=== PATIENT | female | born 1935 | race Caucasian/White ===

== ENCOUNTER 2018-12-20 09:12 | Outpatient (POV) | END 2018-12-20 17:00 | LOC: OUTPT 09:12 | PROVIDERS: ATTEND Otolaryngology | DX: H91.90 Unspecified hearing loss, unspecified ear (principal) ==

== ENCOUNTER 2020-10-21 12:08 | Inpatient (IN) ==
--- NOTE | 2020-10-21 12:21 | ED.PDOC ---
General ED Provider: Dr. ALEC DERAS Chief Complaint: Arrhythmia Stated Complaint: Chest pressure and palpitations. Time Seen by Provider: 10/21/20 12:20 Mode of Arrival: Walk-In Information Source: Patient Exam Limitations: No limitations Primary Care Provider: ALEAH SALES Nursing and Triage Documentation Reviewed and Agree: Yes Does patient meet sepsis criteria?: No System Inflammatory Response Syndrome: Not Applicable Sepsis Protocol: For patient's 13 years and over: Temp is 96.8 and below OR 101 and greater Pulse >90 BPM Resp >20/minute Acutely Altered Mental Status Are patient's symptoms suggestive of a new infection, such as: -Pneumonia -Skin, Soft Tissue -Endocarditis -UTI -Bone, Joint Infection -Implantable Device -Acute Abdominal Infection -Wound Infection -Meningitis -Blood Stream Catheter Infection -Unknown Cardiovascular Complaint Exam Palpitations Complaint/Exam Symptoms Are: Resolved Timing: Constant (For several minutes, then stopped, started and ended this morning.) Initial Severity: Moderate Current Severity: Mild Character: Reports Fast and Pounding Aggravating: Reports None Alleviating: Reports None Associated Signs and Symptoms: Reports Chest pain; Denies Lightheadedness, Dizziness, Syncope, Shortness of breath, Diaphoresis, Nausea and Vomiting Related Surgical History: Reports None Cardiac Risk Factors: Reports Family history Pulmonary Embolism Risk Factors: Reports None Atrial Fibrillation Risk Factors: Reports None Thyroid Exam: Normal Differential Diagnoses: Cardiomyopathy, Myocarditis, Pericarditis, Paroxysmal SVT and Other (A-fib) Review of Systems Review Of Systems Constitutional: Reports No symptoms Eyes: Reports No symptoms (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.) Ears, Nose, Mouth, Throat: Reports No symptoms Respiratory: Reports No symptoms Cardiac: Reports Chest pain and Palpitations GI: Reports No symptoms : Reports No symptoms Musculoskeletal: Reports No symptoms Skin: Reports No symptoms Neurological: Reports No symptoms Endocrine: Reports No symptoms Hematologic/Lymphatic: Reports No symptoms All Other Systems: Reviewed and Negative [facility] Surgical History History of section Status post appendectomy Status post hysterectomy Female Reproductive History Menstrual Hx Hysterectomy: No Physical Exam Physical Exam Appearance: Reports Well-appearing Ill-appearing: Not Applicable Pain Distress: Not Applicable Eyes: Reports ROSY and Other (Left eye lid edema ,post-surgical changes.) ENT: Reports Oropharynx normal Neck: Supple Respiratory: Reports Airway patent Cardiovascular: Reports RRR, Pulses normal, No rub and No murmur GI/: Reports Soft and Nontender Musculoskeletal: Reports Normal strength, ROM intact (for age), No edema and No calf tenderness Skin: Reports Warm and Normal color Neurological: Reports Sensation intact, Motor intact, Alert and Oriented Psychiatric: Reports Affect appropriate and Mood appropriate Interpretation Radiology Interpretation Radiology Interpretation By: Radiologist Radiology Results: Positive Exam Interpreted: Portable CXR Xray Comments: 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 Appearance: NAD Lungs: Clear Skin: Warm and Dry Neuro: Alert and Oriented X3 CV: RRR Physician Notification Case Discussed Physician Notified: Dr. Sales Time of Notification: 14:00 Physician Notified: Place in [facility], start cardizem po 60 mg bid Admit To: Observation Critical Care Note Critical Care Note Total Critical Care Time (mins): 0 Course Course Hematology/Chemistry: 10/21/20 12:47 10/21/20 12:47 Orders, Labs, Meds: Lab Review 10/21/20 10/21/20 10/21/20 12:47 12:47 12:47 WBC 8.43 RBC 4.39 Hgb 12.8 Hct 38.5 MCV 87.7 MCH 29.2 MCHC 33.2 RDW Coeff of Eulalia 15.3 H Plt Count 151 Immature Gran % (Auto) 2.1 Neut % (Auto) 70.6 Lymph % (Auto) 22.2 Shelby % (Auto) 4.6 Eos % (Auto) 0.1 Baso % (Auto) 0.4 Neut # (Auto) 6.0 Lymph # (Auto) 1.9 Shelby # (Auto) 0.4 Eos # (Auto) 0.0 Baso # (Auto) 0.0 Immature Gran # (Auto) 0.2 PT 9.8 INR 0.92 APTT 21.6 L Sodium 140.1 Potassium 4.56 Chloride 106.3 Carbon Dioxide 27.4 Anion Gap 10.96 BUN 22.2 H Creatinine 0.73 Estimated GFR (MDRD) 76.00 BUN/Creatinine Ratio 30.41 Glucose 106.2 H Calcium 9.11 Total Bilirubin 0.47 AST 21.9 ALT 14.4 Alkaline Phosphatase 58.4 Troponin I < 0.012 NT-Pro-B Natriuret Pep 521.000 H Total Protein 6.66 Albumin 4.15 Globulin 2.51 Albumin/Globulin Ratio 1.65 Urine Color Urine Clarity Urine pH Ur Specific [place] Urine Protein Urine Glucose (UA) Urine Ketones Urine Blood Urine Nitrite Urine Bilirubin Urine Urobilinogen Ur Leukocyte Esterase Urine Microscopic RBC Ur Squamous Epith Cells 10/21/20 13:00 WBC RBC Hgb Hct MCV MCH MCHC RDW Coeff of Eulalia Plt Count Immature Gran % (Auto) Neut % (Auto) Lymph % (Auto) Shelby % (Auto) Eos % (Auto) Baso % (Auto) Neut # (Auto) Lymph # (Auto) Shelby # (Auto) Eos # (Auto) Baso # (Auto) Immature Gran # (Auto) PT INR APTT Sodium Potassium Chloride Carbon Dioxide Anion Gap BUN Creatinine Estimated GFR (MDRD) BUN/Creatinine Ratio Glucose Calcium Total Bilirubin AST ALT Alkaline Phosphatase Troponin I NT-Pro-B Natriuret Pep Total Protein Albumin Globulin Albumin/Globulin Ratio Urine Color Yellow Urine Clarity Clear Urine pH 6.5 Ur Specific [place] <=1.005 Urine Protein Negative Urine Glucose (UA) Negative Urine Ketones Negative Urine Blood Trace-lysed Urine Nitrite Negative Urine Bilirubin Negative Urine Urobilinogen 0.2 Ur Leukocyte Esterase Negative Urine Microscopic RBC 0-2 Ur Squamous Epith Cells Not present Orders Category Date Time Status EKG-(ED ONLY) Stat CARDIO 10/21/20 12:33 Ordered ED IV/MEDIPORT/POWERPORT .ONCE EMERGENCY 10/21/20 12:33 Active CBC W/ AUTO DIFF Stat LAB 10/21/20 12:33 Ordered COMPREHENSIVE METABOLIC PANEL Stat LAB 10/21/20 12:47 Received NT-PROBNP Stat LAB 10/21/20 12:47 Received PARTIAL THROMBOPLASTIN TIME Stat LAB 10/21/20 12:47 Received PT WITH INR Stat LAB 10/21/20 12:47 Received TROPONIN I Stat LAB 10/21/20 12:47 Received URINALYSIS C & S IF INDICATED Stat LAB 10/21/20 13:02 Ordered 0.9 % Sodium Chloride [Saline Flush] MEDS 10/21/20 12:33 Active 1 syr IVF PRN PRN Aspirin [Aspirin Chewable] MEDS 10/21/20 12:33 Discontinued 81 mg PO ONCE ONE Nitroglycerin [Nitrostat] MEDS 10/21/20 12:33 Active 0.4 mg SL Q5MIN X 3 DOSES PRN CHEST, 1V AP ONLY Stat RADS 10/21/20 12:33 Ordered Medications Generic Name Dose Route Start Last Admin Trade Name Freq PRN Reason Stop Dose Admin Nitroglycerin 0.4 mg 10/21/20 12:33 Nitroglycerin 0.4 Mg Tab.Subl SL Q5MIN X 3 DOSES PRN Chest Pain Sodium Chloride 1 syr 10/21/20 12:33 0.9% Sodium Chloride 10 Ml Disp.Syrin IVF PRN PRN To flush IV Discontinued Medications Generic Name Dose Route Start Last Admin Trade Name Freq PRN Reason Stop Dose Admin Aspirin 81 mg 10/21/20 12:33 10/21/20 13:09 Aspirin 81 Mg Tab.Chew PO 10/21/20 12:34 81 mg ONCE ONE Administration Labs reviewed, WNL. NTG not given because had no CP and BP improving. Vital Signs: Temp Pulse Resp BP Pulse Ox 10/21/20 12:12 96.6 F L 78 16 203/79 H 100 VALERIE Risk Score VALERIE Risk Score: Risk Score Odds of by 30D 0 0.1 (0.1-0.2) 1 0.3 (0.2-0.3) 2 0.4 (0.3-0.5) 3 0.7 (0.6-0.9) 4 1.2 (1.0-1.5) 5 2.2 (1.9-2.6) 6 3.0 (2.5-3.6) 7 4.8 (3.8-6.1) Discharge Plan Discharge Patient Disposition: PLACED OBSERVATION Discharge Problem: Chest pain, Heart palpitations Prescriptions: No Action atorvastatin 20 MG tablet 20 mg PO DAILY RF: 0 tramadol 50 MG tablet 50 mg PO BID RF: 0 prednisone 5 mg tablet 5 mg PO DAILY RF: 0 ropinirole 0.25 mg tablet 0.25 mg PO BEDTIME RF: 0 pantoprazole 40 mg tablet,delayed release (DR/EC) 40 mg PO DAILY RF: 0 naproxen 375 mg tablet,delayed release (DR/EC) 375 mg PO BIDWMEAL RF: 0 ED Provider: ALEC DERAS Condition: Stable Physician Progress Note: [Chest pain/palpitations. Work-up unremarkable. HTN persisting. Discussed with Dr. Sales, place in obs tele.]
[2020-10-21] MEDS ORDERED: NITROSTAT SL PRN ×2 (12:33→13:54)
[2020-10-21] MEDS ORDERED: ASPIRIN CHEWABLE PO ONE (12:33)
[2020-10-21 12:51] LABS: BASOPHILS % (AUTO) 0.4 % (0.0-3.0); EOSINOPHILS % (AUTO) 0.1 % (0.0-7.0); HEMATOCRIT 38.5 % (37.0-47.0); HEMOGLOBIN 12.8 g/dl (12.0-16.0); IMMATURE GRANULOCYTE # (AUTO) 0.2 (0.0-1.0); IMMATURE GRANULOCYTE % (AUTO) 2.1 % (0.0-5.0); LYMPHOCYTES # (AUTO) 1.9 K/uL (0.60-3.4); LYMPHOCYTES % (AUTO) 22.2 (10.0-50.0); MEAN CORPUSCULAR HEMOGLOBIN 29.2 pg (27.0-31.0); MEAN CORPUSCULAR HGB CONC 33.2 (31.8-35.4); MEAN CORPUSCULAR VOLUME 87.7 fl (81.0-99.0); MONOCYTES # (AUTO) 0.4 K/uL (0.4-2.0); MONOCYTES % (AUTO) 4.6 (0-10); NEUTROPHILS % (AUTO) 70.6 % (42.2-75.2); PLATELET COUNT 151 10^3/uL (140-440); RDW COEFFICIENT OF VARIATION 15.3 % (11.6-14.8); RED BLOOD COUNT 4.39 10^6/ul (4.20-5.40); WHITE BLOOD COUNT 8.43 K/ul (4.6-10.2)
[2020-10-21 13:05] LABS: ALANINE AMINOTRANSFERASE 14.4 U/L (0-35); ALBUMIN 4.15 g/dL (3.5-5.0); ALKALINE PHOSPHATASE 58.4 U/L (53-141); ASPARTATE AMINO TRANSFERASE 21.9 U/L (14-36); BILIRUBIN,TOTAL 0.47 mg/dL (0.2-1.3); BLOOD UREA NITROGEN 22.2 mg/dL (7-17); CALCIUM 9.11 mg/dL (8.4-10.2); CARBON DIOXIDE 27.4 mmol/L (22-30.0); CHLORIDE 106.3 mmol/L (98-107); CREATININE 0.73 mg/dL (0.60-1.30); GLUCOSE 106.2 mg/dL (74-106); POTASSIUM 4.56 mmol/L (3.5-5.1); SODIUM 140.1 mmol/L (134.5-145); TOTAL PROTEIN 6.66 g/dL (6.3-8.2)
[2020-10-21 13:10] LABS: BILIRUBIN,URINE Negative (NEGATIVE); CLARITY,URINE Clear (CLEAR); COLOR,URINE Yellow (YELLOW); GLUCOSE, URINE (UA) Negative (NEGATIVE); KETONES,URINE Negative (NEGATIVE); LEUKOCYTE ESTERASE ,URINE Negative (NEGATIVE); NITRITE,URINE Negative (NEGATIVE); PH,URINE 6.5 (5-9); PROTEIN,URINE Negative (NEGATIVE); URINE, BLOOD Trace-lysed (NEGATIVE); UROBILINOGEN,URINE 0.2 (0.2)
[2020-10-21 13:14] LABS: PARTIAL THROMBOPLASTIN TIME 21.6 SEC (23.9-40.0); PROTHROMBIN TIME 9.8 SEC (9.3-11.0)
--- NOTE | 2020-10-21 13:14 | DI ---
EXAM: Chest one view HISTORY: Dyspnea COMPARISON: None TECHNIQUE: Single view of the chest was performed FINDINGS: No airspace consolidation. Granulomas calcification. There is no pleural effusion or pne umothorax. The heart is enlarged in size. The mediastinal contour is normal, noting atherosclerosis . There are no acute abnormalities of the bones. IMPRESSION: Cardiomegaly. No acute cardiopulmonary process.
[2020-10-21 13:15] LABS: SQUAMOUS EPITHELIAL CELL,UR NOT PRESENT (0-5); URINE RBC, MICROSCOPIC 0-2 (0-2)
[2020-10-21 13:17] LABS: TROPONIN I < 0.012 ng/ml (0.0000-0.120)
[2020-10-21] MEDS ORDERED: ATROPINE SULFATE PFS IVP PRN (13:54)
[2020-10-21] MEDS ORDERED: TYLENOL PO PRN (13:54)
[2020-10-21 14:24] LABS: BORDETELLA PARAPERTUSSIS (PCR) NOT DETECTED (NOT DETECT); BORDETELLA PERTUSSIS (PCR) NOT DETECTED (NOT DETECT); CHLAMYDIA PNEUMONIAE (PCR) NOT DETECTED (NOT DETECT); CORONAVIRUS 229E (PCR) NOT DETECTED (NOT DETECT); CORONAVIRUS HKU1 (PCR) NOT DETECTED (NOT DETECT); CORONAVIRUS NL63 (PCR) NOT DETECTED (NOT DETECT); CORONAVIRUS OC43 (PCR) NOT DETECTED (NOT DETECT); HUMAN METAPNEUMOVIRUS (PCR) NOT DETECTED (NOT DETECT); HUMAN RHINOVIRUS/ENTEROV (PCR) NOT DETECTED (NOT DETECT); INFLUENZA B (PCR) NOT DETECTED (NOT DETECT); MYCOPLASMA PNEUMONIAE (PCR) NOT DETECTED (NOT DETECT); PARAINFLUENZA VIRUS 1 (PCR) NOT DETECTED (NOT DETECT); PARAINFLUENZA VIRUS 2 (PCR) NOT DETECTED (NOT DETECT); PARAINFLUENZA VIRUS 3 (PCR) NOT DETECTED (NOT DETECT); PARAINFLUENZA VIRUS 4 (PCR) NOT DETECTED (NOT DETECT); RESPIRATORY SYNCYTIAL V (PCR) NOT DETECTED (NOT DETECT); SARS_COV_2 (PCR) NOT DETECTED (NOT DETECT)
[2020-10-21] MEDS ORDERED: CATAPRES PO ONE (14:42)
[2020-10-21 15:11] LABS: ADENOVIRUS (PCR) NOT DETECTED (NOT DETECT)
[2020-10-21 16:12] VITALS: BMI 25.0
[2020-10-21] MEDS ORDERED: NAPROXEN 375 MG PO SCH (16:15)
[2020-10-21] MEDS: CARDIZEM PO SCH ×2 (17:34→20:55)
[2020-10-21] MEDS: REQUIP PO SCH (20:55)
[2020-10-21] MEDS: ULTRAM PO SCH (20:55)
[2020-10-21 20:59] LABS: CREATINE KINASE 29.4 U/L (30-135)
[2020-10-21 21:12] LABS: TROPONIN I 0.012 ng/ml (0.0000-0.120)
[2020-10-22 04:46] LABS: BASOPHILS % (AUTO) 0.6 % (0.0-3.0); EOSINOPHILS % (AUTO) 0.5 % (0.0-7.0); HEMATOCRIT 36.5 % (37.0-47.0); HEMOGLOBIN 11.9 g/dl (12.0-16.0); IMMATURE GRANULOCYTE # (AUTO) 0.2 (0.0-1.0); IMMATURE GRANULOCYTE % (AUTO) 2.8 % (0.0-5.0); LYMPHOCYTES # (AUTO) 2.3 K/uL (0.60-3.4); LYMPHOCYTES % (AUTO) 35.5 (10.0-50.0); MEAN CORPUSCULAR HEMOGLOBIN 28.9 pg (27.0-31.0); MEAN CORPUSCULAR HGB CONC 32.6 (31.8-35.4); MEAN CORPUSCULAR VOLUME 88.6 fl (81.0-99.0); MONOCYTES # (AUTO) 0.5 K/uL (0.4-2.0); MONOCYTES % (AUTO) 7.9 (0-10); NEUTROPHILS # (AUTO) 3.4 K/ul (2.0-6.9); NEUTROPHILS % (AUTO) 52.7 % (42.2-75.2); PLATELET COUNT 141 10^3/uL (140-440); RDW COEFFICIENT OF VARIATION 15.2 % (11.6-14.8); RED BLOOD COUNT 4.12 10^6/ul (4.20-5.40); WHITE BLOOD COUNT 6.42 K/ul (4.6-10.2)
[2020-10-22 04:54] LABS: ALANINE AMINOTRANSFERASE 12.8 U/L (0-35); ALBUMIN 3.65 g/dL (3.5-5.0); ALKALINE PHOSPHATASE 51.2 U/L (53-141); ASPARTATE AMINO TRANSFERASE 18.4 U/L (14-36); BILIRUBIN,TOTAL 0.49 mg/dL (0.2-1.3); BLOOD UREA NITROGEN 24.3 mg/dL (7-17); CALCIUM 9.03 mg/dL (8.4-10.2); CARBON DIOXIDE 31.6 mmol/L (22-30.0); CHLORIDE 103.8 mmol/L (98-107); CREATINE KINASE 24.5 U/L (30-135); CREATININE 0.79 mg/dL (0.60-1.30); POTASSIUM 4.33 mmol/L (3.5-5.1); SODIUM 139.4 mmol/L (134.5-145); TOTAL PROTEIN 5.91 g/dL (6.3-8.2)
[2020-10-22 05:05] LABS: TROPONIN I < 0.012 ng/ml (0.0000-0.120)
[2020-10-22] MEDS: PROTONIX PO SCH (05:41)
[2020-10-22] MEDS: PREDNISONE PO SCH (08:53)
[2020-10-22] MEDS: ULTRAM PO SCH ×2 (08:53→20:34)
[2020-10-22] MEDS: CARDIZEM PO SCH ×2 (08:53→20:34)
[2020-10-22] MEDS: LIPITOR PO SCH (08:53)
[2020-10-22] MEDS: NAPROSYN PO SCH ×2 (08:54→17:44)
--- NOTE | 2020-10-22 09:44 | PCM.PROG ---
Attending Provider: ATTENDING PROVIDER: Dr. ALEAH SALES This patient is seen with Jayla Velasquez, Nurse Practitioner. DATE OF SERVICE: 10/22/20 SUBJECTIVE: This 84 year old /WHITE F was hospitalized 10/21/20. Resting comfortably. No more episodes of tachycardia. Denies chest pain. REVIEW OF SYSTEMS: CONSTITUTIONAL: Fatigue. No night sweats. No malaise, lethargy. No fever or chills. HEENT: Eyes: No visual changes. No eye pain. No eye discharge. ENT: No runny nose. No epistaxis. No sinus pain. No odynophagia. No congestion. RESPIRATORY: No cough, no congestion. No hemoptysis. No shortness of breath. CARDIOVASCULAR: No angina symptoms. No CHF symptoms. No atypical chest pain for CAD. No palpitations. No orthopnea.. GASTROINTESTINAL: No abdominal pain. No nausea or vomiting. No diarrhea or constipation. No hematemesis. No hematochezia. GENITOURINARY: No urgency. No frequency. No dysuria. No hematuria. No obstructive symptoms. No discharge. No pain. No significant abnormal bleeding. MUSCULOSKELETAL: No musculoskeletal pain; no joint swelling. NEUROLOGICAL: Awake, alert, oriented to time, place and person. No headache. No neck pain. No syncope. No seizures. No dizziness. PSYCHIATRIC: Not anxious. No depression. No suicidal thoughts. No homicidal thoughts. SKIN: No rash. No lesions. No wounds. ENDOCRINE: No unexplained weight loss. No weight gain. HEMATOLOGIC/LYMPHATIC: No anemia. No purpura. No petechiae. No prolonged or excessive bleeding. No palpable lymph nodes. PHYSICAL EXAMINATION: GENERAL: The patient is awake, alert and oriented, lying/sitting in bed in no distress. VITAL SIGNS: Temperature 97.4 F, Pulse 54, Respiratory Rate 18, BP 146/56, Pulse Ox 97% HEENT: Head normocephalic, atraumatic. Eyes: Extraocular muscles are intact. Pupils are equal, round and reactive to light and accommodation. Ears: No lesions. Nose appeared normal. Throat: No exudate or erythema. NECK: Supple. No JVD, no carotid bruit. No lymphadenopathy or thyromegaly. LUNGS: Diminished breath sounds. Clear to auscultation. Percussion note normal. Chest symmetrical. HEART: S1, S2, no S3. No murmurs. No cyanosis or clubbing. No ascites. Pulses: Dorsalis pedis and posterior tibial pulses +1 to +2 both sides. ABDOMEN: Soft. Non-tender. Bowel sounds active. No CVA tenderness. No mass felt. EXTREMITIES: No edema. Full range of motion of all extremities, equal. NEUROLOGIC: No focal deficit. Cranial nerves II through XII are grossly intact. No headache. No double vision. SKIN: Not dry. Intact. Turgor-normal. LYMPHATIC: No palpable lymph nodes/no lymphedema. MUSCULOSKELETAL: Normal joints with no swelling. Muscle tone is normal. LAB REVIEW: 10/22/20 04:30 10/22/20 04:30 10/22/20 04:30: WBC 6.42, RBC 4.12 L, Hgb 11.9 L, Hct 36.5 L, MCV 88.6, MCH 28.9, MCHC 32.6, RDW Coeff of Eulalia 15.2 H, Plt Count 141, Immature Gran % (Auto) 2.8, Neut % (Auto) 52.7, Lymph % (Auto) 35.5, Kaufman % (Auto) 7.9, Eos % (Auto) 0.5, Baso % (Auto) 0.6, Neut # (Auto) 3.4, Lymph # (Auto) 2.3, Kaufman # (Auto) 0.5, Eos # (Auto) 0.0, Baso # (Auto) 0.0, Immature Gran # (Auto) 0.2 10/22/20 04:30: Sodium 139.4, Potassium 4.33, Chloride 103.8, Carbon Dioxide 31.6 H, Anion Gap 8.33, BUN 24.3 H, Creatinine 0.79, Estimated GFR (MDRD) 69.00, BUN/Creatinine Ratio 30.75, Glucose 89.0, Calcium 9.03, Total Bilirubin 0.49, AST 18.4, ALT 12.8, Alkaline Phosphatase 51.2 L, Total Creatine Kinase 24.5 L, Troponin I < 0.012, Total Protein 5.91 L, Albumin 3.65, Globulin 2.26, Albumin/Globulin Ratio 1.61 10/21/20 20:46: Total Creatine Kinase 29.4 L, Troponin I 0.012 10/21/20 14:08: Adenovirus (PCR) Not detected, B. pertussis DNA (PCR) Not detected, B.parapertussis DNA PCR Not detected, C. pneumoniae DNA (PCR) Not detected, Coronavirus OC43 (PCR) Not detected, Coronavirus HKU1 (PCR) Not detected, Coronavirus 229E (PCR) Not detected, Coronavirus NL63 (PCR) Not detected, Human Metapneumovir PCR Not detected, Influenza Type A (PCR) Not detected, Influenza B (RT-PCR) Not detected, M. pneumoniae (PCR) Not detected, Parainfluenza 1 (PCR) Not detected, Parainfluenza 2 (PCR) Not detected, Parainfluenza 3 (PCR) Not detected, Parainfluenza 4 (PCR) Not detected, RSV (PCR) Not detected, Entero/Rhino (PCR) Not detected, SARS-CoV-2 (PCR) Not detected 10/21/20 13:00: Urine Color Yellow, Urine Clarity Clear, Urine pH 6.5, Ur Specific [place] <=1.005, Urine Protein Negative, Urine Glucose (UA) Negative, Urine Ketones Negative, Urine Blood Trace-lysed, Urine Nitrite Negative, Urine Bilirubin Negative, Urine Urobilinogen 0.2, Ur Leukocyte Esterase Negative, Urine Microscopic RBC 0-2, Ur Squamous Epith Cells Not present 10/21/20 12:47: TSH 2.660 10/21/20 12:47: Free T4 1.17 10/21/20 12:47: Sodium 140.1, Potassium 4.56, Chloride 106.3, Carbon Dioxide 27.4, Anion Gap 10.96, BUN 22.2 H, Creatinine 0.73, Estimated GFR (MDRD) 76.00, BUN/Creatinine Ratio 30.41, Glucose 106.2 H, Calcium 9.11, Total Bilirubin 0.47, AST 21.9, ALT 14.4, Alkaline Phosphatase 58.4, Troponin I < 0.012, NT-Pro-B Natriuret Pep 521.000 H, Total Protein 6.66, Albumin 4.15, Globulin 2.51, Albumin/Globulin Ratio 1.65 10/21/20 12:47: PT 9.8, INR 0.92, APTT 21.6 L 10/21/20 12:47: WBC 8.43, RBC 4.39, Hgb 12.8, Hct 38.5, MCV 87.7, MCH 29.2, MCHC 33.2, RDW Coeff of Eulalia 15.3 H, Plt Count 151, Immature Gran % (Auto) 2.1, Neut % (Auto) 70.6, Lymph % (Auto) 22.2, Kaufman % (Auto) 4.6, Eos % (Auto) 0.1, Baso % (Auto) 0.4, Neut # (Auto) 6.0, Lymph # (Auto) 1.9, Kaufman # (Auto) 0.4, Eos # (Auto) 0.0, Baso # (Auto) 0.0, Immature Gran # (Auto) 0.2 ASSESSMENT: Please see below. 1. Sinus tachycardia 2. Shortness of breath 3. Hypertension PLAN: 1. Continue p.o. Cardizem. 2. 2D echocardiogram. Plan and coordination of the patient's care discussed in the presence of Chemist [employer] and nurse. CONDITION: Stable SCRIBED BY: SARAH ROY Instructor Industrial Design scribed while in presence of service performed by Dr. Sales/Jayla Velasquez APRN on 10/22/20 ([id number])
--- NOTE | 2020-10-22 11:08 | HP ---
DATE OF SERVICE: 10/21/2020 REASON FOR HOSPITALIZATION/HISTORY OF PRESENT ILLNESS: 89 year old white female who presented to the emergency room with chest pressure and palpitations. The patient has a history of PAC and PVC's. PAST MEDICAL HISTORY/SURGICAL HISTORY: Chronic anemia Hyperglycemia B12 deficiency Dyslipidemia Hypertension Restless leg syndrome Degenerative disc disease of the spine History of sacral fracture PAC's PVC's GERD History of left eye melanoma on 02/[address] Noguera at [facility] Detached retina 03/[address] Bahena in [place] History of hiatal hernia surgery Dependent leg edema REVIEW OF SYSTEMS: CONSTITUTIONAL: No night sweats. No fatigue, malaise, lethargy. No fever or chills. HEENT: Eyes: No visual changes. No eye pain. No eye discharge. ENT: No runny nose. No epistaxis. No sinus pain. No sore throat. No odynophagia. No ear pain. No congestion. RESPIRATORY: No cough, no congestion. No hemoptysis. No shortness of breath. CARDIOVASCULAR: No angina symptoms. No CHF symptoms. No atypical chest pain for CAD. Palpitations. No PND. No orthopnea. Chest pressure. GASTROINTESTINAL: No abdominal pain. No nausea or vomiting. No diarrhea or constipation. No hematemesis. No hematochezia. GENITOURINARY: No urgency. No frequency. No dysuria. No hematuria. No obstructive symptoms. No discharge. No pain. No significant abnormal bleeding. MUSCULOSKELETAL: No musculoskeletal pain. No joint swelling. No arthritis. NEUROLOGICAL: No headache. No neck pain. No syncope. No seizures. No dizziness. PSYCHIATRIC: Anxiety. No depression. No suicidal thoughts. No homicidal thoughts. SKIN: No rash. No lesions. No wounds. ENDOCRINE: No unexplained weight loss. No weight gain. HEMATOLOGIC/LYMPHATIC: No anemia. No purpura. No petechiae. No prolonged or excessive bleeding. No palpable lymph nodes. PERSONAL/FAMILY/SOCIAL HISTORY: The patient is lives at home by herself but has strong family support. Non-smoker. No alcohol or illicit drug use. MEDICATIONS: Atorvastatin 20mg PO daily Tramadol 50mg PO BID Ropinirole 0.25mg PO BEDTIME Prednisone 5mg PO daily Pantoprazole 40mg PO Daily Naproxen 375mg PO BID with meals ALLERGIES: No known allergies PHYSICAL EXAMINATION: GENERAL: The patient is alert and oriented times three. VITAL SIGNS: Temperature 96.6, heart rate 80, respiratory rate 16, blood pressure 203/79 and pulse ox 100 HEENT: Head normocephalic, atraumatic. Eyes: Extraocular muscles are intact. Pupils are equal, round and reactive to light and accommodation. Ears: No lesions. Nose appeared normal. Throat: No exudate or erythema. NECK: Supple. No JVD, no carotid bruit. No lymphadenopathy or thyromegaly. LUNGS: Diminished breath sounds. Clear to auscultation. Percussion note normal. Chest symmetrical. HEART: S1, S2, no S3. No murmur. No cyanosis or clubbing. No ascites. Pulses: Dorsalis pedis and posterior tibial pulses +1 to +2 bilaterally. ABDOMEN: Soft. Nontender. Bowel sounds active. No CVA tenderness. No mass felt. EXTREMITIES: No edema. Full range of motion of all extremities, equal. NEUROLOGIC: No focal deficit. Cranial nerves II through XII are grossly intact. No headache, no double vision or headache. SKIN: Not dry. Intact. Turgor - normal. LYMPHATIC: No palpable lymph nodes/no lymphedema. MUSCULOSKELETAL: Normal joints with no swelling. Muscle tone is normal. LABS: WBC 8.43, hgb 12.8, hct 38.5. plt count 151, sodium 140,potassium 4.5, BUN 22, creatinine 0.73, glucose 106. INR 0.92, Troponin < 0.012, NT PRO BNP 521. Urine shows trace blood otherwise this is normal. EKG showed sinus tachycardia with heart rate in the 140s. ASSESSMENT: 1. Hypertensive emergency 2. Sinus tachycardia 3. Dyslipidemia PLAN: 1. We will admit 2 Routine telemetry orders 3. CBC and CMP daily 4. T4 TSH 5. Continue all home medications 6. U/A 7. Chest x-ray 8. Start Cardizem 60mg BID PO 9. Regular diet 10.Oxygen 1-2 liters Will follow closely. TIME SPENT: More than 70 minutes. MTDD
[2020-10-22] MEDS: REQUIP PO SCH (20:34)
[2020-10-23 04:37] LABS: BASOPHILS % (AUTO) 0.6 % (0.0-3.0); EOSINOPHILS % (AUTO) 0.6 % (0.0-7.0); HEMATOCRIT 38.3 % (37.0-47.0); HEMOGLOBIN 12.4 g/dl (12.0-16.0); IMMATURE GRANULOCYTE # (AUTO) 0.2 (0.0-1.0); IMMATURE GRANULOCYTE % (AUTO) 2.3 % (0.0-5.0); LYMPHOCYTES # (AUTO) 2.2 K/uL (0.60-3.4); LYMPHOCYTES % (AUTO) 33.7 (10.0-50.0); MEAN CORPUSCULAR HEMOGLOBIN 28.8 pg (27.0-31.0); MEAN CORPUSCULAR HGB CONC 32.4 (31.8-35.4); MEAN CORPUSCULAR VOLUME 88.9 fl (81.0-99.0); MONOCYTES # (AUTO) 0.6 K/uL (0.4-2.0); MONOCYTES % (AUTO) 8.5 (0-10); NEUTROPHILS # (AUTO) 3.6 K/ul (2.0-6.9); NEUTROPHILS % (AUTO) 54.3 % (42.2-75.2); PLATELET COUNT 147 10^3/uL (140-440); RED BLOOD COUNT 4.31 10^6/ul (4.20-5.40); WHITE BLOOD COUNT 6.62 K/ul (4.6-10.2)
[2020-10-23 04:52] LABS: ALANINE AMINOTRANSFERASE 10.8 U/L (0-35); ALBUMIN 3.67 g/dL (3.5-5.0); ALKALINE PHOSPHATASE 54.6 U/L (53-141); ASPARTATE AMINO TRANSFERASE 16.9 U/L (14-36); BILIRUBIN,TOTAL 0.41 mg/dL (0.2-1.3); BLOOD UREA NITROGEN 25.1 mg/dL (7-17); CALCIUM 9.28 mg/dL (8.4-10.2); CARBON DIOXIDE 34.4 mmol/L (22-30.0); CHLORIDE 102.2 mmol/L (98-107); CREATININE 0.9 mg/dL (0.60-1.30); GLUCOSE 109.8 mg/dL (74-106); POTASSIUM 4.68 mmol/L (3.5-5.1); SODIUM 141.2 mmol/L (134.5-145); TOTAL PROTEIN 6.01 g/dL (6.3-8.2)
[2020-10-23 05:28] VITALS: BP 164/61; TEMP 97.7
[2020-10-23] MEDS: PROTONIX PO SCH (05:56)
[2020-10-23] MEDS: LIPITOR PO SCH (09:06)
[2020-10-23] MEDS: ULTRAM PO SCH (09:06)
[2020-10-23] MEDS: PREDNISONE PO SCH (09:06)
[2020-10-23] MEDS: CARDIZEM PO SCH (09:06)
[2020-10-23] MEDS: NAPROSYN PO SCH (09:06)
--- NOTE | 2020-10-24 08:11 | PN ---
DATE OF SERVICE: 10/21/2020 SUBJECTIVE: The patient was seen and examined in the emergency room. The daughter was present. The patient is hospitalized with chest pressure. The pulse rate was 140 at the time. Blood pressure systolic was 200 went she arrived to the emergency room. She is going to be on Cardizem 60mg BID. Her workup is negative for acute myocardial event. The patient's history and physical and management plan was done with Nurse Practitioner. TIME SPENT: More than 30 minutes. Plan and coordination of the patient's care discussed in the presence of nurse. JOSHUA
--- NOTE | 2020-10-24 09:45 | CM.DICTOOL ---
ADMISSION: 10/21/20 15:30 DISCHARGE: OCTOBER 23, 2020 DATE OF SERVICE: 10/23/20 FINAL DIAGNOSIS HYPERTENSIVE EMERGENCY PALPATATIONS DYSLIPIDEMIA HYPERTENSION HISTORY OF PVCs AND PACs HX: CHRONIC ANEMIA HYPERGLYCEMIA B 12 DEFIENCY DYSLIPIDEMIA HYPERTENSION HISTORY OF RESTLESS LEG SYNDROME DEGENERATIVE DISC DISEASE OF THE SPINE SACRAL FRACTURE PAC's PVC's GERD LEFT EYE MELANOMA ON 02/12, SEES DR[facility] G[facility]OLA AT [facility] DETACHED RETINA 03/[address] HOLDEN IN [place] DEPENDENT LEG EDEMA SURGICAL HISTORY: HIATAL HERNIA SURGERY CODE STATUS: DO NOT RESUSCITATE LAST VITALS Temp Pulse Resp BP Pulse Ox 97.7 F 57 L 16 164/61 H 97 10/23/20 05:26 10/23/20 05:26 10/23/20 05:26 10/23/20 05:26 10/23/20 05:26 TAKE THESE MEDICATIONS AT HOME Acetaminophen (Acetaminophen 325 Mg Tablet) 650 mg PO TID PRN PRN Reason: Headache Atorvastatin Calcium (Atorvastatin Calcium 20 Mg Tablet) 20 mg PO DAILY [facility] Last Admin: 10/23/20 09:06 Dose: 20 mg Diltiazem HCl (Diltiazem Hcl 60 Mg Tablet) 60 mg PO Q12HR [facility] Last Admin: 10/23/20 09:06 Dose: 60 mg Pantoprazole Sodium (Pantoprazole Sodium 40 Mg Tablet.) 40 mg PO QDAC [facility] Last Admin: 10/23/20 05:56 Dose: 40 mg Prednisone (Prednisone 5 Mg Tablet) 5 mg PO DAILYWM [facility] (TO FOLLOW UP WITH EYE DOCTOR ON HOW LONG TO TAKE) Last Admin: 10/23/20 09:06 Dose: 5 mg Ropinirole HCl (Ropinirole Hcl 0.25 Mg Tablet) 0.25 mg PO BEDTIME [facility] Last Admin: 10/22/20 20:34 Dose: 0.25 mg Tramadol HCl (Tramadol Hcl 50 Mg Tablet) 50 mg PO BID [facility] Last Admin: 10/23/20 09:06 Dose: 50 mg ASA 81 MG PO DAILY ALLERGIES No Known Allergies Allergy (Unverified 10/21/20 12:10) DISCONTINUED MEDICATIONS 1). Naproxen (Naproxen 250 Mg Tablet) 375 mg PO BIDWM [facility] NEW PRESCRIPTIONS: TYLENOL (Acetaminophen 325 Mg Tablet) 650 mg PO TID PRN CARDIZEM (Diltiazem Hcl 60 Mg Tablet) 60 mg PO Q12HR RAMBO ASA 81 MG PO DAILY SMOKING: N/A DISEASE SPECIFIC EDUCATION: ACTIVITY MD FOLLOW UP HTN DYSLIPIDEMIA IRREGULAR HEART RATES COVID GUIDELINES LAB REVIEW: 10/23/20 04:13 10/23/20 04:13 10/23/20 04:13: Sodium 141.2, Potassium 4.68, Chloride 102.2, Carbon Dioxide 34.4 H, Anion Gap 9.28, BUN 25.1 H, Creatinine 0.90, Estimated GFR (MDRD) 60.00, BUN/Creatinine Ratio 27.88, Glucose 109.8 H, Calcium 9.28, Total Bilirubin 0.41, AST 16.9, ALT 10.8, Alkaline Phosphatase 54.6, Total Protein 6.01 L, Albumin 3.67, Globulin 2.34, Albumin/Globulin Ratio 1.56 10/23/20 04:13: WBC 6.62, RBC 4.31, Hgb 12.4, Hct 38.3, MCV 88.9, MCH 28.8, MCHC 32.4, RDW Coeff of Eulalia 15.0 H, Plt Count 147, Immature Gran % (Auto) 2.3, Neut % (Auto) 54.3, Lymph % (Auto) 33.7, Catron % (Auto) 8.5, Eos % (Auto) 0.6, Baso % (Auto) 0.6, Neut # (Auto) 3.6, Lymph # (Auto) 2.2, Catron # (Auto) 0.6, Eos # (Auto) 0.0, Baso # (Auto) 0.0, Immature Gran # (Auto) 0.2 PLAN: DISCHARGE HOME: TODAY OCTOBER 23, 2020 INDEPENDENTLY AND LIVES WITH HER SON ACTIVITY: UP TOLERATED, CHANGE POSITIONS SLOWLY NO STRENUOUS ACTIVITIES, WALK WITH FREQUENT REST PERIODS STAY IN DOORS, ESPECIALLY WHEN HOT AND HUMID PANDEMIC PRECAUTIONS DIET: HEART HEALTHY AND NO FISH OR BIRD MEAT MD FOLLOW UP: SEE DR. SALES/CARMELA ZAMUDIO APRN/ BROOK POWELL APRN IN THE OFFICE IN 5-7 DAYS CALL [phone] AND MAKE APPOINTMENT, REMIND THEM IT IS A HOSPITAL FOLLOW-UP PRESENT TO LOCAL EMERGENCY ROOM IF UNABLE TO REACH YOUR DOCTOR AND THERE ARE CONCERNS FOLLOW UP WITH DR. HOLDEN AND DR. GURROLA REGARDING LT EYE AND PREDNISONE CONTINUATION CODE STATUS: DO NOT RESUSCITATE MRS LASSITER IS ALERT AND ORIENTED X 4. SHE HAS HAD NO FURTHER COMPLAINTS. NO FURTHER CHEST PAIN. DENIES ANY SOA. DENIES ANY PAIN. SKIN IS WARM AND DRY AND INTACT. SHE IS UP INDEPENDENTLY AND STEADY. INTAKE AND OUTPUT HAS BEEN WNL. NUTRITIONAL AND FLUID INTAKE SUBSTANTIAL WITH 75 -100% OF MEAL INTAKE. SHE IS CONTINENT OF BOWEL AND BLADDER. LAST BM 10/21/2020. SHE LIVES WITH HER SON AND IS INDEPENDENT WITH ALL OF HER ADLs AND IADLs. MD CARMELA BLUE, TRACY POWELL APRN
--- NOTE | 2020-10-25 08:17 | PN ---
10/21/2020: Level 5 10/22/2020: Intermediate 10/23/2020: D as in discharge MTDD
--- NOTE | 2020-10-25 09:56 | DS ---
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 GURROLA AT [facility], [place], [facility] 03/[address] HOLDEN IN [place] DEPENDENT LEG EDEMA SURGICAL HISTORY: HIATAL HERNIA SURGERY CODE STATUS: DO NOT RESUSCITATE LAST VITALS: Temp Pulse Resp BP Pulse Ox 97.7 F 57 L 16 164/61 H 97 10/23/20 05:26 10/23/20 05:26 10/23/20 05:26 10/23/20 05:26 10/23/20 05:26 DISCHARGE INSTRUCTIONS: DISCHARGE HOME: TODAY OCTOBER 23, 2020. INDEPENDENTLY AND LIVES WITH HER SON. MD FOLLOW UP: SEE DR. SALES/CARMELA ZAMUDIO APRN/ BROOK POWELL APRN IN THE OFFICE IN 5-7 DAYS. CALL [phone] AND MAKE APPOINTMENT, REMIND THEM IT IS A HOSPITAL FOLLOW-UP. PRESENT TO LOCAL EMERGENCY ROOM IF UNABLE TO REACH YOUR DOCTOR AND THERE ARE CONCERNS. FOLLOW UP WITH DR. HOLDEN AND DR. GURROLA REGARDING LT EYE AND PREDNISONE CONTINUATION. TAKE THESE MEDICATIONS AT HOME: Acetaminophen (Acetaminophen 325 Mg Tablet) 650 mg PO TID PRN PRN Reason: Headache Atorvastatin Calcium (Atorvastatin Calcium 20 Mg Tablet) 20 mg PO DAILY RAMBO Last Admin: 10/23/20 09:06 Dose: 20 mg Diltiazem HCl (Diltiazem Hcl 60 Mg Tablet) 60 mg PO Q12HR RAMBO Last Admin: 10/23/20 09:06 Dose: 60 mg Pantoprazole Sodium (Pantoprazole Sodium 40 Mg Tablet.) 40 mg PO QDAC RAMBO Last Admin: 10/23/20 05:56 Dose: 40 mg Prednisone (Prednisone 5 Mg Tablet) 5 mg PO DAILYWM RAMBO (TO FOLLOW UP WITH EYE DOCTOR ON HOW LONG TO TAKE) Last Admin: 10/23/20 09:06 Dose: 5 mg Ropinirole HCl (Ropinirole Hcl 0.25 Mg Tablet) 0.25 mg PO BEDTIME RAMBO Last Admin: 10/22/20 20:34 Dose: 0.25 mg Tramadol HCl (Tramadol Hcl 50 Mg Tablet) 50 mg PO BID RAMBO Last Admin: 10/23/20 09:06 Dose: 50 mg ASA 81 MG PO DAILY ALLERGIES: No Known Allergies Allergy (Unverified 10/21/20 12:10) DISCONTINUED MEDICATIONS: 1). Naproxen (Naproxen 250 Mg Tablet) 375 mg PO BIDWM [facility] NEW PRESCRIPTIONS: TYLENOL (Acetaminophen 325 Mg Tablet) 650 mg PO TID PRN CARDIZEM (Diltiazem Hcl 60 Mg Tablet) 60 mg PO Q12HR [facility] ASA 81 MG PO DAILY SMOKING: N/A DISEASE SPECIFIC EDUCATION: ACTIVITY MD FOLLOW UP HYPERTENSION DYSLIPIDEMIA IRREGULAR HEART RATES COVID GUIDELINES LAB REVIEW: 10/23/20 04:13 10/23/20 04:13 10/23/20 04:13: Sodium 141.2, Potassium 4.68, Chloride 102.2, Carbon Dioxide 34.4 H, Anion Gap 9.28, BUN 25.1 H, Creatinine 0.90, Estimated GFR (MDRD) 60.00, BUN/Creatinine Ratio 27.88, Glucose 109.8 H, Calcium 9.28, Total Bilirubin 0.41, AST 16.9, ALT 10.8, Alkaline Phosphatase 54.6, Total Protein 6.01 L, Albumin 3.67, Globulin 2.34, Albumin/Globulin Ratio 1.56 10/23/20 04:13: WBC 6.62, RBC 4.31, Hgb 12.4, Hct 38.3, MCV 88.9, MCH 28.8, MCHC 32.4, RDW Coeff of Eulalia 15.0 H, Plt Count 147, Immature Gran % (Auto) 2.3, Neut % (Auto) 54.3, Lymph % (Auto) 33.7, [place] % (Auto) 8.5, Eos % (Auto) 0.6, Baso % (Auto) 0.6, Neut # (Auto) 3.6, Lymph # (Auto) 2.2, [place] # (Auto) 0.6, Eos # (Auto) 0.0, Baso # (Auto) 0.0, Immature Gran # (Auto) 0.2 CODE STATUS: DO NOT RESUSCITATE ACTIVITY: UP TOLERATED, CHANGE POSITIONS SLOWLY NO STRENUOUS ACTIVITIES, WALK WITH FREQUENT REST PERIODS STAY IN DOORS, ESPECIALLY WHEN HOT AND HUMID PANDEMIC PRECAUTIONS DIET: HEART HEALTHY AND NO FISH OR BIRD MEAT HOSPITAL COURSE: 84 year old white female hospitalized with palpitations, chest pressure. The patient's blood pressure at that time was 200 systolic in the emergency room. The patient had no arrhythmia but the patient's history was typical or possibility of atrial fibrillation or SVT with chest pressure, chest tightness which immediate subsided when the patient says that her pulse slowed down. The daughter is the one who had taken the pulse and checked out at the time and she was very reliable. In any care the patient did not have any acute myocardial event. Her EKG showed sinus rhythm with LVH unchanged as before. Cardiac markers were negative. Two days telemetry did not show any significant arrhythmias with occasional PVC's the patient was started on Cardizem 60mg twice a day. The patient also was put on baby aspirin. She was advised to continue rest of her medications; Atorvastatin, Tramadol, Pantoprazole, Prednisone. She is advised to discontinue Naproxen. At the time of discharge the patient is up and about. Blood pressure is more or less well controlled. The patient's echocardiogram showed an LVH with normal LV contractility and enlarged left atrial cavity. CONDITION: Stable. TIME SPENT: More than 60 minutes. BHANUD
--- NOTE | 2020-10-25 11:34 | PN ---
DATE OF SERVICE: 10/22/2020 SUBJECTIVE: The patient's blood pressure has been normal. She has been on 60mg Cardizem twice a day. No arrhythmias of any significance noted. The patient has occasional PAC's and PVC. Cardiovascular status is stable. Cardiac markers are negative. The patient was seen and examined with the Nurse Practitioner. TIME SPENT: More than 30 minutes. Plan and coordination of the patient's care discussed in the presence of nurse. JOSHUA
--- NOTE | 2020-10-25 13:40 | ECHO2D ---
Date of Exam: 10/23/2020 Ordering Physician: DR. ALEAH SALES Room #: 104 Reason for Echo: CHEST PAIN, TACHYCARDIA M-Mode Normal Adult Results LV Dimensions Normal Adult Results AoV Opening excursions >1.6 >1.6 LVEDD-base- 3.5-5.8 4.6 Ao root dimensions 2.0-3.7 3.5 LVESD-base- 3.1-4.6 L. Atrium dimensions 1.9-3.8 5.8 Post. Wall thickness 0.8-1.1 1.2 IV septum (thickness) 0.7-1.2 1.4 Post. Wall excursion 0.72-1.3 NORMAL Septal motion NORMAL Systolic motion R. Ventricular cavity 1.5-2.0 NORMAL LVEF 60% >60% Paradoxical septal wall motion NORMAL 2-D : 2-D M Mode Echocardiogram was performed using apical four chamber and left parasternal long and short axis views. Mitral, tricuspid and aortic valves appear to be normal. Contractility of the left ventricle seems to be normal, so is the cavity size. ENLARGED LEFT ATRIAL CAVITY. Aortic root appears to be normal. There is no pericardial effusion. There is no thrombus noted in the left ventricle or left atrial cavity. M-MODE: MV: NORMAL AV: NORMAL TV: NORMAL PV: CHAMBER SIZE: ENLARGED LEFT ATRIAL CAVITY WALL MOTION: NORMAL PERICARDIUM: NORMAL INTERPRETATION: 1. LEFT VENTRICULAR HYPERTROPHY WITH ENLARGED LEFT ATRIAL CAVITY 2. NORMAL VALVES 3. NORMAL LEFT VENTRICULAR CONTRACTILITY AND LEFT VENTRICLE SIZE MTDD
--- NOTE | 2020-10-28 13:37 | PN ---
DATE OF SERVICE: 10/23/20 SUBJECTIVE: 84-year-old white female hospitalized with chest pressure with palpitations. The patient's pulse rate was noted to be 140 by the daughter. During the stay in the hospital, the patient's blood pressure was more or less well-controlled with no palpitation and no arrhythmias of any significance noted on telemetry. The patient is feeling a lot better. Cardiac markers are all negative. REVIEW OF SYSTEMS: CONSTITUTIONAL: No night sweats. No fatigue, malaise, lethargy. No fever or chills. HEENT: Eyes: No visual changes. No eye pain. No eye discharge. ENT: No runny nose. No epistaxis. No sinus pain. No sore throat. No odynophagia. No congestion. RESPIRATORY: No cough, no congestion. No hemoptysis. No shortness of breath. CARDIOVASCULAR: No angina symptoms. No CHF symptoms. No atypical chest pain for CAD. No palpitations. No PND. No orthopnea. GASTROINTESTINAL: No abdominal pain. No nausea or vomiting. No diarrhea or constipation. No hematemesis. No hematochezia. GENITOURINARY: No urgency. No frequency. No dysuria. No hematuria. No obstructive symptoms. No discharge. No pain. No significant abnormal bleeding. MUSCULOSKELETAL: No musculoskeletal pain; no joint swelling. NEUROLOGICAL: No headache. No neck pain. No syncope. No seizures. No dizziness. PSYCHIATRIC: Not anxious. No depression. No suicidal thoughts. No homicidal thoughts. SKIN: No rash. No lesions. No wounds. ENDOCRINE: No unexplained weight loss. No weight gain. HEMATOLOGIC/LYMPHATIC: No anemia. No purpura. No petechiae. No prolonged or excessive bleeding. No palpable lymph nodes. PHYSICAL EXAMINATION: VITAL SIGNS: Temperature 97.7, pulse 60, respiratory rate 16, blood pressure 160/60, pulse ox 97% on room air. HEENT: Head normocephalic, atraumatic. Eyes: Extraocular muscles are intact. Pupils are equal, round and reactive to light and accommodation. Ears: No lesions. Nose appeared normal. Throat: No exudate or erythema. NECK: Supple. No JVD, no carotid bruit. No lymphadenopathy or thyromegaly. LUNGS: Clear to auscultation. Percussion note normal. Chest symmetrical. HEART: S1, S2, no S3. No murmurs. No cyanosis or clubbing. No ascites. Pulses: Dorsalis pedis and posterior tibial pulses +1 to +2 bilaterally. ABDOMEN: Soft. Nontender. Bowel sounds active. No CVA tenderness. No mass felt. EXTREMITIES: No edema. Full range of motion of all extremities, equal. NEUROLOGIC: No focal deficit. Cranial nerves II through XII are grossly intact. No headache. No double vision. SKIN: Not dry. Intact. Turgor - normal. LYMPHATIC: No palpable lymph nodes/no lymphedema. MUSCULOSKELETAL: Normal joints with no swelling. Muscle tone is normal. LABS: Hemoglobin 12.4, hematocrit 38, WBC 6,600, normal differential. Creatinine 0.9, BUN 25, potassium 4.6. T4, TSH normal. ASSESSMENT: 1. Palpitation - no evidence of any tachyarrhythmias by telemetry. 2. Severe hypertension seems to be more or less under control. 3. No evidence of any angina type of symptoms. Cardiac markers are all negative with EKGs, no acute change except for sinus rhythm with LVH. PLAN: 1. Discharge the patient home on Cardizem 60 mg p.o. b.i.d. 2. Coated aspirin one a day. 3. Advised to discontinue Naprosyn. 4. Advised to continue Statin and other medications as before. 5. Tylenol for pain. CONDITION: Stable. TIME SPENT: More than 30 minutes. Plan and coordination of the patient's care discussed in the presence of nurse. JOSHUA
== END 2020-10-23 16:31 | disposition home or self-care (01) | DRG 305 ==
LOC: ED 12:08 → MEDSURG A 12:08 → OBSVTOIN 15:30 → MEDSURG A 15:48
PROVIDERS: ADMIT Internal Medicine; ATTEND Internal Medicine
DX: I16.1 Hypertensive emergency; I49.9 Cardiac arrhythmia, unspecified; R00.0 Tachycardia, unspecified; R00.2 Palpitations; E78.5 Hyperlipidemia, unspecified; R06.02 Shortness of breath; R07.89 Other chest pain; Z20.822 Contact with and (suspected) exposure to COVID-19

== ENCOUNTER 2020-11-04 09:56 | Inpatient (IN) ==
[2020-11-04] MEDS ORDERED: SODIUM CHLORIDE 1,000 ML IV STA ×2 (11:03→13:16)
--- NOTE | 2020-11-04 11:08 | ED.PDOC ---
General ED Provider: Dr. RASHID KIM MD Chief Complaint: Fever Stated Complaint: weak Time Seen by Provider: 11/04/20 10:52 Mode of Arrival: Wheelchair Information Source: Patient Primary Care Provider: ALEAH MCKINNEY Nursing and Triage Documentation Reviewed and Agree: Yes Does patient meet sepsis criteria?: No System Inflammatory Response Syndrome: Not Applicable Sepsis Protocol: For patient's 13 years and over: Temp is 96.8 and below OR 101 and greater Pulse >90 BPM Resp >20/minute Acutely Altered Mental Status Are patient's symptoms suggestive of a new infection, such as: -Pneumonia -Skin, Soft Tissue -Endocarditis -UTI -Bone, Joint Infection -Implantable Device -Acute Abdominal Infection -Wound Infection -Meningitis -Blood Stream Catheter Infection -Unknown Miscellaneous Complaint Exam Febrile Illness/Adult Complaint/Exam Onset/Duration: feverish and general weakness for one day Symptoms Are: Still present Timing: Intermittent Initial Severity: Moderate Current Severity: Mild Associated Signs and Symptoms: Reports Short of air; Denies Headache Review of Systems Review Of Systems Constitutional: Reports Fever and Malaise Eyes: Reports No symptoms Ears, Nose, Mouth, Throat: Reports No symptoms; Denies Throat pain Respiratory: Reports Short of air; Denies Cough Cardiac: Denies Chest pain GI: Reports No symptoms Musculoskeletal: Denies Joint swelling and Neck pain Skin: Denies Lesions Neurological: Denies Cognitive dysfunction and Headache All Other Systems: Other [facility] Medical History (Updated 11/04/20 @ 12:58 by RASHID KIM MD) Detached retina, left GERD (gastroesophageal reflux disease) Hypercholesteremia Hyperglycemia Hypertension Melanoma Family History (Updated 10/21/20 @ 16:03 by BRIJESH AGUILAR RN) Other No known health problems Social History (Updated 10/21/20 @ 16:03 by BRIJESH AGUILAR, RUBINA) Smoking and tobacco status: Former smoker Surgical History (Updated 10/22/20 @ 08:11 by SARAH ROY) History of bladder suspension procedure History of section History of esophageal surgery Status post appendectomy Status post hysterectomy Female Reproductive History Menstrual Hx Hysterectomy: No Physical Exam Physical Exam Appearance: Reports Well-appearing Ill-appearing: Not Applicable Pain Distress: Not Applicable Eyes: Reports ROSY and EOMI ENT: Reports Oropharynx normal Neck: Supple Respiratory: Reports Airway patent and Breath sounds clear Cardiovascular: Reports RRR GI/: Reports Soft and Other (no rebound); Denies Tender Musculoskeletal: Reports ROM intact Skin: Reports Warm and Dry Neurological: Reports Alert and Oriented Psychiatric: Reports Affect appropriate Interpretation Radiology Interpretation Radiology Interpretation By: Radiologist Exam Interpreted: CXR Xray Comments: nap EKG Interpretation Time of EKG #1: 12:56 Rate: Normal Rhythm: Sinus Interpretation: lvh, no stemi Re-Evaluation Re-Evaluation Time of Re-Evaluation: 12:57 Status: Improved Vital Signs Stable: Yes Appearance: NAD Lungs: Clear Skin: Warm and Dry Neuro: Alert and Oriented X3 CV: RRR Critical Care Note Critical Care Note Total Critical Care Time (mins): 0 Course Course Hematology/Chemistry: 11/04/20 11:21 11/04/20 11:21 Orders, Labs, Meds: Lab Review 11/04/20 11/04/20 11/04/20 11:21 11:21 11:21 WBC 8.03 RBC 4.56 Hgb 13.3 Hct 39.9 MCV 87.5 MCH 29.2 MCHC 33.3 RDW Coeff of Eulalia 15.0 H Plt Count 215 Immature Gran % (Auto) 2.0 Neut % (Auto) 66.6 Lymph % (Auto) 22.4 [place] % (Auto) 7.8 Eos % (Auto) 0.6 Baso % (Auto) 0.6 Neut # (Auto) 5.3 Lymph # (Auto) 1.8 [place] # (Auto) 0.6 Eos # (Auto) 0.1 Baso # (Auto) 0.1 Immature Gran # (Auto) 0.2 Sodium 137.2 Potassium 3.84 Chloride 101.4 Carbon Dioxide 28.4 Anion Gap 11.24 BUN 15.2 Creatinine 0.91 Estimated GFR (MDRD) 59.00 BUN/Creatinine Ratio 16.70 Glucose 107.9 H Lactic Acid 1.03 Calcium 9.03 Total Bilirubin 0.74 AST 23.2 ALT 11.2 Alkaline Phosphatase 77.8 Troponin I < 0.012 Total Protein 7.29 Albumin 4.26 Globulin 3.03 Albumin/Globulin Ratio 1.40 Urine Color Urine Clarity Urine pH Ur Specific [place] Urine Protein Urine Glucose (UA) Urine Ketones Urine Blood Urine Nitrite Urine Bilirubin Urine Urobilinogen Ur Leukocyte Esterase Urine Microscopic RBC Urine Microscopic WBC Ur Squamous Epith Cells Urine Mucus 11/04/20 12:24 WBC RBC Hgb Hct MCV MCH MCHC RDW Coeff of Eulalia Plt Count Immature Gran % (Auto) Neut % (Auto) Lymph % (Auto) [place] % (Auto) Eos % (Auto) Baso % (Auto) Neut # (Auto) Lymph # (Auto) [place] # (Auto) Eos # (Auto) Baso # (Auto) Immature Gran # (Auto) Sodium Potassium Chloride Carbon Dioxide Anion Gap BUN Creatinine Estimated GFR (MDRD) BUN/Creatinine Ratio Glucose Lactic Acid Calcium Total Bilirubin AST ALT Alkaline Phosphatase Troponin I Total Protein Albumin Globulin Albumin/Globulin Ratio Urine Color Yellow Urine Clarity Clear Urine pH 6.0 Ur Specific [place] 1.020 Urine Protein 1+ H Urine Glucose (UA) Negative Urine Ketones Trace H Urine Blood Trace-lysed Urine Nitrite Negative Urine Bilirubin Negative Urine Urobilinogen 1.0 H Ur Leukocyte Esterase Trace H Urine Microscopic RBC 2-5 Urine Microscopic WBC 5-10 Ur Squamous Epith Cells Not present Urine Mucus 2+ Orders Category Date Time Status EKG-(ED ONLY) Stat CARDIO 11/04/20 11:03 Completed CBC W/ AUTO DIFF Stat LAB 11/04/20 11:21 Completed COMPREHENSIVE METABOLIC PANEL Stat LAB 11/04/20 11:21 Completed LACTIC ACID Stat LAB 11/04/20 11:21 Completed RESPIRATORY PANEL 2.1 (PCR) Stat LAB 11/04/20 12:12 Received TROPONIN I Stat LAB 11/04/20 11:21 Completed URINALYSIS C & S IF INDICATED Stat LAB 11/04/20 12:24 Completed URINE CULTURE Stat LAB 11/04/20 12:24 Received Sodium Chloride 0.9% [Sodium Chloride] 1,000 ml MEDS 11/04/20 11:03 Discontinued IV BOLUS CHEST, 1V AP ONLY Stat RADS 11/04/20 11:03 Completed Medications Discontinued Medications Generic Name Dose Route Start Last Admin Trade Name Freq PRN Reason Stop Dose Admin Sodium Chloride 1,000 mls @ 1,000 mls/hr 11/04/20 11:03 11/04/20 11:32 Sodium Chloride IV 11/04/20 12:02 1,000 mls/hr BOLUS STA Administration Vital Signs: Temp Pulse Resp BP Pulse Ox 11/04/20 09:56 98.0 F 88 20 108/68 94 L Discharge Plan Discharge Patient Disposition: PLACED OBSERVATION Discharge Problem: Fever Prescriptions: No Action atorvastatin 20 MG tablet 20 mg PO DAILY RF: 0 tramadol 50 MG tablet 50 mg PO BID RF: 0 ropinirole 0.25 mg tablet 0.25 mg PO BEDTIME RF: 0 aspirin [Aspirin Low Dose] 81 mg Tablet,Delayed Release (Dr/Ec) 81 mg PO DAILY Qty: 30 RF: 5 diltiazem HCl [Cardizem] 60 mg Tablet 60 mg PO Q12HR Qty: 60 RF: 1 acetaminophen [Tylenol] 325 mg Tablet 650 mg PO TID PRN (Reason: Pain) Qty: 60 RF: 5 ED Provider: RASHID KIM Condition: Stable Physician Progress Note: []treatment and disposition d/w Dr Mckinney, admit to tele obs for dehydration
[2020-11-04 11:26] LABS: BASOPHILS # (AUTO) 0.1 K/uL (0-0.2); BASOPHILS % (AUTO) 0.6 % (0.0-3.0); EOSINOPHILS # (AUTO) 0.1 K/ul (0.0-0.7); EOSINOPHILS % (AUTO) 0.6 % (0.0-7.0); HEMATOCRIT 39.9 % (37.0-47.0); HEMOGLOBIN 13.3 g/dl (12.0-16.0); IMMATURE GRANULOCYTE # (AUTO) 0.2 (0.0-1.0); LYMPHOCYTES # (AUTO) 1.8 K/uL (0.60-3.4); LYMPHOCYTES % (AUTO) 22.4 (10.0-50.0); MEAN CORPUSCULAR HEMOGLOBIN 29.2 pg (27.0-31.0); MEAN CORPUSCULAR HGB CONC 33.3 (31.8-35.4); MEAN CORPUSCULAR VOLUME 87.5 fl (81.0-99.0); MONOCYTES # (AUTO) 0.6 K/uL (0.4-2.0); MONOCYTES % (AUTO) 7.8 (0-10); NEUTROPHILS # (AUTO) 5.3 K/ul (2.0-6.9); NEUTROPHILS % (AUTO) 66.6 % (42.2-75.2); PLATELET COUNT 215 10^3/uL (140-440); RED BLOOD COUNT 4.56 10^6/ul (4.20-5.40); WHITE BLOOD COUNT 8.03 K/ul (4.6-10.2)
--- NOTE | 2020-11-04 11:33 | DI ---
EXAM: Chest one view, frontal view only. HISTORY: Weakness. COMPARISON: 10/21/2020. FINDINGS: The heart size is at the upper limits of normal. Atherosclerotic calcifications are prese nt. There is no pulmonary vascular congestion. The lungs are clear save for calcified granulomatous changes. No pleural effusion or pneumothorax is seen. No acute osseous abnormality is identified. Since the prior study, there has been n significant interval change. IMPRESSION: No acute cardiopulmonary process.
[2020-11-04 11:40] LABS: ALANINE AMINOTRANSFERASE 11.2 U/L (0-35); ALBUMIN 4.26 g/dL (3.5-5.0); ALKALINE PHOSPHATASE 77.8 U/L (53-141); ASPARTATE AMINO TRANSFERASE 23.2 U/L (14-36); BILIRUBIN,TOTAL 0.74 mg/dL (0.2-1.3); BLOOD UREA NITROGEN 15.2 mg/dL (7-17); CALCIUM 9.03 mg/dL (8.4-10.2); CARBON DIOXIDE 28.4 mmol/L (22-30.0); CHLORIDE 101.4 mmol/L (98-107); CREATININE 0.91 mg/dL (0.60-1.30); GLUCOSE 107.9 mg/dL (74-106); POTASSIUM 3.84 mmol/L (3.5-5.1); SODIUM 137.2 mmol/L (134.5-145); TOTAL PROTEIN 7.29 g/dL (6.3-8.2)
[2020-11-04 11:52] LABS: TROPONIN I < 0.012 ng/ml (0.0000-0.120)
[2020-11-04 12:19] LABS: BORDETELLA PARAPERTUSSIS (PCR) NOT DETECTED (NOT DETECT); BORDETELLA PERTUSSIS (PCR) NOT DETECTED (NOT DETECT); CHLAMYDIA PNEUMONIAE (PCR) NOT DETECTED (NOT DETECT); CORONAVIRUS 229E (PCR) NOT DETECTED (NOT DETECT); CORONAVIRUS HKU1 (PCR) NOT DETECTED (NOT DETECT); CORONAVIRUS NL63 (PCR) NOT DETECTED (NOT DETECT); CORONAVIRUS OC43 (PCR) NOT DETECTED (NOT DETECT); HUMAN METAPNEUMOVIRUS (PCR) NOT DETECTED (NOT DETECT); HUMAN RHINOVIRUS/ENTEROV (PCR) NOT DETECTED (NOT DETECT); INFLUENZA B (PCR) NOT DETECTED (NOT DETECT); MYCOPLASMA PNEUMONIAE (PCR) NOT DETECTED (NOT DETECT); PARAINFLUENZA VIRUS 1 (PCR) NOT DETECTED (NOT DETECT); PARAINFLUENZA VIRUS 2 (PCR) NOT DETECTED (NOT DETECT); PARAINFLUENZA VIRUS 3 (PCR) NOT DETECTED (NOT DETECT); PARAINFLUENZA VIRUS 4 (PCR) NOT DETECTED (NOT DETECT); RESPIRATORY SYNCYTIAL V (PCR) NOT DETECTED (NOT DETECT); SARS_COV_2 (PCR) NOT DETECTED (NOT DETECT)
[2020-11-04 12:37] LABS: BILIRUBIN,URINE Negative (NEGATIVE); CLARITY,URINE Clear (CLEAR); COLOR,URINE Yellow (YELLOW); GLUCOSE, URINE (UA) Negative (NEGATIVE); KETONES,URINE Trace (NEGATIVE); LEUKOCYTE ESTERASE ,URINE Trace (NEGATIVE); NITRITE,URINE Negative (NEGATIVE); PROTEIN,URINE 1+ (NEGATIVE); URINE, BLOOD Trace-lysed (NEGATIVE)
[2020-11-04 12:44] LABS: SQUAMOUS EPITHELIAL CELL,UR NOT PRESENT (0-5)
[2020-11-04 12:45] LABS: MUCUS,URINE 2+ (NOT PRESENT)
[2020-11-04 13:08] LABS: ADENOVIRUS (PCR) NOT DETECTED (NOT DETECT)
[2020-11-04] MEDS ORDERED: NITROSTAT SL PRN (14:17)
[2020-11-04] MEDS ORDERED: ATROPINE SULFATE PFS IVP PRN (14:17)
[2020-11-04] MEDS ORDERED: TYLENOL PO PRN (14:19)
[2020-11-04 15:11] LABS: CREATINE KINASE 20.5 U/L (30-135)
[2020-11-04 15:16] VITALS: BMI 25.5
[2020-11-04 15:28] LABS: TROPONIN I < 0.012 ng/ml (0.0000-0.120)
[2020-11-04] MEDS ORDERED: ROCEPHIN 1 GM/50 ML D5W 1 GM/50 ML BAG IV SCH (15:30)
[2020-11-04] MEDS: SODIUM CHLORIDE 1,000 ML IV SCH ×2 (16:35→18:38)
[2020-11-04 17:11] LABS: BILIRUBIN,URINE Negative (NEGATIVE); CLARITY,URINE Slightly (CLEAR); COLOR,URINE Yellow (YELLOW); GLUCOSE, URINE (UA) Negative (NEGATIVE); KETONES,URINE 1+ (NEGATIVE); LEUKOCYTE ESTERASE ,URINE Trace (NEGATIVE); NITRITE,URINE Negative (NEGATIVE); PH,URINE 6.5 (5-9); PROTEIN,URINE Negative (NEGATIVE); URINE, BLOOD Trace-intact (NEGATIVE)
[2020-11-04 17:17] LABS: BACTERIA,URINE TRACE (NOT PRESENT); MUCUS,URINE TRACE (NOT PRESENT)
[2020-11-04] MEDS: CARDIZEM PO SCH (20:44)
[2020-11-04] MEDS: TYLENOL PO PRN (22:08)
[2020-11-04 22:55] LABS: CREATINE KINASE 31.5 U/L (30-135)
[2020-11-04 23:08] LABS: TROPONIN I < 0.012 ng/ml (0.0000-0.120)
[2020-11-05] MEDS: SODIUM CHLORIDE 1,000 ML IV SCH ×7 (01:13→16:22)
[2020-11-05 05:48] LABS: BASOPHILS % (AUTO) 0.5 % (0.0-3.0); EOSINOPHILS # (AUTO) 0.1 K/ul (0.0-0.7); EOSINOPHILS % (AUTO) 1.2 % (0.0-7.0); HEMATOCRIT 34.7 % (37.0-47.0); HEMOGLOBIN 11.4 g/dl (12.0-16.0); IMMATURE GRANULOCYTE # (AUTO) 0.1 (0.0-1.0); LYMPHOCYTES # (AUTO) 1.2 K/uL (0.60-3.4); LYMPHOCYTES % (AUTO) 20.7 (10.0-50.0); MEAN CORPUSCULAR HEMOGLOBIN 28.9 pg (27.0-31.0); MEAN CORPUSCULAR HGB CONC 32.9 (31.8-35.4); MEAN CORPUSCULAR VOLUME 88.1 fl (81.0-99.0); MONOCYTES # (AUTO) 0.5 K/uL (0.4-2.0); MONOCYTES % (AUTO) 7.8 (0-10); NEUTROPHILS % (AUTO) 67.8 % (42.2-75.2); PLATELET COUNT 178 10^3/uL (140-440); RDW COEFFICIENT OF VARIATION 14.8 % (11.6-14.8); RED BLOOD COUNT 3.94 10^6/ul (4.20-5.40); WHITE BLOOD COUNT 5.93 K/ul (4.6-10.2)
[2020-11-05 06:00] LABS: ALANINE AMINOTRANSFERASE 10.4 U/L (0-35); ALBUMIN 3.47 g/dL (3.5-5.0); ALKALINE PHOSPHATASE 60.2 U/L (53-141); ASPARTATE AMINO TRANSFERASE 20.1 U/L (14-36); BILIRUBIN,TOTAL 0.58 mg/dL (0.2-1.3); BLOOD UREA NITROGEN 10.2 mg/dL (7-17); CALCIUM 8.22 mg/dL (8.4-10.2); CARBON DIOXIDE 27.2 mmol/L (22-30.0); CHLORIDE 107.1 mmol/L (98-107); CREATININE 0.7 mg/dL (0.60-1.30); GLUCOSE 94.7 mg/dL (74-106); POTASSIUM 3.52 mmol/L (3.5-5.1); SODIUM 140.5 mmol/L (134.5-145); TOTAL PROTEIN 6.09 g/dL (6.3-8.2)
[2020-11-05] MEDS: ULTRAM PO SCH ×2 (09:00→20:33)
[2020-11-05] MEDS: ASPIRIN EC PO SCH (09:00)
[2020-11-05] MEDS: CARDIZEM PO SCH ×2 (09:01→20:33)
[2020-11-05] MEDS: VANCOMYCIN 1 GM in SODIUM CHLORIDE 250 ML IV SCH ×2 (09:27→20:33)
[2020-11-05 09:51] LABS: ERYTHROCYTE SEDIMENTATION RATE 60 mm/hr (0-20)
--- NOTE | 2020-11-05 09:52 | PCM.PROG ---
Attending Provider: ATTENDING PROVIDER: Dr. ALEAH SALES This patient is seen with Jayla Velasquez, Nurse Practitioner. DATE OF SERVICE: 11/05/20 SUBJECTIVE: This 84 year old /WHITE F was hospitalized 11/04/20. Resting comfortably in bed. She had fever last night is returning this morning. She is complaining of chills and achiness. Chest x-ray is normal. Respiratory panel normal. No blood cultures done in ER. REVIEW OF SYSTEMS: CONSTITUTIONAL: Weakness. Fever, chills. No night sweats. No fatigue, malaise, lethargy. HEENT: Eyes: No visual changes. No eye pain. No eye discharge. ENT: No runny nose. No epistaxis. No sinus pain. No odynophagia. No congestion. RESPIRATORY: No cough, no congestion. No hemoptysis. No shortness of breath. CARDIOVASCULAR: No angina symptoms. No CHF symptoms. No atypical chest pain for CAD. No palpitations. No orthopnea.. GASTROINTESTINAL: Decreased appetite. No abdominal pain. No nausea or vomiting. No diarrhea or constipation. No hematemesis. No hematochezia. GENITOURINARY: No urgency. No frequency. No dysuria. No hematuria. No obstructive symptoms. No discharge. No pain. No significant abnormal bleeding. MUSCULOSKELETAL: Myalgia. No musculoskeletal pain; no joint swelling. NEUROLOGICAL: Awake, alert, oriented to time, place and person. No headache. No neck pain. No syncope. No seizures. No dizziness. PSYCHIATRIC: Not anxious. No depression. No suicidal thoughts. No homicidal thoughts. SKIN: No rash. No lesions. No wounds. ENDOCRINE: No unexplained weight loss. No weight gain. HEMATOLOGIC/LYMPHATIC: No anemia. No purpura. No petechiae. No prolonged or excessive bleeding. No palpable lymph nodes. PHYSICAL EXAMINATION: GENERAL: The patient is awake, alert and oriented, lying/sitting in bed in no distress. VITAL SIGNS: Temperature 99 F, Pulse 70, Respiratory Rate 20, BP 135/62, Pulse Ox 99% HEENT: Head normocephalic, atraumatic. Eyes: Extraocular muscles are intact. Pupils are equal, round and reactive to light and accommodation. Ears: No lesions. Nose appeared normal. Throat: No exudate or erythema. NECK: Supple. No JVD, no carotid bruit. No lymphadenopathy or thyromegaly. LUNGS: Diminished breath sounds. Clear to auscultation. Percussion note normal. Chest symmetrical. HEART: S1, S2, no S3. No murmurs. No cyanosis or clubbing. No ascites. Pulses: Dorsalis pedis and posterior tibial pulses +1 to +2 both sides. ABDOMEN: Soft. Non-tender. Bowel sounds active. No CVA tenderness. No mass felt. EXTREMITIES: No edema. Full range of motion of all extremities, equal. NEUROLOGIC: No focal deficit. Cranial nerves II through XII are grossly intact. No headache. No double vision. SKIN: Not dry. Intact. Turgor-normal. LYMPHATIC: No palpable lymph nodes/no lymphedema. MUSCULOSKELETAL: Normal joints with no swelling. Muscle tone is normal. LAB REVIEW: 11/05/20 05:45 11/05/20 05:45 11/05/20 05:45: Sodium 140.5, Potassium 3.52, Chloride 107.1 H, Carbon Dioxide 27.2, Anion Gap 9.72, BUN 10.2, Creatinine 0.70, Estimated GFR (MDRD) 80.00, BUN/Creatinine Ratio 14.57, Glucose 94.7, Calcium 8.22 L, Total Bilirubin 0.58, AST 20.1, ALT 10.4, Alkaline Phosphatase 60.2, Total Protein 6.09 L, Albumin 3.47 L, Globulin 2.62, Albumin/Globulin Ratio 1.32 11/05/20 05:45: WBC 5.93, RBC 3.94 L, Hgb 11.4 L, Hct 34.7 L, MCV 88.1, MCH 28.9, MCHC 32.9, RDW Coeff of Eulalia 14.8, Plt Count 178, Immature Gran % (Auto) 2.0, Neut % (Auto) 67.8, Lymph % (Auto) 20.7, [place] % (Auto) 7.8, Eos % (Auto) 1.2, Baso % (Auto) 0.5, Neut # (Auto) 4.0, Lymph # (Auto) 1.2, [place] # (Auto) 0.5, Eos # (Auto) 0.1, Baso # (Auto) 0.0, Immature Gran # (Auto) 0.1 11/04/20 22:41: Total Creatine Kinase 31.5, Troponin I < 0.012 11/04/20 16:45: Urine Color Yellow, Urine Clarity Slightly, Urine pH 6.5, Ur Specific [place] 1.025, Urine Protein Negative, Urine Glucose (UA) Negative, Urine Ketones 1+ H, Urine Blood Trace-intact H, Urine Nitrite Negative, Urine Bilirubin Negative, Urine Urobilinogen 1.0 H, Ur Leukocyte Esterase Trace H, Urine Microscopic RBC 5-10, Urine Microscopic WBC 10-20, Ur Squamous Epith Cells 5-10, Urine Bacteria Trace, Urine Mucus Trace 11/04/20 14:50: Total Creatine Kinase 20.5 L, Troponin I < 0.012 11/04/20 12:24: Urine Color Yellow, Urine Clarity Clear, Urine pH 6.0, Ur Specific [place] 1.020, Urine Protein 1+ H, Urine Glucose (UA) Negative, Urine Ketones Trace H, Urine Blood Trace-lysed, Urine Nitrite Negative, Urine Bilirubin Negative, Urine Urobilinogen 1.0 H, Ur Leukocyte Esterase Trace H, Urine Microscopic RBC 2-5, Urine Microscopic WBC 5-10, Ur Squamous Epith Cells Not present, Urine Mucus 2+ 11/04/20 12:12: Adenovirus (PCR) Not detected, B. pertussis DNA (PCR) Not detected, B.parapertussis DNA PCR Not detected, C. pneumoniae DNA (PCR) Not detected, Coronavirus OC43 (PCR) Not detected, Coronavirus HKU1 (PCR) Not detected, Coronavirus 229E (PCR) Not detected, Coronavirus NL63 (PCR) Not detected, Human Metapneumovir PCR Not detected, Influenza Type A (PCR) Not detected, Influenza B (RT-PCR) Not detected, M. pneumoniae (PCR) Not detected, Parainfluenza 1 (PCR) Not detected, Parainfluenza 2 (PCR) Not detected, Parainfluenza 3 (PCR) Not detected, Parainfluenza 4 (PCR) Not detected, RSV (PCR) Not detected, Entero/Rhino (PCR) Not detected, SARS-CoV-2 (PCR) Not detected 11/04/20 11:21: Lactic Acid 1.03 11/04/20 11:21: Sodium 137.2, Potassium 3.84, Chloride 101.4, Carbon Dioxide 28.4, Anion Gap 11.24, BUN 15.2, Creatinine 0.91, Estimated GFR (MDRD) 59.00, BUN/Creatinine Ratio 16.70, Glucose 107.9 H, Calcium 9.03, Total Bilirubin 0.74, AST 23.2, ALT 11.2, Alkaline Phosphatase 77.8, Troponin I < 0.012, Total Protein 7.29, Albumin 4.26, Globulin 3.03, Albumin/Globulin Ratio 1.40 11/04/20 11:21: WBC 8.03, RBC 4.56, Hgb 13.3, Hct 39.9, MCV 87.5, MCH 29.2, MCHC 33.3, RDW Coeff of Eulalia 15.0 H, Plt Count 215, Immature Gran % (Auto) 2.0, Neut % (Auto) 66.6, Lymph % (Auto) 22.4, [place] % (Auto) 7.8, Eos % (Auto) 0.6, Baso % (Auto) 0.6, Neut # (Auto) 5.3, Lymph # (Auto) 1.8, [place] # (Auto) 0.6, Eos # (Auto) 0.1, Baso # (Auto) 0.1, Immature Gran # (Auto) 0.2 ASSESSMENT: Please see below. 1. Urinary tract infection. 2. Fever. 3. Dehydration. PLAN: 1. Decrease fluids to 50 ML/hr. 2. Zofran 4 mg IV q.6 p.rn. for nausea. 3. Blood cultures times two. 4. D/C Rocephin, change to Zosyn - pharmacy to dose. 5. Tylenol for fever. Plan and coordination of the patient's care discussed in the presence of [place] [employer] and nurse. CONDITION: Stable SCRIBED BY: Felipe HAMMERist scribed while in presence of service performed by Dr. Sales/Jayla Velasquez APRN on 11/05/20 ([id number])
[2020-11-05] MEDS: DOXYCYCLINE HYCLATE PO SCH ×2 (11:44→20:33)
--- NOTE | 2020-11-05 12:41 | PN ---
DATE OF SERVICE: 11/04/2020 SUBJECTIVE: The patient was seen and examined in the emergency room. The patient was hospitalized with having chills and feeling really fatigue and weak. All day yesterday she laid around practically nothing to eat except for one sandwich. In the morning she is not feeling any better. Complete physical exam had practically negative findings except for the patient's skin turgor is poor and looks pale. U/A somewhat abnormal could be urinary tract infection. Recently the patient was hospitalized with chest pain and hypertension. Coronary artery disease was negative. This patient is going to be hospitalized with IV fluids, IV antibiotics and routine telemetry orders with serial EKG's, cardiac markers. The patient's history of physical was done with Nurse Practitioner. TIME SPENT: More than 30 minutes. Plan and coordination of the patient's care discussed in the presence of nurse. JOSHUA
--- NOTE | 2020-11-05 14:31 | CT ---
EXAM: CT abdomen with and without contrast. CT pelvis with and without contrast. HISTORY: Abdominal pain. Fever. Decreased appetite. COMPARISON: No prior abdominal CT. Pelvic CT 03/16. TECHNIQUE: Multiple axial images of the abdomen and pelvis were obtained prior to and following intr avenous administration of Omnipaque 350, low osmolar. Contrast volume was not reported by the techno logist. Images reformatted in the sagittal and coronal plane. FINDINGS: No acute abnormality in the lung bases. Degenerative changes present in the spine. Tarlov cysts in the sacrum. Liver, pancreas, spleen, adrenal glands are normal. Calcified stones within a contracted gallbladder . There is homogeneous fluid density left renal masses measure up to 5.4 cm maximum diameter. No ca lcified renal stones or hydronephrosis. Suspect previous fundoplication. Small hiatal hernia noted. There is no bowel obstruction. Diverti culosis present. Index not seen. Uterus absent. Bladder collapsed. No free fluid, free air or lymphadenopathy identified. Atherosclerotic calcifications present. There is no aneurysm. IMPRESSION: 1. No acute abnormality in the abdomen or pelvis. 2. Small hiatal hernia. Suspect previous fundoplication. 3. Diverticulosis. 4. Left renal cysts. 5. Atherosclerosis. All CT scans are performed using dose optimization techniques as appropriate to the performed exam an d include at least one of the following: Automated exposure control, adjustment of the mA and/or kV according t o size, and the use of iterative reconstruction technique.
[2020-11-05] MEDS: TYLENOL PO PRN (15:46)
[2020-11-05] MEDS: REQUIP PO SCH (20:33)
[2020-11-06 05:33] LABS: BASOPHILS % (AUTO) 0.5 % (0.0-3.0); EOSINOPHILS # (AUTO) 0.1 K/ul (0.0-0.7); EOSINOPHILS % (AUTO) 1.6 % (0.0-7.0); HEMATOCRIT 32.9 % (37.0-47.0); HEMOGLOBIN 10.7 g/dl (12.0-16.0); IMMATURE GRANULOCYTE # (AUTO) 0.1 (0.0-1.0); IMMATURE GRANULOCYTE % (AUTO) 1.4 % (0.0-5.0); LYMPHOCYTES # (AUTO) 1.3 K/uL (0.60-3.4); LYMPHOCYTES % (AUTO) 20.1 (10.0-50.0); MEAN CORPUSCULAR HEMOGLOBIN 28.2 pg (27.0-31.0); MEAN CORPUSCULAR HGB CONC 32.5 (31.8-35.4); MEAN CORPUSCULAR VOLUME 86.6 fl (81.0-99.0); MONOCYTES # (AUTO) 0.4 K/uL (0.4-2.0); MONOCYTES % (AUTO) 6.4 (0-10); NEUTROPHILS # (AUTO) 4.5 K/ul (2.0-6.9); PLATELET COUNT 183 10^3/uL (140-440); RDW COEFFICIENT OF VARIATION 14.7 % (11.6-14.8); WHITE BLOOD COUNT 6.42 K/ul (4.6-10.2)
[2020-11-06 05:53] LABS: ALBUMIN 3.45 g/dL (3.5-5.0); ALKALINE PHOSPHATASE 61.5 U/L (53-141); ASPARTATE AMINO TRANSFERASE 31.9 U/L (14-36); BILIRUBIN,TOTAL 0.42 mg/dL (0.2-1.3); BLOOD UREA NITROGEN 9.5 mg/dL (7-17); CALCIUM 8.4 mg/dL (8.4-10.2); CARBON DIOXIDE 28.4 mmol/L (22-30.0); CHLORIDE 103.6 mmol/L (98-107); CREATININE 0.59 mg/dL (0.60-1.30); GLUCOSE 96.8 mg/dL (74-106); POTASSIUM 3.46 mmol/L (3.5-5.1); TOTAL PROTEIN 6.16 g/dL (6.3-8.2)
[2020-11-06] MEDS: MILK OF MAGNESIA PO PRN (08:46)
[2020-11-06] MEDS: DOXYCYCLINE HYCLATE PO SCH ×2 (08:47→20:50)
[2020-11-06] MEDS: ASPIRIN EC PO SCH (08:47)
[2020-11-06] MEDS: ULTRAM PO SCH ×2 (08:47→20:49)
[2020-11-06] MEDS: CARDIZEM PO SCH ×2 (08:47→20:49)
[2020-11-06] MEDS: VANCOMYCIN 1 GM in SODIUM CHLORIDE 250 ML IV SCH (08:49)
--- NOTE | 2020-11-06 08:57 | HP ---
DATE OF SERVICE: 11/04/20 HISTORY OF PRESENT ILLNESS: This is an 84-year-old white female who presents to the emergency room complaining of fever and weakness for the past several days. She had no other complaints other than myalgias, chills. She denies any kind of cough. 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 Noguera at [place] Detached retina of the left eye on 03/[address] Bahena in [place] Chronic leg edema PAST SURGICAL HISTORY: Hiatal hernia surgery REVIEW OF SYSTEMS: CONSTITUTIONAL: Positive for fever, weakness and achiness. No night sweats. No fatigue, malaise, lethargy. No chills. HEENT: Eyes: No visual changes. No eye pain. No eye discharge. ENT: No runny nose. No epistaxis. No sinus pain. No sore throat. No odynophagia. No ear pain. No congestion. RESPIRATORY: No cough, no congestion. No hemoptysis. No shortness of breath. CARDIOVASCULAR: No angina symptoms. No CHF symptoms. No atypical chest pain for CAD. No palpitations. No PND. No orthopnea. GASTROINTESTINAL: No abdominal pain. No nausea or vomiting. No diarrhea or constipation. No hematemesis. No hematochezia. GENITOURINARY: No urgency. No frequency. No dysuria. No hematuria. No obstructive symptoms. No discharge. No pain. No significant abnormal bleeding. MUSCULOSKELETAL: No musculoskeletal pain. No joint swelling. No arthritis. NEUROLOGICAL: No headache. No neck pain. No syncope. No seizures. No dizziness. PSYCHIATRIC: Not anxious. No depression. No suicidal thoughts. No homicidal thoughts. SKIN: No rash. No lesions. No wounds. ENDOCRINE: No unexplained weight loss. No weight gain. HEMATOLOGIC/LYMPHATIC: No anemia. No purpura. No petechiae. No prolonged or excessive bleeding. No palpable lymph nodes. PERSONAL/FAMILY/SOCIAL HISTORY: She is , lives at home by herself. Performs all ADLs. No alcohol or ilicit drug use. Nonsmoker. MEDICATIONS: Atorvastatin 20 mg p.o. daily Tramadol 50 mg p.o. b.i.d. Ropinirole 0.25 mg p.o. bedtime Dilitiazem 60 mg p.o.q.12hr Aspirin 81 mg p.o. daily Acetaminophen (Tylenol) 650 mg p.o. t.i.d. p.r.n. ALLERGIES: NKDA PHYSICAL EXAMINATION: GENERAL: Alert, oriented. Pale. VITAL SIGNS: Temperature 98, heart rate 88, respirations 20, blood pressure 108/68, pulse ox 94%. HEENT: Head normocephalic, atraumatic. Eyes: Extraocular muscles are intact. Pupils are equal, round and reactive to light and accommodation. Ears: No lesions. Nose appeared normal. Throat: No exudate or erythema. NECK: Supple. No JVD, no carotid bruit. No lymphadenopathy or thyromegaly. LUNGS: Diminished breath sounds. Clear to auscultation. Percussion note normal. Chest symmetrical. HEART: S1, S2, no S3. No murmur. No cyanosis or clubbing. No ascites. Pulses: Dorsalis pedis and posterior tibial pulses +1 to +2 bilaterally. ABDOMEN: Soft. Nontender. Bowel sounds active. No CVA tenderness. No mass felt. EXTREMITIES: No edema. Full range of motion of all extremities, equal. NEUROLOGIC: No focal deficit. Cranial nerves II through XII are grossly intact. No headache, no double vision or headache. SKIN: Not dry. Intact. Turgor - normal. LYMPHATIC: No palpable lymph nodes/no lymphedema. MUSCULOSKELETAL: Normal joints with no swelling. Muscle tone is normal. White count 8.03, hemoglobin 13.3, hematocrit 39.9, platelets 215. Sodium 137, potassium 3.8, BUN 15, creatinine 0.91, glucose 107. AST 23, ALT 11, alkaline phosphatase 77, lactic acid 1.03. Urine 1+ protein, 2+ mucus, trace ketones, trace blood, trace leuks. Chest x-ray shows no acute process. ASSESSMENT: 1. FEVER. 2. POSSIBLE UTI WITH URINE CULTURE PENDING 3. DEHYDRATION 4. GENERALIZED WEAKNESS PLAN: 1. We will admit. 2. Routine telemetry orders. 3. CBC, CMP daily. 4. Blood cultures times two. 5. Start Rocephin 1 gm IV daily. 6. Normal Saline IV at 125 cc/hr. 7. Urine for culture. 8. Respiratory panel by PCR is negative. 9. Continue home medications. 10. Will follow closely. TIME SPENT: More than 70 minutes. JOSHUA
[2020-11-06] MEDS: K-DUR PO SCH ×2 (11:44→17:14)
[2020-11-06] MEDS: AMPICILLIN SODIUM 2 GM in SODIUM CHLORIDE 100 ML IV SCH ×2 (11:44→17:14)
[2020-11-06] MEDS: SODIUM CHLORIDE 1,000 ML IV SCH (15:07)
[2020-11-06] MEDS: ZOFRAN 4 MG/2 ML IVP PRN (19:54)
[2020-11-06] MEDS: REQUIP PO SCH (20:49)
[2020-11-07 05:16] LABS: BASOPHILS % (AUTO) 0.4 % (0.0-3.0); EOSINOPHILS # (AUTO) 0.1 K/ul (0.0-0.7); EOSINOPHILS % (AUTO) 1.8 % (0.0-7.0); HEMATOCRIT 32.4 % (37.0-47.0); HEMOGLOBIN 10.7 g/dl (12.0-16.0); IMMATURE GRANULOCYTE # (AUTO) 0.1 (0.0-1.0); IMMATURE GRANULOCYTE % (AUTO) 0.9 % (0.0-5.0); LYMPHOCYTES # (AUTO) 1.4 K/uL (0.60-3.4); LYMPHOCYTES % (AUTO) 26.5 (10.0-50.0); MEAN CORPUSCULAR HEMOGLOBIN 28.8 pg (27.0-31.0); MEAN CORPUSCULAR VOLUME 87.3 fl (81.0-99.0); MONOCYTES # (AUTO) 0.3 K/uL (0.4-2.0); MONOCYTES % (AUTO) 6.3 (0-10); NEUTROPHILS # (AUTO) 3.5 K/ul (2.0-6.9); NEUTROPHILS % (AUTO) 64.1 % (42.2-75.2); PLATELET COUNT 194 10^3/uL (140-440); RDW COEFFICIENT OF VARIATION 14.8 % (11.6-14.8); RED BLOOD COUNT 3.71 10^6/ul (4.20-5.40); WHITE BLOOD COUNT 5.44 K/ul (4.6-10.2)
[2020-11-07 05:29] LABS: ALANINE AMINOTRANSFERASE 13.9 U/L (0-35); ALBUMIN 3.28 g/dL (3.5-5.0); ALKALINE PHOSPHATASE 60.1 U/L (53-141); ASPARTATE AMINO TRANSFERASE 27.4 U/L (14-36); BILIRUBIN,TOTAL 0.49 mg/dL (0.2-1.3); BLOOD UREA NITROGEN 9.1 mg/dL (7-17); CALCIUM 8.28 mg/dL (8.4-10.2); CARBON DIOXIDE 26.8 mmol/L (22-30.0); CHLORIDE 104.4 mmol/L (98-107); CREATININE 0.67 mg/dL (0.60-1.30); GLUCOSE 94.5 mg/dL (74-106); POTASSIUM 3.78 mmol/L (3.5-5.1); SODIUM 135.4 mmol/L (134.5-145); TOTAL PROTEIN 5.84 g/dL (6.3-8.2)
[2020-11-07] MEDS: AMPICILLIN SODIUM 2 GM in SODIUM CHLORIDE 100 ML IV SCH ×5 (05:39→18:18)
[2020-11-07] MEDS: K-DUR PO SCH ×2 (09:26→17:49)
[2020-11-07] MEDS: CARDIZEM PO SCH ×2 (09:26→20:16)
[2020-11-07] MEDS: ULTRAM PO SCH ×2 (09:26→20:17)
[2020-11-07] MEDS: ASPIRIN EC PO SCH (09:26)
[2020-11-07] MEDS: DOXYCYCLINE HYCLATE PO SCH ×2 (09:27→20:16)
[2020-11-07] MEDS: SODIUM CHLORIDE 1,000 ML IV SCH (09:29)
--- NOTE | 2020-11-07 09:52 | PCM.PROG ---
Attending Provider: ATTENDING PROVIDER: Dr. ALEAH SALES This patient is seen with Jayla Velasquez, Nurse Practitioner. DATE OF SERVICE: 11/07/20 SUBJECTIVE: This 84 year old /WHITE F was hospitalized 11/04/20. The patient is resting comfortably in bed. Positive Enterococcus in urine. She was started on Amoxicillin IV yesterday and is feeling some better. She did have a temperature last night. Blood culture negative thus far. REVIEW OF SYSTEMS: CONSTITUTIONAL: Weakness and fatigue. Fever. No night sweats. No malaise, lethargy. No chills. HEENT: Eyes: No visual changes. No eye pain. No eye discharge. ENT: No runny nose. No epistaxis. No sinus pain. No odynophagia. No congestion. RESPIRATORY: No cough, no congestion. No hemoptysis. No shortness of breath. CARDIOVASCULAR: No angina symptoms. No CHF symptoms. No atypical chest pain for CAD. No palpitations. No orthopnea.. GASTROINTESTINAL: No abdominal pain. No nausea or vomiting. No diarrhea or constipation. No hematemesis. No hematochezia. GENITOURINARY: No urgency. No frequency. No dysuria. No hematuria. No obstructive symptoms. No discharge. No pain. No significant abnormal bleeding. MUSCULOSKELETAL: No musculoskeletal pain; no joint swelling. NEUROLOGICAL: Awake, alert, oriented to time, place and person. No headache. No neck pain. No syncope. No seizures. No dizziness. PSYCHIATRIC: Not anxious. No depression. No suicidal thoughts. No homicidal thoughts. SKIN: No rash. No lesions. No wounds. ENDOCRINE: No unexplained weight loss. No weight gain. HEMATOLOGIC/LYMPHATIC: No anemia. No purpura. No petechiae. No prolonged or excessive bleeding. No palpable lymph nodes. PHYSICAL EXAMINATION: GENERAL: The patient is awake, alert and oriented, lying/sitting in bed in no distress. VITAL SIGNS: Temperature 97.9 F, Pulse 63, Respiratory Rate 18, BP 123/68, Pulse Ox 95% HEENT: Head normocephalic, atraumatic. Eyes: Extraocular muscles are intact. Pupils are equal, round and reactive to light and accommodation. Ears: No lesions. Nose appeared normal. Throat: No exudate or erythema. NECK: Supple. No JVD, no carotid bruit. No lymphadenopathy or thyromegaly. LUNGS: Diminished breath sounds. Clear to auscultation. Percussion note normal. Chest symmetrical. HEART: S1, S2, no S3. No murmurs. No cyanosis or clubbing. No ascites. Pulses: Dorsalis pedis and posterior tibial pulses +1 to +2 both sides. ABDOMEN: Soft. Non-tender. Bowel sounds active. No CVA tenderness. No mass felt. EXTREMITIES: No edema. Full range of motion of all extremities, equal. NEUROLOGIC: No focal deficit. Cranial nerves II through XII are grossly intact. No headache. No double vision. SKIN: Not dry. Intact. Turgor-normal. LYMPHATIC: No palpable lymph nodes/no lymphedema. MUSCULOSKELETAL: Normal joints with no swelling. Muscle tone is normal. LAB REVIEW: 11/07/20 05:10 11/07/20 05:10 11/07/20 05:10: Sodium 135.4, Potassium 3.78, Chloride 104.4, Carbon Dioxide 26.8, Anion Gap 7.98, BUN 9.1, Creatinine 0.67, Estimated GFR (MDRD) 84.00, BUN/Creatinine Ratio 13.58, Glucose 94.5, Calcium 8.28 L, Total Bilirubin 0.49, AST 27.4, ALT 13.9, Alkaline Phosphatase 60.1, Total Protein 5.84 L, Albumin 3.28 L, Globulin 2.56, Albumin/Globulin Ratio 1.28 11/07/20 05:10: WBC 5.44, RBC 3.71 L, Hgb 10.7 L, Hct 32.4 L, MCV 87.3, MCH 28.8, MCHC 33.0, RDW Coeff of Eulalia 14.8, Plt Count 194, Immature Gran % (Auto) 0.9, Neut % (Auto) 64.1, Lymph % (Auto) 26.5, [place] % (Auto) 6.3, Eos % (Auto) 1.8, Baso % (Auto) 0.4, Neut # (Auto) 3.5, Lymph # (Auto) 1.4, [place] # (Auto) 0.3 L, Eos # (Auto) 0.1, Baso # (Auto) 0.0, Immature Gran # (Auto) 0.1 11/05/20 05:40: Rickettsia IgG Ab Negative 11/05/20 05:40: Spotted Fever Grp IgM 0.32 ASSESSMENT: Please see below. 1. UTI positive for Enterococcus. 2. Generalized weakness. 3. Dehydration resolved. PLAN: 1. Continue IV antibiotics. 2. Stop IV fluids. Plan and coordination of the patient's care discussed in the presence of Superintendent Commissary and nurse. CONDITION: Stable SCRIBED BY: SARAH ROY Mixed Crop [employer] Livestock Farm Worker scribed while in presence of service performed by Dr. Sales/Jayla Velasquez APRN on 11/07/20 ([id number])
[2020-11-07] MEDS ORDERED: DECADRON IM ONE (12:07)
--- NOTE | 2020-11-07 13:57 | PN ---
DATE OF SERVICE: 11/05/20 SUBJECTIVE: The patient was seen and examined with the nurse practitioner. The patient's condition is stable. She is afebrile. She has been on multiple medications. Hydration seems to have resolved. The appetite is somewhat better. Electrolytes are in acceptable range. She is Covid negative. TIME SPENT: More than 30 minutes. Plan and coordination of the patient's care discussed in the presence of nurse. JOSHUA
--- NOTE | 2020-11-07 14:08 | PN ---
DATE OF SERVICE: 11/06/20 SUBJECTIVE: 84-year-old white female hospitalized with dehydration, fever, chills. Ultimately the patient grew Enterococci which was sensitive to Ampicillin. REVIEW OF SYSTEMS: CONSTITUTIONAL: Weakness. No night sweats. No fatigue, malaise, lethargy. No fever or chills. HEENT: Eyes: No visual changes. No eye pain. No eye discharge. ENT: No runny nose. No epistaxis. No sinus pain. No sore throat. No odynophagia. No congestion. RESPIRATORY: No cough, no congestion. No hemoptysis. No shortness of breath. CARDIOVASCULAR: No angina symptoms. No CHF symptoms. No atypical chest pain for CAD. No palpitations. No PND. No orthopnea. GASTROINTESTINAL: No abdominal pain. No nausea or vomiting. No diarrhea or constipation. No hematemesis. No hematochezia. GENITOURINARY: No urgency. No frequency. No dysuria. No hematuria. No obstructive symptoms. No discharge. No pain. No significant abnormal bleeding. MUSCULOSKELETAL: No musculoskeletal pain; no joint swelling. NEUROLOGICAL: No headache. No neck pain. No syncope. No seizures. No dizziness. PSYCHIATRIC: Not anxious. No depression. No suicidal thoughts. No homicidal thoughts. SKIN: No rash. No lesions. No wounds. ENDOCRINE: No unexplained weight loss. No weight gain. HEMATOLOGIC/LYMPHATIC: No anemia. No purpura. No petechiae. No prolonged or excessive bleeding. No palpable lymph nodes. PHYSICAL EXAMINATION: VITAL SIGNS: Temperature 97.8, pulse 68, respiratory rate 16, blood pressure 140/65, pulse ox 95%. HEENT: Head normocephalic, atraumatic. Eyes: Extraocular muscles are intact. Pupils are equal, round and reactive to light and accommodation. Ears: No lesions. Nose appeared normal. Throat: No exudate or erythema. NECK: Supple. No JVD, no carotid bruit. No lymphadenopathy or thyromegaly. LUNGS: Decreased breath sounds but clear to auscultation. Percussion note normal. Chest symmetrical. HEART: S1, S2, no S3. No murmurs. No cyanosis or clubbing. No ascites. Pulses: Dorsalis pedis and posterior tibial pulses +1 to +2 bilaterally. ABDOMEN: Soft. Nontender. Bowel sounds active. No CVA tenderness. No mass felt. EXTREMITIES: No edema. Full range of motion of all extremities, equal. NEUROLOGIC: No focal deficit. Cranial nerves II through XII are grossly intact. No headache. No double vision. SKIN: Not dry. Intact. Turgor - normal. LYMPHATIC: No palpable lymph nodes/no lymphedema. MUSCULOSKELETAL: Normal joints with no swelling. Muscle tone is normal. LABS: Hemoglobin 10.7, hematocrit 32, WBC 6,400, normal differential. Creatinine 0.7, BUN 10, potassium 3.5. ASSESSMENT: 1. UTI with Enterococci. PLAN: 1. Will change the antibiotics to Ampicillin. 2. Will continue Doxycycline. 3. The patient is encouraged to eat. 4. Dehydration status seems to have improved. TIME SPENT: More than 30 minutes. Plan and coordination of the patient's care discussed in the presence of nurse. JOSHUA
[2020-11-07] MEDS: REQUIP PO SCH (20:16)
[2020-11-07] MEDS: ZOFRAN 4 MG/2 ML IVP PRN (20:35)
[2020-11-08] MEDS: AMPICILLIN SODIUM 2 GM in SODIUM CHLORIDE 100 ML IV SCH ×4 (00:38→17:13)
[2020-11-08 05:12] LABS: HEMATOCRIT 32.3 % (37.0-47.0); HEMOGLOBIN 10.7 g/dl (12.0-16.0); IMMATURE GRANULOCYTE # (AUTO) 0.1 (0.0-1.0); IMMATURE GRANULOCYTE % (AUTO) 0.9 % (0.0-5.0); LYMPHOCYTES # (AUTO) 0.9 K/uL (0.60-3.4); LYMPHOCYTES % (AUTO) 17.1 (10.0-50.0); MEAN CORPUSCULAR HEMOGLOBIN 28.4 pg (27.0-31.0); MEAN CORPUSCULAR HGB CONC 33.1 (31.8-35.4); MEAN CORPUSCULAR VOLUME 85.7 fl (81.0-99.0); MONOCYTES # (AUTO) 0.1 K/uL (0.4-2.0); MONOCYTES % (AUTO) 2.4 (0-10); NEUTROPHILS # (AUTO) 4.2 K/ul (2.0-6.9); NEUTROPHILS % (AUTO) 79.6 % (42.2-75.2); PLATELET COUNT 213 10^3/uL (140-440); RDW COEFFICIENT OF VARIATION 14.5 % (11.6-14.8); RED BLOOD COUNT 3.77 10^6/ul (4.20-5.40); WHITE BLOOD COUNT 5.31 K/ul (4.6-10.2)
[2020-11-08 05:26] LABS: ALBUMIN 3.62 g/dL (3.5-5.0); ALKALINE PHOSPHATASE 63.9 U/L (53-141); ASPARTATE AMINO TRANSFERASE 26.6 U/L (14-36); BILIRUBIN,TOTAL 0.42 mg/dL (0.2-1.3); BLOOD UREA NITROGEN 12.4 mg/dL (7-17); CALCIUM 9.05 mg/dL (8.4-10.2); CARBON DIOXIDE 26.8 mmol/L (22-30.0); CHLORIDE 104.9 mmol/L (98-107); CREATININE 0.67 mg/dL (0.60-1.30); GLUCOSE 144.2 mg/dL (74-106); POTASSIUM 4.36 mmol/L (3.5-5.1); SODIUM 138.2 mmol/L (134.5-145); TOTAL PROTEIN 6.37 g/dL (6.3-8.2)
[2020-11-08] MEDS ORDERED: DECADRON IM ONE (09:16)
[2020-11-08] MEDS: ULTRAM PO SCH ×2 (09:40→20:08)
[2020-11-08] MEDS: ASPIRIN EC PO SCH (09:40)
[2020-11-08] MEDS: PROTONIX PO SCH ×2 (09:40→17:12)
[2020-11-08] MEDS: K-DUR PO SCH ×2 (09:41→17:12)
[2020-11-08] MEDS: CARDIZEM PO SCH ×2 (09:41→20:08)
--- NOTE | 2020-11-08 14:13 | PCM.PROG ---
Attending Provider: ATTENDING PROVIDER: Dr. ALEAH SALES DATE OF SERVICE: 11/08/20 SUBJECTIVE: This 84 year old /WHITE F was hospitalized 11/04/20 with dehydration, fever and chills. The patient has Enterococcus and UTI. She is being treated with Ampicillin. Doxycycline will be discontinued. She still has somewhat of an upset stomach which could be from combination of medication and present c ondition. Oxygen will be discontinued and started on Protonix. REVIEW OF SYSTEMS: CONSTITUTIONAL: No night sweats. No fatigue, malaise, lethargy. No fever or chills. HEENT: Eyes: No visual changes. No eye pain. No eye discharge. ENT: No runny nose. No epistaxis. No sinus pain. No odynophagia. No congestion. RESPIRATORY: No cough, no congestion. No hemoptysis. No shortness of breath. CARDIOVASCULAR: No angina symptoms. No CHF symptoms. No atypical chest pain for CAD. No palpitations. No orthopnea.. GASTROINTESTINAL: Appetite improved. No abdominal pain. No nausea or vomiting. No diarrhea or constipation. No hematemesis. No hematochezia. GENITOURINARY: No urgency. No frequency. No dysuria. No hematuria. No obstructive symptoms. No discharge. No pain. No significant abnormal bleeding. MUSCULOSKELETAL: No musculoskeletal pain; no joint swelling. NEUROLOGICAL: Awake, alert, oriented to time, place and person. No headache. No neck pain. No syncope. No seizures. No dizziness. PSYCHIATRIC: Not anxious. No depression. No suicidal thoughts. No homicidal thoughts. SKIN: No rash. No lesions. No wounds. ENDOCRINE: No unexplained weight loss. No weight gain. HEMATOLOGIC/LYMPHATIC: No anemia. No purpura. No petechiae. No prolonged or excessive bleeding. No palpable lymph nodes. PHYSICAL EXAMINATION: GENERAL: The patient is awake, alert and oriented, lying/sitting in bed in no distress. VITAL SIGNS: Temperature 97.9 F, Pulse 51, Respiratory Rate 18, BP 124/54, Pulse Ox 93% HEENT: Head normocephalic, atraumatic. Eyes: Extraocular muscles are intact. Pupils are equal, round and reactive to light and accommodation. Ears: No l esions. Nose appeared normal. Throat: No exudate or erythema. NECK: Supple. No JVD, no carotid bruit. No lymphadenopathy or thyromegaly. LUNGS: Clear to auscultation. Percussion note normal. Chest symmetrical. HEART: S1, S2, no S3. No murmurs. No cyanosis or clubbing. No ascites. Pulses: Dorsalis pedis and posterior tibial pulses +1 to +2 both sides. ABDOMEN: Soft. Non-tender. Bowel sounds active. No CVA tenderness. No mass felt. EXTREMITIES: No edema. Full range of motion of all extremities, equal. NEUROLOGIC: No focal deficit. Cranial nerves II through XII are grossly intact. No headache, no double vision or headache. SKIN: Warm and dry. Intact. Turgor-normal. LYMPHATIC: No palpable lymph nodes/no lymphedema. MUSCULOSKELETAL: Normal joints with no swelling. Muscle tone is normal. LAB REVIEW: 11/08/20 05:07 11/08/20 05:07 11/08/20 05:07: Sodium 138.2, Potassium 4.36, Chloride 104.9, Carbon Dioxide 26.8, Anion Gap 10.86, BUN 12.4, Creatinine 0.67, Estimated GFR (MDRD) 84.00, BUN/Creatinine Ratio 18.50, Glucose 144.2 H, Calcium 9.05, Total Bilirubin 0.42, AST 26.6, ALT 17.0, Alkaline Phosphatase 63.9, Total Protein 6.37, Albumin 3.62, Globulin 2.75, Albumin/Globulin Ratio 1.31 11/08/20 05:07: WBC 5.31, RBC 3.77 L, Hgb 10.7 L, Hct 32.3 L, MCV 85.7, MCH 28.4, MCHC 33.1, RDW Coeff of Eulalia 14.5, Plt Count 213, Immature Gran % (Auto) 0.9, Neut % (Auto) 79.6 H, Lymph % (Auto) 17.1, [place] % (Auto) 2.4, Eos % (Auto) 0.0, Baso % (Auto) 0.0, Neut # (Auto) 4.2, Lymph # (Auto) 0.9, [place] # (Auto) 0.1 L, Eos # (Auto) 0.0, Baso # (Auto) 0.0, Immature Gran # (Auto) 0.1 ASSESSMENT: Please see below. 1. Urinary tract infection with enterococcus seems to be under control on Ampicillin. 2. Dehydration resolved. 3. Hypertension under control. PLAN: 1. For rash that was noted yesterday will give 1/2 cc Decadron. 2. Continue Ampicillin. 3. D/C Doxycycline. 4. Give Protonix this morning 40 mg p.o. then twice a day. Plan and coordination of the patient's care discussed in the presence of Scaffold Erector and nurse. CONDITION: STABLE SCRIBED BY: SARAH ROY Sugar Chipper Machine Operator scribed while in presence of service performed by Dr. ALEAH SALES on 11/08/20 ([id number])
[2020-11-08] MEDS: REQUIP PO SCH (20:08)
[2020-11-09] MEDS: AMPICILLIN SODIUM 2 GM in SODIUM CHLORIDE 100 ML IV SCH ×4 (00:49→18:13)
[2020-11-09 05:35] LABS: BASOPHILS % (AUTO) 0.1 % (0.0-3.0); HEMATOCRIT 30.6 % (37.0-47.0); HEMOGLOBIN 10.1 g/dl (12.0-16.0); IMMATURE GRANULOCYTE # (AUTO) 0.1 (0.0-1.0); IMMATURE GRANULOCYTE % (AUTO) 1.2 % (0.0-5.0); LYMPHOCYTES % (AUTO) 10.2 (10.0-50.0); MEAN CORPUSCULAR HEMOGLOBIN 28.5 pg (27.0-31.0); MEAN CORPUSCULAR VOLUME 86.2 fl (81.0-99.0); MONOCYTES # (AUTO) 0.3 K/uL (0.4-2.0); MONOCYTES % (AUTO) 3.4 (0-10); NEUTROPHILS # (AUTO) 8.4 K/ul (2.0-6.9); NEUTROPHILS % (AUTO) 85.1 % (42.2-75.2); PLATELET COUNT 238 10^3/uL (140-440); RDW COEFFICIENT OF VARIATION 14.6 % (11.6-14.8); RED BLOOD COUNT 3.55 10^6/ul (4.20-5.40); WHITE BLOOD COUNT 9.89 K/ul (4.6-10.2)
[2020-11-09 06:01] LABS: ALANINE AMINOTRANSFERASE 16.4 U/L (0-35); ALBUMIN 3.32 g/dL (3.5-5.0); ALKALINE PHOSPHATASE 57.2 U/L (53-141); ASPARTATE AMINO TRANSFERASE 24.4 U/L (14-36); BILIRUBIN,TOTAL 0.34 mg/dL (0.2-1.3); BLOOD UREA NITROGEN 18.1 mg/dL (7-17); CALCIUM 8.76 mg/dL (8.4-10.2); CARBON DIOXIDE 26.9 mmol/L (22-30.0); CHLORIDE 105.3 mmol/L (98-107); CREATININE 0.71 mg/dL (0.60-1.30); GLUCOSE 134.1 mg/dL (74-106); POTASSIUM 4.55 mmol/L (3.5-5.1); SODIUM 136.8 mmol/L (134.5-145); TOTAL PROTEIN 5.97 g/dL (6.3-8.2)
[2020-11-09] MEDS: PROTONIX PO SCH ×2 (06:34→17:12)
[2020-11-09] MEDS: ULTRAM PO SCH ×2 (09:20→20:15)
[2020-11-09] MEDS: CARDIZEM PO SCH ×2 (09:20→20:15)
[2020-11-09] MEDS: K-DUR PO SCH (09:20)
[2020-11-09] MEDS: ASPIRIN EC PO SCH (09:21)
[2020-11-09] MEDS ORDERED: VISTARIL PO PRN (10:31)
[2020-11-09] MEDS: REQUIP PO SCH (20:15)
[2020-11-10] MEDS: AMPICILLIN SODIUM 2 GM in SODIUM CHLORIDE 100 ML IV SCH ×5 (00:17→23:49)
[2020-11-10 05:10] LABS: BASOPHILS % (AUTO) 0.3 % (0.0-3.0); EOSINOPHILS % (AUTO) 0.2 % (0.0-7.0); HEMATOCRIT 31.7 % (37.0-47.0); HEMOGLOBIN 10.5 g/dl (12.0-16.0); IMMATURE GRANULOCYTE # (AUTO) 0.4 (0.0-1.0); IMMATURE GRANULOCYTE % (AUTO) 4.5 % (0.0-5.0); LYMPHOCYTES # (AUTO) 1.7 K/uL (0.60-3.4); MEAN CORPUSCULAR HEMOGLOBIN 28.6 pg (27.0-31.0); MEAN CORPUSCULAR HGB CONC 33.1 (31.8-35.4); MEAN CORPUSCULAR VOLUME 86.4 fl (81.0-99.0); MONOCYTES # (AUTO) 0.5 K/uL (0.4-2.0); MONOCYTES % (AUTO) 4.9 (0-10); NEUTROPHILS # (AUTO) 6.9 K/ul (2.0-6.9); NEUTROPHILS % (AUTO) 72.1 % (42.2-75.2); PLATELET COUNT 277 10^3/uL (140-440); RED BLOOD COUNT 3.67 10^6/ul (4.20-5.40); WHITE BLOOD COUNT 9.59 K/ul (4.6-10.2)
[2020-11-10 05:23] LABS: ALANINE AMINOTRANSFERASE 16.9 U/L (0-35); ALBUMIN 3.34 g/dL (3.5-5.0); ALKALINE PHOSPHATASE 53.3 U/L (53-141); ASPARTATE AMINO TRANSFERASE 23.4 U/L (14-36); BILIRUBIN,TOTAL 0.35 mg/dL (0.2-1.3); BLOOD UREA NITROGEN 19.2 mg/dL (7-17); CALCIUM 8.84 mg/dL (8.4-10.2); CARBON DIOXIDE 29.2 mmol/L (22-30.0); CHLORIDE 104.2 mmol/L (98-107); CREATININE 0.82 mg/dL (0.60-1.30); GLUCOSE 98.9 mg/dL (74-106); POTASSIUM 4.4 mmol/L (3.5-5.1); SODIUM 138.4 mmol/L (134.5-145); TOTAL PROTEIN 5.86 g/dL (6.3-8.2)
[2020-11-10] MEDS: PROTONIX PO SCH ×2 (05:38→16:07)
[2020-11-10] MEDS: ASPIRIN EC PO SCH (08:45)
[2020-11-10] MEDS: ULTRAM PO SCH ×2 (08:45→20:37)
[2020-11-10] MEDS: CARDIZEM PO SCH ×2 (08:45→20:38)
[2020-11-10] MEDS: K-DUR PO SCH (08:45)
[2020-11-10] MEDS: REQUIP PO SCH (20:37)
[2020-11-11 05:08] LABS: HEMATOCRIT 35.5 % (37.0-47.0); HEMOGLOBIN 11.8 g/dl (12.0-16.0); MEAN CORPUSCULAR HEMOGLOBIN 28.6 pg (27.0-31.0); MEAN CORPUSCULAR HGB CONC 33.2 (31.8-35.4); MEAN CORPUSCULAR VOLUME 86.2 fl (81.0-99.0); PLATELET COUNT 302 10^3/uL (140-440); RDW COEFFICIENT OF VARIATION 15.1 % (11.6-14.8); RED BLOOD COUNT 4.12 10^6/ul (4.20-5.40)
[2020-11-11 05:18] LABS: ALANINE AMINOTRANSFERASE 17.5 U/L (0-35); ALBUMIN 3.72 g/dL (3.5-5.0); ALKALINE PHOSPHATASE 64.9 U/L (53-141); ASPARTATE AMINO TRANSFERASE 25.5 U/L (14-36); BILIRUBIN,TOTAL 0.39 mg/dL (0.2-1.3); BLOOD UREA NITROGEN 18.7 mg/dL (7-17); CALCIUM 9.17 mg/dL (8.4-10.2); CARBON DIOXIDE 29.8 mmol/L (22-30.0); CREATININE 0.9 mg/dL (0.60-1.30); GLUCOSE 86.6 mg/dL (74-106); POTASSIUM 4.24 mmol/L (3.5-5.1); SODIUM 135.8 mmol/L (134.5-145); TOTAL PROTEIN 6.45 g/dL (6.3-8.2)
[2020-11-11 05:24] LABS: ANISOCYTOSIS NOT PRESENT (NOT PRESENT)
[2020-11-11 05:36] VITALS: BP 119/46; TEMP 98.9
[2020-11-11] MEDS: AMPICILLIN SODIUM 2 GM in SODIUM CHLORIDE 100 ML IV SCH (05:44)
[2020-11-11] MEDS: PROTONIX PO SCH ×2 (05:44→16:05)
[2020-11-11] MEDS: MILK OF MAGNESIA PO PRN (05:44)
[2020-11-11] MEDS: CARDIZEM PO SCH (08:43)
[2020-11-11] MEDS: ULTRAM PO SCH (08:43)
[2020-11-11] MEDS: ASPIRIN EC PO SCH (08:43)
[2020-11-11] MEDS: K-DUR PO SCH (08:43)
--- NOTE | 2020-11-11 08:45 | PN ---
DATE OF SERVICE: 11/07/20 SUBJECTIVE: The patient was seen and examined with the nurse practitioner. The patient's condition is improving. She is afebrile, feeling better. The rash in the back and front from antibiotics, will give 1 cc Decadron and observe her, could be part of infection. TIME SPENT: More than 30 minutes. Plan and coordination of the patient's care discussed in the presence of nurse. JOSHUA
--- NOTE | 2020-11-11 11:01 | PCM.PROG ---
Attending Provider: ATTENDING PROVIDER: Dr. ALEAH SALES This patient is seen with Jayla Velasquez, Nurse Practitioner. DATE OF SERVICE: 11/11/20 SUBJECTIVE: This 84 year old /WHITE F was hospitalized 11/04/20. The patient is resting comfortably. Feeling much better. Up and about. Labs are stable. Ready to go home today. REVIEW OF SYSTEMS: CONSTITUTIONAL: No night sweats. Fatigue. No fever or chills. HEENT: Eyes: No visual changes. No eye pain. No eye discharge. ENT: No runny nose. No epistaxis. No sinus pain. No odynophagia. No congestion. RESPIRATORY: No cough, no congestion. No hemoptysis. No shortness of breath. CARDIOVASCULAR: No angina symptoms. No CHF symptoms. No atypical chest pain for CAD. No palpitations. No orthopnea.. GASTROINTESTINAL: No abdominal pain. No nausea or vomiting. No diarrhea or constipation. No hematemesis. No hematochezia. GENITOURINARY: No urgency. No frequency. No dysuria. No hematuria. No obstructive symptoms. No discharge. No pain. No significant abnormal bleeding. MUSCULOSKELETAL: No musculoskeletal pain; no joint swelling. NEUROLOGICAL: Awake, alert, oriented to time, place and person. No headache. No neck pain. No syncope. No seizures. No dizziness. PSYCHIATRIC: Not anxious. No depression. No suicidal thoughts. No homicidal thoughts. SKIN: No rash. No lesions. No wounds. ENDOCRINE: No unexplained weight loss. No weight gain. HEMATOLOGIC/LYMPHATIC: No anemia. No purpura. No petechiae. No prolonged or excessive bleeding. No palpable lymph nodes. PHYSICAL EXAMINATION: GENERAL: The patient is awake, alert and oriented, lying in bed in no distress. VITAL SIGNS: Temperature 98.9 F, Pulse 60, Respiratory Rate 16, BP 119/46, Pulse Ox 98% HEENT: Head normocephalic, atraumatic. Eyes: Extraocular muscles are intact. Pupils are equal, round and reactive to light and accommodation. Ears: No lesions. Nose appeared normal. Throat: No exudate or erythema. NECK: Supple. No JVD, no carotid bruit. No lymphadenopathy or thyromegaly. LUNGS: Clear to auscultation. Percussion note normal. Chest symmetrical. HEART: S1, S2, no S3. No murmurs. No cyanosis or clubbing. No ascites. Pulses: Dorsalis pedis and posterior tibial pulses +1 to +2 both sides. ABDOMEN: Soft. Non-tender. Bowel sounds active. No CVA tenderness. No mass felt. EXTREMITIES: No edema. Full range of motion of all extremities, equal. NEUROLOGIC: No focal deficit. Cranial nerves II through XII are grossly intact. No headache. No double vision. SKIN: Not dry. Intact. Turgor-normal. LYMPHATIC: No palpable lymph nodes/no lymphedema. MUSCULOSKELETAL: Normal joints with no swelling. Muscle tone is normal. LAB REVIEW: 11/11/20 04:44 11/11/20 04:44 11/11/20 04:44: Sodium 135.8, Potassium 4.24, Chloride 100.0, Carbon Dioxide 29.8, Anion Gap 10.24, BUN 18.7 H, Creatinine 0.90, Estimated GFR (MDRD) 60.00, BUN/Creatinine Ratio 20.77, Glucose 86.6, Calcium 9.17, Total Bilirubin 0.39, AST 25.5, ALT 17.5, Alkaline Phosphatase 64.9, Total Protein 6.45, Albumin 3.72, Globulin 2.73, Albumin/Globulin Ratio 1.36 11/11/20 04:44: WBC 10.00, RBC 4.12 L, Hgb 11.8 L, Hct 35.5 L, MCV 86.2, MCH 28.6, MCHC 33.2, RDW Coeff of Eulalia 15.1 H, Plt Count 302, Neutrophils % (Manual) 69.0, Lymphocytes % (Manual) 18.0, Monocytes % (Manual) 7.0, Eosinophils % (Manual) 2.0, Metamyelocytes % 4.0 H, Anisocytosis Not present ASSESSMENT: Please see below. 1. UTI, positive enterococcus 2. Dehydration, resolved PLAN: 1. Discharge home 2. Ampicillin 500mg QID 3. Vistaril 25mg TID PRN 15 tablets for itching. Plan and coordination of the patient's care discussed in the presence of High Pressure Cleaner and nurse. SCRIBED BY: Felipe ALEJANDROist scribed while in presence of service performed by Dr. Sales/Jayla Velasquez APRN on 11/11/20 ([id number])
--- NOTE | 2020-11-11 13:04 | PN ---
%.0DATE OF SERVICE: 11/10/2020 SUBJECTIVE: The patient is resting comfortably. Yesterday she had complaining of itching however she declined a Decadron injection and she did not use Vistaril. She slept well and she has been doing well, afebrile. REVIEW OF SYSTEMS: CONSTITUTIONAL: No night sweats. Fatigue. No fever or chills. HEENT: Eyes: No visual changes. No eye pain. No eye discharge. ENT: No runny nose. No epistaxis. No sinus pain. No sore throat. No odynophagia. No congestion. RESPIRATORY: No cough, no congestion. No hemoptysis. No shortness of breath. CARDIOVASCULAR: No angina symptoms. No CHF symptoms. No atypical chest pain for CAD. No palpitations. No PND. No orthopnea. GASTROINTESTINAL: No abdominal pain. No nausea or vomiting. No diarrhea or constipation. No hematemesis. No hematochezia. GENITOURINARY: No urgency. No frequency. No dysuria. No hematuria. No obstructive symptoms. No discharge. No pain. No significant abnormal bleeding. MUSCULOSKELETAL: No musculoskeletal pain; no joint swelling. NEUROLOGICAL: No headache. No neck pain. No syncope. No seizures. No dizziness. PSYCHIATRIC: Not anxious. No depression. No suicidal thoughts. No homicidal thoughts. SKIN: No rash. No lesions. No wounds. ENDOCRINE: No unexplained weight loss. No weight gain. HEMATOLOGIC/LYMPHATIC: No anemia. No purpura. No petechiae. No prolonged or excessive bleeding. No palpable lymph nodes. PHYSICAL EXAMINATION: GENERAL: The patient is alert and oriented. VITAL SIGNS: Temperature 97, heart rate 51, respiratory rate 16, blood pressure 120/55 and pulse ox 99% HEENT: Head normocephalic, atraumatic. Eyes: Extraocular muscles are intact. Pupils are equal, round and reactive to light and accommodation. Ears: No lesions. Nose appeared normal. Throat: No exudate or erythema. NECK: Supple. No JVD, no carotid bruit. No lymphadenopathy or thyromegaly. LUNGS: Diminished breath sounds. Clear to auscultation. Percussion note normal. Chest symmetrical. HEART: S1, S2, no S3. No murmurs. No cyanosis or clubbing. No ascites. Pulses: Dorsalis pedis and posterior tibial pulses +1 to +2 bilaterally. ABDOMEN: Soft. Nontender. Bowel sounds active. No CVA tenderness. No mass felt. EXTREMITIES: No edema. Full range of motion of all extremities, equal. NEUROLOGIC: No focal deficit. Cranial nerves II through XII are grossly intact. No headache. No double vision. SKIN: Not dry. Intact. Turgor - normal. LYMPHATIC: No palpable lymph nodes/no lymphedema. MUSCULOSKELETAL: Normal joints with no swelling. Muscle tone is normal. LABS: WBC 9.5, hgb 10.5, hct 31.7, plt count 277, glucose 98, sodium 138, potassium 4.4, BUN 19, creatinine 1.82. ASSESSMENT: 1. UTI, positive enterococcus 2. Dehydration PLAN: 1. Continue IV antibiotics 2. We will plan on possible discharge tomorrow or Wednesday TIME SPENT: More than 30 minutes. Plan and coordination of the patient's care discussed in the presence of nurse. JOSHUA
--- NOTE | 2020-11-11 13:08 | PN ---
DATE OF SERVICE: 11/10/20 SUBJECTIVE: The patient was seen and examined with the nurse practitioner today. She is afebrile, doing well. She has been treated for urinary tract infection. The likely date of discharge is tomorrow. The patient's blood pressure is normal. Cardiovascular status is stable. TIME SPENT: More than 30 minutes. Plan and coordination of the patient's care discussed in the presence of nurse. JOSHUA
--- NOTE | 2020-11-11 13:42 | CM.DICTOOL ---
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 GURROLA AT [facility], [place] DETACHED RETINA LT EYE 03/[address] HOLDEN IN [place] CHRONIC LEG EDEMA SURGICAL HISTORY: HIATAL HERNIA SURGERY CODE STATUS: FULL CODE LAST VITALS Temp Pulse Resp BP Pulse Ox 98.9 F 60 16 119/46 L 98 11/11/20 05:34 11/11/20 05:34 11/11/20 05:34 11/11/20 05:34 11/11/20 05:34 TAKE THESE MEDICATIONS AT HOME Aspirin (Aspirin 81 Mg Tablet.) 81 mg PO DAILYWM [facility] Last Admin: 11/11/20 08:43 Dose: 81 mg Diltiazem HCl (Diltiazem Hcl 60 Mg Tablet) 60 mg PO Q12HR [facility] Last Admin: 11/11/20 08:43 Dose: 60 mg Hydroxyzine Pamoate (Hydroxyzine Pamoate 25 Mg Capsule) 25 mg PO TID PRN PRN Reason: ITCHING Last Admin: 11/10/20 20:37 Dose: 25 mg Ampicillin 500 MG PO QID X 7 MORE DAYS Ropinirole HCl (Ropinirole Hcl 0.25 Mg Tablet) 0.25 mg PO BEDTIME [facility] Last Admin: 11/10/20 20:37 Dose: 0.25 mg Tramadol HCl (Tramadol Hcl 50 Mg Tablet) 50 mg PO BID [facility] Last Admin: 11/11/20 08:43 Dose: 50 mg ATROVASTATIN 20 MG PO DAILY TYLENOL 650 MG PO TID PRN ALLERGIES No Known Allergies Allergy (Verified 11/04/20 10:02) DISCONTINUED MEDICATIONS NONE NEW PRESCRIPTIONS: VISTARIL 25 mg PO TID PRN, # 25, NO REFILLS Ampicillin 500 MG PO QID X 7 MORE DAYS, # 21, NO REFILLS SMOKING: N/A DISEASE SPECIFIC EDUCATION: UTI MEDICATION CHANGES ACTIVITY BOWEL MOTILITY PROMOTION DIAMANTE ZAMUDIO FOLLOW UP LAB REVIEW: 11/11/20 04:44 11/11/20 04:44 11/11/20 04:44: Sodium 135.8, Potassium 4.24, Chloride 100.0, Carbon Dioxide 29.8, Anion Gap 10.24, BUN 18.7 H, Creatinine 0.90, Estimated GFR (MDRD) 60.00, BUN/Creatinine Ratio 20.77, Glucose 86.6, Calcium 9.17, Total Bilirubin 0.39, AST 25.5, ALT 17.5, Alkaline Phosphatase 64.9, Total Protein 6.45, Albumin 3.72, Globulin 2.73, Albumin/Globulin Ratio 1.36 11/11/20 04:44: WBC 10.00, RBC 4.12 L, Hgb 11.8 L, Hct 35.5 L, MCV 86.2, MCH 28.6, MCHC 33.2, RDW Coeff of Eulalia 15.1 H, Plt Count 302, Neutrophils % (Manual) 69.0, Lymphocytes % (Manual) 18.0, Monocytes % (Manual) 7.0, Eosinophils % (Manual) 2.0, Metamyelocytes % 4.0 H, Anisocytosis Not present PLAN: DISCHARGE: RETURN TO HER HOME NOVEMBER 11, 2020 SHE REMAINS INDEPENDENT ACTIVITY: UP TOLERATED, WALK IN HOME FREQUENTLY WITH REST PERIODS STAY INDOORS DURING HOT WEATHER, NO STRENUOUS ACTIVITY FOLLOW PANDEMIC PRECAUTIONS OXYGEN: PROVIDED BY [facility] @ 2 L/M PER N/C CONTINUOS OXYGEN PRECAUTIONS DIET: REGULAR WITH ADEQUATE WATER AND FLUID INTAKE FOLLOW-UP: SEE DR. SALES/ CARMELA ZAMUDIO APRN/ BROOK POWELL IN THE OFFICE ON NOVEMBER 19, 2020 @ 0930 AM CODE STATUS: FULL CODE MRS LASSITER REMAINS ALERT AND ORIENTED X 4. SHE HAS BEEN AND CONTINUES TO BE INDEPENDENT WITH AMBULATION, ADLs AND IADLs. RESPIRATIONS EVEN AND UNLABORED, HOWEVER REPORTS SOA AT TIMES AT REST AND DOES GET OUT OF BREATH WITH ACTIVITY, PENITENTIARY. PULSE OX LEVELS FALL BELOW 88% WITH AMBULATION SKIN WARM AND DRY AND INTACT EXCEPT A FADING RASH THAT STILL ITCHES SOME. NUTRITIONAL INTAKE FAIR, WHICH SHE STATES THAT SHE DOES NOT EAT A LOT TYPICALLY. FLUID INTAKE WNL. SHE IS CONTINENT OF BOWEL AND BLADDER. SHE HAS NO BURNING OR ANY OTHER REPORTS OF UNUSUAL SENSATIONS WITH VOIDING. SHE LIVES ALONE AND WANTS TO RETURN HOME. MD CARMELA BLUE APRN ALYCE HANNAN, APRN
[2020-11-11] MEDS ORDERED: SYMBICORT 160-4.5 MCG INHALER IH SCH (15:00)
--- NOTE | 2020-11-12 13:27 | PN ---
DATE OF SERVICE: 11/09/20 SUBJECTIVE: The patient is sitting up in her bed. She reports she is feeling better. She has not had any chills. No fever in the past 24 hours. She does continue to still have a rash and complaint of itching which has now progressed to her abdomen, this is likely due to the Ampicillin; however, this is the drug of choice for Enterococcus. REVIEW OF SYSTEMS: CONSTITUTIONAL: Fatigue. No night sweats. No malaise, lethargy. No fever or chills. HEENT: Eyes: No visual changes. No eye pain. No eye discharge. ENT: No runny nose. No epistaxis. No sinus pain. No sore throat. No odynophagia. No congestion. RESPIRATORY: No cough, no congestion. No hemoptysis. No shortness of breath. CARDIOVASCULAR: No angina symptoms. No CHF symptoms. No atypical chest pain for CAD. No palpitations. No PND. No orthopnea. GASTROINTESTINAL: No abdominal pain. No nausea or vomiting. No diarrhea or constipation. No hematemesis. No hematochezia. GENITOURINARY: No urgency. No frequency. No dysuria. No hematuria. No obstructive symptoms. No discharge. No pain. No significant abnormal bleeding. MUSCULOSKELETAL: No musculoskeletal pain; no joint swelling. NEUROLOGICAL: No headache. No neck pain. No syncope. No seizures. No dizziness. PSYCHIATRIC: Not anxious. No depression. No suicidal thoughts. No homicidal thoughts. SKIN: Rash, itching. No lesions. No wounds. ENDOCRINE: No unexplained weight loss. No weight gain. HEMATOLOGIC/LYMPHATIC: No anemia. No purpura. No petechiae. No prolonged or excessive bleeding. No palpable lymph nodes. PHYSICAL EXAMINATION: VITAL SIGNS: Temperature 97.6, heart rate 45, respirations 16, blood pressure 129/55, pulse ox 94% on 2L. HEENT: Head normocephalic, atraumatic. Eyes: Extraocular muscles are intact. Pupils are equal, round and reactive to light and accommodation. Ears: No lesions. Nose appeared normal. Throat: No exudate or erythema. NECK: Supple. No JVD, no carotid bruit. No lymphadenopathy or thyromegaly. LUNGS: Clear to auscultation. Percussion note normal. Chest symmetrical. HEART: S1, S2, no S3. No murmurs. No cyanosis or clubbing. No ascites. Pulses: Dorsalis pedis and posterior tibial pulses +1 to +2 bilaterally. ABDOMEN: Soft. Nontender. Bowel sounds active. No CVA tenderness. No mass felt. EXTREMITIES: No edema. Full range of motion of all extremities, equal. NEUROLOGIC: No focal deficit. Cranial nerves II through XII are grossly intact. No headache. No double vision. SKIN: Not dry. Intact. Turgor - normal. LYMPHATIC: No palpable lymph nodes/no lymphedema. MUSCULOSKELETAL: Normal joints with no swelling. Muscle tone is normal. LABS: White count 9.8, hemoglobin 10.1, hematocrit 30.6, platelets 238. Sodium 136, potassium 4.5, BUN 18, creatinine 0.71, glucose 134. ASSESSMENT: 1. Urinary tract infection, positive Enterococcus. 2. Medication reaction, rash likely due to Ampicillin. 3. Hypertension. 4. Chronic anemia. PLAN: 1. Will add Vistaril 25 mg q.8hr p.r.n. 2. Discussed with pharmacy regarding a medication change due to the itching and the rash although she is not having any swelling anywhere so the pharmacist recommend that we stay the course with Ampicillin as it is the drug of choice. We will see if the Vistaril helps today and if not then we will change IV medications tomorrow. TIME SPENT: More than 30 minutes. Plan and coordination of the patient's care discussed in the presence of nurse. JOSHUA
[2020-11-12 16:16] LABS: IGG P18 AB Absent (.); IGG P23 AB Absent (.); IGG P28 AB Absent (.); IGG P30 AB Absent (.); IGG P39 AB Absent (.); IGG P41 AB Present (.); IGG P45 AB Absent (.); IGG P58 AB Absent (.); IGG P66 AB Absent (.); IGG P93 AB Absent (.); IGM P23 AB Absent (.); IGM P39 AB Absent (.); IGM P41 AB Absent (.); LYME IGG WB INTERP Negative (.); LYME IGM WB INTERP Negative (.)
--- NOTE | 2020-11-13 08:24 | PN ---
DATE OF SERVICE: 11/11/20 SUBJECTIVE: The patient was seen and examined today. She is feeling a lot better. She is ready to go home. No fever, no chills. No PND, no orthopnea. The patient was seen and examined with the nurse practitioner. PLAN: The patient is going to be discharged home on antibiotics. TIME SPENT: More than 30 minutes. Plan and coordination of the patient's care discussed in the presence of nurse. JOSHUA
--- NOTE | 2020-11-13 08:26 | PN ---
BILLING 11/04/20 ADMISSION DAY LEVEL 5 11/05/20 INTERMEDIATE 11/06/20 INTERMEDIATE 11/07/20 INTERMEDIATE 11/08/20 INTERMEDIATE 11/09/20 INTERMEDIATE 11/10/20 INTERMEDIATE 11/11/20 FINAL DAY - D IN DISCHARGE MTDD
--- NOTE | 2020-11-21 09:45 | DS ---
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 GURROLA AT [facility] DETACHED RETINA LT EYE 03/[address] HOLDEN IN [place] CHRONIC LEG EDEMA SURGICAL HISTORY: HIATAL HERNIA SURGERY CODE STATUS: FULL CODE LAST VITALS: Temp Pulse Resp BP Pulse Ox 98.9 F 60 16 119/46 L 98 11/11/20 05:34 11/11/20 05:34 11/11/20 05:34 11/11/20 05:34 11/11/20 05:34 TAKE THESE MEDICATIONS AT HOME: Aspirin (Aspirin 81 Mg Tablet.) 81 mg PO DAILYWM [facility] Last Admin: 11/11/20 08:43 Dose: 81 mg Diltiazem HCl (Diltiazem Hcl 60 Mg Tablet) 60 mg PO Q12HR [facility] Last Admin: 11/11/20 08:43 Dose: 60 mg Hydroxyzine Pamoate (Hydroxyzine Pamoate 25 Mg Capsule) 25 mg PO TID PRN PRN Reason: ITCHING Last Admin: 11/10/20 20:37 Dose: 25 mg Ampicillin 500 MG PO QID X 7 MORE DAYS Ropinirole HCl (Ropinirole Hcl 0.25 Mg Tablet) 0.25 mg PO BEDTIME [facility] Last Admin: 11/10/20 20:37 Dose: 0.25 mg Tramadol HCl (Tramadol Hcl 50 Mg Tablet) 50 mg PO BID [facility] Last Admin: 11/11/20 08:43 Dose: 50 mg ATROVASTATIN 20 MG PO DAILY TYLENOL 650 MG PO TID PRN ALLERGIES: No Known Allergies Allergy (Verified 11/04/20 10:02) DISCONTINUED MEDICATIONS: NONE NEW PRESCRIPTIONS: VISTARIL 25 mg PO TID PRN, # 25, NO REFILLS Ampicillin 500 MG PO QID X 7 MORE DAYS, # 21, NO REFILLS SMOKING: N/A DISEASE SPECIFIC EDUCATION: UTI MEDICATION CHANGES ACTIVITY BOWEL MOTILITY PROMOTION DIAMANTE ZAMUDIO FOLLOW UP LAB REVIEW: 11/11/20 04:44 11/11/20 04:44 11/11/20 04:44: Sodium 135.8, Potassium 4.24, Chloride 100.0, Carbon Dioxide 29.8, Anion Gap 10.24, BUN 18.7 H, Creatinine 0.90, Estimated GFR (MDRD) 60.00, BUN/Creatinine Ratio 20.77, Glucose 86.6, Calcium 9.17, Total Bilirubin 0.39, AST 25.5, ALT 17.5, Alkaline Phosphatase 64.9, Total Protein 6.45, Albumin 3.72, Globulin 2.73, Albumin/Globulin Ratio 1.36 11/11/20 04:44: WBC 10.00, RBC 4.12 L, Hgb 11.8 L, Hct 35.5 L, MCV 86.2, MCH 28.6, MCHC 33.2, RDW Coeff of Eulalia 15.1 H, Plt Count 302, Neutrophils % (Manual) 69.0, Lymphocytes % (Manual) 18.0, Monocytes % (Manual) 7.0, Eosinophils % (Manual) 2.0, Metamyelocytes % 4.0 H, Anisocytosis Not present DISCHARGE INSTRUCTIONS: DISCHARGE: RETURN TO HER HOME NOVEMBER 11, 2020. SHE REMAINS INDEPENDENT. MD FOLLOW- UP: SEE DR. SALES/ CARMELA ZAMUDIO APRN/ BROOK POWELL IN THE OFFICE ON NOVEMBER 19, 2020 @ 0930 AM. CODE STATUS: FULL CODE. OXYGEN: PROVIDED BY [facility] @ 2 L/M PER N/C CONTINUOS. OXYGEN PRECAUTIONS ACTIVITY: UP TOLERATED, WALK IN HOME FREQUENTLY WITH REST PERIODS STAY INDOORS DURING HOT WEATHER, NO STRENUOUS ACTIVITY FOLLOW PANDEMIC PRECAUTIONS DIET: REGULAR WITH ADEQUATE WATER AND FLUID INTAKE HOSPITAL COURSE: 84 year old white female who came to the emergency room with fever and weakness. She also had chills and some nausea. She had abnormal U/A in the ER, urine culture was positive for enterococcus. Fever up to 102 in the emergency room which lasted several days. She was admitted and placed on Rocephin 1 gram IV daily and given normal saline IV after the culture was completed it was found to be enterococcus and she was placed on IV Ampicillin 500mg Q 4 hours. She did develop some rash and some itching. She was given 1cc a Decadron with PRN Vistaril which took care of the problem Over the course of several days she did become afebrile. Myalgia has resolved. Blood cultures were negative. Respiratory panel was negative. She will go home on Ampicillin PO 500mg QID for the next 5 days to complete her course. At the time of discharge kidney function was back to normal. She was eating well, up and about and had been afebrile for greater than 48 hours. We will discharge her in stable condition and she will followup with us in the office next week. TIME SPENT: More than 60 minutes. MTDD
== END 2020-11-11 17:16 | disposition home or self-care (01) | DRG 690 ==
LOC: ED 09:56 → MEDSURG A 09:56 → OBSVTOIN 13:33 → MEDSURG A 14:25
PROVIDERS: ADMIT Internal Medicine; ATTEND Internal Medicine
DX: N39.0 Urinary tract infection, site not specified; R06.02 Shortness of breath; Z20.822 Contact with and (suspected) exposure to COVID-19; D64.9 Anemia, unspecified; R53.1 Weakness; B95.2 Enterococcus as the cause of diseases classified elsewhere; E87.6 Hypokalemia; E86.0 Dehydration; I10 Essential (primary) hypertension; R53.81 Other malaise; J44.9 Chronic obstructive pulmonary disease, unspecified; R05 Cough; T36.0X5A Adverse effect of penicillins, initial encounter; R21 Rash and other nonspecific skin eruption

== ENCOUNTER 2021-02-17 10:02 | Inpatient (IN) ==
[2021-02-17 11:09] VITALS: BMI 23.6
[2021-02-17] MEDS ORDERED: TYLENOL PO PRN (12:08)
[2021-02-17] MEDS ORDERED: [UNRECOGNIZED DRUG - OTHER] PO PRN (12:08)
[2021-02-17] MEDS ORDERED: LASIX TAB PO PRN (12:08)
[2021-02-17] MEDS ORDERED: MICRO-K CAP PO PRN (12:26)
[2021-02-17] MEDS ORDERED: NITROSTAT SL PRN (12:27)
[2021-02-17] MEDS ORDERED: ATROPINE SULFATE PFS IVP PRN (12:27)
[2021-02-17] MEDS ORDERED: SODIUM CHLORIDE 1,000 ML IV SCH (12:30)
[2021-02-17] MEDS ORDERED: VEKLURY 100 MG in SODIUM CHLORIDE 250 ML IV SCH (12:30)
[2021-02-17] MEDS ORDERED: VEKLURY 200 MG in SODIUM CHLORIDE 250 ML IV ONE (13:00)
[2021-02-17] MEDS: CARDIZEM PO SCH ×2 (13:04→21:25)
[2021-02-17] MEDS: ELIQUIS PO SCH ×2 (13:04→21:25)
[2021-02-17] MEDS: DECADRON IVP SCH (13:05)
[2021-02-17] MEDS: VITAMIN D PO SCH (13:05)
[2021-02-17] MEDS: ZINC-220 PO SCH (13:06)
[2021-02-17 13:11] LABS: BASOPHILS % (AUTO) 0.5 % (0.0-3.0); HEMATOCRIT 37.3 % (37.0-47.0); HEMOGLOBIN 12.4 g/dl (12.0-16.0); IMMATURE GRANULOCYTE % (AUTO) 0.2 % (0.0-5.0); LYMPHOCYTES # (AUTO) 1.4 K/uL (0.60-3.4); LYMPHOCYTES % (AUTO) 33.9 (10.0-50.0); MEAN CORPUSCULAR HEMOGLOBIN 26.8 pg (27.0-31.0); MEAN CORPUSCULAR HGB CONC 33.2 (31.8-35.4); MEAN CORPUSCULAR VOLUME 80.6 fl (81.0-99.0); MONOCYTES # (AUTO) 0.3 K/uL (0.4-2.0); MONOCYTES % (AUTO) 7.3 (0-10); NEUTROPHILS # (AUTO) 2.5 K/ul (2.0-6.9); NEUTROPHILS % (AUTO) 58.1 % (42.2-75.2); PLATELET COUNT 117 10^3/uL (140-440); RDW COEFFICIENT OF VARIATION 15.3 % (11.6-14.8); RED BLOOD COUNT 4.63 10^6/ul (4.20-5.40); WHITE BLOOD COUNT 4.22 K/ul (4.6-10.2)
[2021-02-17] MEDS: SODIUM CHLORIDE 1,000 ML IV SCH (13:11)
[2021-02-17 13:16] LABS: ABG O2 HGB 94.7 % (95-100); BEecf 2.5 (-2.0-3.0); COHb 2.8 (0.5-1.5); HCO3 25.7 (21-28); MetHb 1.3 (0-1.5); TCO2 26.7 (19-24)
[2021-02-17 13:20] LABS: ALANINE AMINOTRANSFERASE 17.5 U/L (0-35); ALBUMIN 3.86 g/dL (3.5-5.0); ALKALINE PHOSPHATASE 72.6 U/L (53-141); ASPARTATE AMINO TRANSFERASE 32.3 U/L (14-36); BILIRUBIN,TOTAL 0.27 mg/dL (0.2-1.3); BLOOD UREA NITROGEN 10.2 mg/dL (7-17); CALCIUM 8.75 mg/dL (8.4-10.2); CARBON DIOXIDE 26.3 mmol/L (22-30.0); CHLORIDE 102.7 mmol/L (98-107); CREATININE 0.61 mg/dL (0.60-1.30); GLUCOSE 94.7 mg/dL (74-106); POTASSIUM 3.36 mmol/L (3.5-5.1); PROTHROMBIN TIME 10.3 SEC (9.3-11.0); SODIUM 137.3 mmol/L (134.5-145)
[2021-02-17] MEDS: VENTOLIN HFA (PER PUFF-WITH SPACER) IH SCH ×2 (13:21→20:05)
[2021-02-17 13:50] LABS: TROPONIN I < 0.012 ng/ml (0.0000-0.120)
[2021-02-17] MEDS ORDERED: VENTOLIN HFA (PER PUFF-WITH SPACER) IH SCH (15:00)
[2021-02-17 16:44] LABS: BILIRUBIN,URINE Negative (NEGATIVE); CLARITY,URINE Clear (CLEAR); COLOR,URINE Yellow (YELLOW); GLUCOSE, URINE (UA) Negative (NEGATIVE); KETONES,URINE Trace (NEGATIVE); LEUKOCYTE ESTERASE ,URINE Negative (NEGATIVE); NITRITE,URINE Negative (NEGATIVE); PROTEIN,URINE Negative (NEGATIVE); URINE, BLOOD Trace-intact (NEGATIVE); UROBILINOGEN,URINE 0.2 (0.2)
--- NOTE | 2021-02-17 16:58 | CT ---
EXAM: CT THORAX HISTORY: Shortness of breath. TECHNIQUE: CT thorax with and without intravenous contrast. Multiplanar images presented. COMPARISON: None FINDINGS: Cardiomegaly is present. No pericardial effusion. There is mild to moderate atherosclerotic disease which also involves the coronary arteries. There are scattered mildly prominent nonspecific mediast inal and hilar lymph nodes present. There is a small hiatal hernia. _ Lungs reveal patchy infiltrates bilaterally mainly in the mid to lower lung zones consistent with pne umonia. There is no vascular congestion, pneumothorax or pleural fluid. Bones reveal age-related de generative changes of the spine. IMPRESSION: 1. Patchy bilateral infiltrates consistent with pneumonia. 2. Cardiomegaly atherosclerosis. 3. Small hiatal hernia. _ All CT scans are performed using dose optimization techniques as appropriate to the performed exam an d include at least one of the following: Automated exposure control, adjustment of the mA and/or kV according t o size, and the use of iterative reconstruction technique.
[2021-02-17] MEDS: PEPCID PO SCH (21:24)
[2021-02-17] MEDS: VISTARIL PO SCH (21:25)
[2021-02-17] MEDS: REQUIP PO SCH (21:25)
[2021-02-17] MEDS: ROCEPHIN 1 GM/50 ML D5W 1 GM/50 ML BAG IV SCH (21:25)
[2021-02-17] MEDS: ZITHROMAX 500 MG in SODIUM CHLORIDE 250 ML IV SCH (22:43)
[2021-02-17] MEDS: SYMBICORT 160-4.5 MCG INHALER IH SCH (22:44)
[2021-02-18] MEDS: ULTRAM PO PRN ×2 (00:05→10:43)
[2021-02-18 05:15] LABS: HEMATOCRIT 39.5 % (37.0-47.0); HEMOGLOBIN 12.7 g/dl (12.0-16.0); IMMATURE GRANULOCYTE % (AUTO) 0.4 % (0.0-5.0); LYMPHOCYTES # (AUTO) 0.9 K/uL (0.60-3.4); MEAN CORPUSCULAR HEMOGLOBIN 26.2 pg (27.0-31.0); MEAN CORPUSCULAR HGB CONC 32.2 (31.8-35.4); MEAN CORPUSCULAR VOLUME 81.6 fl (81.0-99.0); MONOCYTES # (AUTO) 0.2 K/uL (0.4-2.0); MONOCYTES % (AUTO) 5.6 (0-10); NEUTROPHILS # (AUTO) 1.6 K/ul (2.0-6.9); PLATELET COUNT 120 10^3/uL (140-440); RDW COEFFICIENT OF VARIATION 15.2 % (11.6-14.8); RED BLOOD COUNT 4.84 10^6/ul (4.20-5.40); WHITE BLOOD COUNT 2.68 K/ul (4.6-10.2)
[2021-02-18] MEDS: VENTOLIN HFA (PER PUFF-WITH SPACER) IH SCH ×3 (05:20→20:15)
[2021-02-18 05:31] LABS: ALANINE AMINOTRANSFERASE 21.8 U/L (0-35); ALBUMIN 3.93 g/dL (3.5-5.0); BILIRUBIN,TOTAL 0.22 mg/dL (0.2-1.3); BLOOD UREA NITROGEN 13.2 mg/dL (7-17); CALCIUM 8.51 mg/dL (8.4-10.2); CARBON DIOXIDE 25.5 mmol/L (22-30.0); CHLORIDE 106.4 mmol/L (98-107); CREATININE 0.54 mg/dL (0.60-1.30); POTASSIUM 3.42 mmol/L (3.5-5.1); SODIUM 142.6 mmol/L (134.5-145); TOTAL PROTEIN 6.84 g/dL (6.3-8.2)
[2021-02-18 05:33] LABS: PROTHROMBIN TIME 10.9 SEC (9.3-11.0)
[2021-02-18] MEDS: PEPCID PO SCH ×2 (05:35→17:12)
[2021-02-18 05:36] LABS: ABG O2 HGB 92.5 % (95-100); ABG PH 7.43 (7.35-7.45); BEecf -1.1 (-2.0-3.0); COHb 2.2 (0.5-1.5); HCO3 23.2 (21-28); MetHb 0.5 (0-1.5); TCO2 24.3 (19-24); sO2 91.7 % (94-98); tHb 12.5 g/dl (11.7-17.4)
[2021-02-18 05:55] LABS: TROPONIN I < 0.012 ng/ml (0.0000-0.120)
[2021-02-18] MEDS: SODIUM CHLORIDE 1,000 ML IV SCH ×2 (06:17→20:30)
[2021-02-18] MEDS ORDERED: ASPIRIN EC PO SCH (09:00)
[2021-02-18] MEDS ORDERED: ZINC-220 PO SCH (09:00)
[2021-02-18] MEDS ORDERED: VITAMIN D PO SCH (09:00)
[2021-02-18] MEDS ORDERED: DECADRON IVP SCH (09:00)
--- NOTE | 2021-02-18 09:15 | PCM.PROG ---
Attending Provider: ATTENDING PROVIDER: Dr. ALEAH SALES This patient is seen with Jayla Velasquez, Nurse Practitioner. DATE OF SERVICE: 02/18/21 SUBJECTIVE: This 85 year old /WHITE F was hospitalized 02/17/21. The patient is resting comfortably. She has been able to eat some. ABG slightly worse this morning. CT of chest did show bilateral pneumonia. The patient states she is feeling better today. REVIEW OF SYSTEMS: CONSTITUTIONAL: No night sweats. Fatigue. No fever or chills. Weakness. HEENT: Eyes: No visual changes. No eye pain. No eye discharge. ENT: No runny n ose. No epistaxis. No sinus pain. No odynophagia. No congestion. RESPIRATORY: Cough, no congestion. No hemoptysis. Shortness of breath. CARDIOVASCULAR: No angina symptoms. No CHF symptoms. No atypical chest pain for CAD. No palpitations. No orthopnea.. GASTROINTESTINAL: No abdominal pain. No nausea or vomiting. No diarrhea or constipation. No hematemesis. No hematochezia. GENITOURINARY: No urgency. No frequency. No dysuria. No hematuria. No obstructive symptoms. No discharge. No pain. No significant abnormal bleeding. MUSCULOSKELETAL: No musculoskeletal pain; no joint swelling. NEUROLOGICAL: Awake, alert, oriented to time, place and person. No headache. No neck pain. No syncope. No seizures. No dizziness. PSYCHIATRIC: Not anxious. No depression. No suicidal thoughts. No homicidal thoughts. SKIN: No rash. No lesions. No wounds. ENDOCRINE: No unexplained weight loss. No weight gain. HEMATOLOGIC/LYMPHATIC: No anemia. No purpura. No petechiae. No prolonged or excessive bleeding. No palpable lymph nodes. PHYSICAL EXAMINATION: GENERAL: The patient is awake, alert and oriented, lying in bed in no distress. VITAL SIGNS: Temperature 98 F, Pulse 58, Respiratory Rate 17, BP 136/70, Pulse Ox 98% HEENT: Head normocephalic, atraumatic. Eyes: Extraocular muscles are intact. Pupils are equal, round and reactive to light and accommodation. Ears: No lesions. Nose appeared normal. Throat: No exudate or erythema. NECK: Supple. No JVD, no carotid bruit. No lymphadenopathy or thyromegaly. LUNGS: Diminished breath sounds. Faint bilateral crackles. Clear to auscultation. Percussion note normal. Chest symmetrical. HEART: S1, S2, no S3. No murmurs. No cyanosis or clubbing. No ascites. Pulses: Dorsalis pedis and posterior tibial pulses +1 to +2 both sides. ABDOMEN: Soft. Non-tender. Bowel sounds active. No CVA tenderness. No mass felt. EXTREMITIES: No edema. Full range of motion of all extremities, equal. NEUROLOGIC: No focal deficit. Cranial nerves II through XII are grossly intact. No headache. No double vision. SKIN: Not dry. Intact. Turgor-normal. LYMPHATIC: No palpable lymph nodes/no lymphedema. MUSCULOSKELETAL: Normal joints with no swelling. Muscle tone is normal. LAB REVIEW: 02/18/21 04:55 02/18/21 04:55 02/18/21 05:20: Puncture Site Lrad, Base Excess -1.1, O2 Saturation 91.7 L, ABG pH 7.43, ABG pCO2 35.0, ABG pO2 61.0 L, ABG HCO3 23.2, ABG Total CO2 24.3 H, Primitivo Test Pos, Hemoglobin 0.5, Oxyhemoglobin 92.5 L, Carboxyhemoglobin 2.2 H, Total Hemoglobin 12.5, FiO2 % 21.0 02/18/21 04:55: Sodium 142.6, Potassium 3.42 L, Chloride 106.4, Carbon Dioxide 25.5, Anion Gap 14.12, BUN 13.2, Creatinine 0.54 L, Estimated GFR (MDRD) 107.00, BUN/Creatinine Ratio 24.44, Glucose 122.0 H, Calcium 8.51, Ferritin 126.00, Total Bilirubin 0.22, AST 32.0, ALT 21.8, Alkaline Phosphatase 67.0, Troponin I < 0.012, Total Protein 6.84, Albumin 3.93, Globulin 2.91, Albumin/Globulin Ratio 1.35 02/18/21 04:55: D-Dimer 758.57 H 02/18/21 04:55: PT 10.9, INR 1.05 02/18/21 04:55: WBC 2.68 L, RBC 4.84, Hgb 12.7, Hct 39.5, MCV 81.6, MCH 26.2 L, MCHC 32.2, RDW Coeff of Eulalia 15.2 H, Plt Count 120 L, Immature Gran % (Auto) 0.4, Neut % (Auto) 60.0, Lymph % (Auto) 34.0, [place] % (Auto) 5.6, Eos % (Auto) 0.0, Baso % (Auto) 0.0, Neut # (Auto) 1.6 L, Lymph # (Auto) 0.9, [place] # (Auto) 0.2 L, Eos # (Auto) 0.0, Baso # (Auto) 0.0, Immature Gran # (Auto) 0.0 02/17/21 16:30: Urine Color Yellow, Urine Clarity Clear, Urine pH 7.0, Ur Specific [place] 1.010, Urine Protein Negative, Urine Glucose (UA) Negative, Urine Ketones Trace H, Urine Blood Trace-intact H, Urine Nitrite Negative, Urine Bilirubin Negative, Urine Urobilinogen 0.2, Ur Leukocyte Esterase Negative, Urine Microscopic RBC 2-5, Urine Microscopic WBC 5-10, Ur Squamous Epith Cells 10-20 02/17/21 13:05: Puncture Site R brach, Base Excess 2.5, O2 Saturation 99.0 H, ABG pH 7.50 H, ABG pCO2 33.0 L, ABG pO2 122.0 H, ABG HCO3 25.7, ABG Total CO2 26.7 H, Primitivo Test Y, Hemoglobin 1.3, Oxyhemoglobin 94.7 L, Carboxyhemoglobin 2.8 H, Total Hemoglobin 13.0, Oxygen Liter Flow 21.00 02/17/21 12:40: Lactate Dehydrogenase 163 02/17/21 12:40: C-Reactive Prot, Quant 5 02/17/21 12:40: PT 10.3, INR 0.99 02/17/21 12:40: D-Dimer 958.76 H 02/17/21 12:40: Sodium 137.3, Potassium 3.36 L, Chloride 102.7, Carbon Dioxide 26.3, Anion Gap 11.66, BUN 10.2, Creatinine 0.61, Estimated GFR (MDRD) 93.00, BUN/Creatinine Ratio 16.72, Glucose 94.7, Calcium 8.75, Ferritin 119.00, Total Bilirubin 0.27, AST 32.3, ALT 17.5, Alkaline Phosphatase 72.6, Troponin I < 0.012, Total Protein 6.70, Albumin 3.86, Globulin 2.84, Albumin/Globulin Ratio 1.35 02/17/21 12:40: WBC 4.22 L, RBC 4.63, Hgb 12.4, Hct 37.3, MCV 80.6 L, MCH 26.8 L , MCHC 33.2, RDW Coeff of Eulalia 15.3 H, Plt Count 117 L, Immature Gran % (Auto) 0.2, Neut % (Auto) 58.1, Lymph % (Auto) 33.9, [place] % (Auto) 7.3, Eos % (Auto) 0.0, Baso % (Auto) 0.5, Neut # (Auto) 2.5, Lymph # (Auto) 1.4, [place] # (Auto) 0.3 L, Eos # (Auto) 0.0, Baso # (Auto) 0.0, Immature Gran # (Auto) 0.0 ASSESSMENT: Please see below. 1. COVID 19 pneumonia 2. Acute respiratory failure 3. Generalized weakness 4. Hypokalemia PLAN: 1. Continue Remdesivir 2. Discontinue Aspirin 3. Potassium 20meq daily Plan and coordination of the patient's care discussed in the presence of Stacker And Sorter Operator and nurse. SCRIBED BY: Felipe ALEJANDROist scribed while in presence of service performed by Dr. Sales/Jayla Velasquez APRN on 02/18/21 ([id number])
[2021-02-18] MEDS: CARDIZEM PO SCH ×2 (09:58→20:28)
[2021-02-18] MEDS: VITAMIN D PO SCH (09:58)
[2021-02-18] MEDS: ELIQUIS PO SCH ×2 (09:59→20:28)
[2021-02-18] MEDS: LIPITOR PO SCH (10:00)
[2021-02-18] MEDS: ZINC-220 PO SCH (10:00)
[2021-02-18] MEDS: DECADRON IVP SCH (10:00)
[2021-02-18] MEDS: SYMBICORT 160-4.5 MCG INHALER IH SCH ×2 (10:03→20:38)
[2021-02-18] MEDS: K-DUR PO SCH (11:17)
[2021-02-18] MEDS: VEKLURY 100 MG in SODIUM CHLORIDE 250 ML IV SCH (12:04)
[2021-02-18] MEDS: ROCEPHIN 1 GM/50 ML D5W 1 GM/50 ML BAG IV SCH (20:27)
[2021-02-18] MEDS: VISTARIL PO SCH (20:28)
[2021-02-18] MEDS: REQUIP PO SCH (20:28)
[2021-02-18] MEDS ORDERED: ATIVAN PO SCH (21:00)
[2021-02-18] MEDS: ZITHROMAX 500 MG in SODIUM CHLORIDE 250 ML IV SCH (21:36)
[2021-02-19 05:35] LABS: HEMATOCRIT 35.6 % (37.0-47.0); HEMOGLOBIN 11.7 g/dl (12.0-16.0); IMMATURE GRANULOCYTE % (AUTO) 0.3 % (0.0-5.0); LYMPHOCYTES # (AUTO) 1.1 K/uL (0.60-3.4); MEAN CORPUSCULAR HEMOGLOBIN 26.5 pg (27.0-31.0); MEAN CORPUSCULAR HGB CONC 32.9 (31.8-35.4); MEAN CORPUSCULAR VOLUME 80.7 fl (81.0-99.0); MONOCYTES # (AUTO) 0.3 K/uL (0.4-2.0); MONOCYTES % (AUTO) 5.4 (0-10); NEUTROPHILS # (AUTO) 4.4 K/ul (2.0-6.9); NEUTROPHILS % (AUTO) 75.3 % (42.2-75.2); PLATELET COUNT 138 10^3/uL (140-440); RDW COEFFICIENT OF VARIATION 15.1 % (11.6-14.8); RED BLOOD COUNT 4.41 10^6/ul (4.20-5.40)
[2021-02-19] MEDS: PEPCID PO SCH ×2 (05:38→16:34)
[2021-02-19 05:43] LABS: ALBUMIN 3.49 g/dL (3.5-5.0); ALKALINE PHOSPHATASE 56.5 U/L (53-141); ASPARTATE AMINO TRANSFERASE 29.6 U/L (14-36); BILIRUBIN,TOTAL 0.16 mg/dL (0.2-1.3); CALCIUM 9.06 mg/dL (8.4-10.2); CARBON DIOXIDE 21.7 mmol/L (22-30.0); CHLORIDE 111.5 mmol/L (98-107); CREATININE 0.59 mg/dL (0.60-1.30); GLUCOSE 172.4 mg/dL (74-106); POTASSIUM 3.48 mmol/L (3.5-5.1); SODIUM 143.7 mmol/L (134.5-145); TOTAL PROTEIN 6.18 g/dL (6.3-8.2)
[2021-02-19 05:44] LABS: ABG O2 HGB 94.7 % (95-100); BEecf 0.1 (-2.0-3.0); COHb 3.1 (0.5-1.5); HCO3 23.1 (21-28); sO2 98.3 % (94-98); tHb 12.3 g/dl (11.7-17.4)
[2021-02-19 05:46] LABS: ABG PH 7.51 (7.35-7.45)
[2021-02-19 05:49] LABS: PROTHROMBIN TIME 11.6 SEC (9.3-11.0)
[2021-02-19] MEDS: VENTOLIN HFA (PER PUFF-WITH SPACER) IH SCH ×3 (05:52→20:30)
[2021-02-19 06:07] LABS: TROPONIN I < 0.012 ng/ml (0.0000-0.120)
[2021-02-19 06:11] LABS: C-REACTIVE PROTEIN 6 mg/L (0-10)
[2021-02-19] MEDS: VITAMIN D PO SCH (09:28)
[2021-02-19] MEDS: DECADRON IVP SCH (09:28)
[2021-02-19] MEDS: LIPITOR PO SCH (09:29)
[2021-02-19] MEDS: ELIQUIS PO SCH ×2 (09:29→20:53)
[2021-02-19] MEDS: ZINC-220 PO SCH (09:29)
[2021-02-19] MEDS: K-DUR PO SCH (09:29)
[2021-02-19] MEDS: SYMBICORT 160-4.5 MCG INHALER IH SCH ×2 (09:44→21:04)
[2021-02-19] MEDS: VEKLURY 100 MG in SODIUM CHLORIDE 250 ML IV SCH (12:21)
[2021-02-19] MEDS: SODIUM CHLORIDE 1,000 ML IV SCH (12:25)
[2021-02-19] MEDS: ULTRAM PO PRN (13:46)
[2021-02-19] MEDS: ZITHROMAX 500 MG in SODIUM CHLORIDE 250 ML IV SCH (20:52)
[2021-02-19] MEDS: REQUIP PO SCH (20:52)
[2021-02-19] MEDS: CARDIZEM PO SCH (20:52)
[2021-02-19] MEDS: VISTARIL PO SCH (20:53)
[2021-02-19] MEDS ORDERED: ATIVAN PO SCH (21:00)
[2021-02-19] MEDS: ROCEPHIN 1 GM/50 ML D5W 1 GM/50 ML BAG IV SCH (23:34)
[2021-02-20] MEDS: ULTRAM PO PRN (00:08)
[2021-02-20] MEDS: VENTOLIN HFA (PER PUFF-WITH SPACER) IH SCH ×3 (04:40→20:05)
[2021-02-20] MEDS: SODIUM CHLORIDE 1,000 ML IV SCH ×3 (04:56→13:48)
[2021-02-20] MEDS: PEPCID PO SCH ×2 (05:43→16:18)
[2021-02-20 07:22] LABS: BASOPHILS % (AUTO) 0.1 % (0.0-3.0); HEMATOCRIT 38.1 % (37.0-47.0); HEMOGLOBIN 12.5 g/dl (12.0-16.0); IMMATURE GRANULOCYTE # (AUTO) 0.1 (0.0-1.0); IMMATURE GRANULOCYTE % (AUTO) 1.1 % (0.0-5.0); LYMPHOCYTES # (AUTO) 1.1 K/uL (0.60-3.4); LYMPHOCYTES % (AUTO) 15.8 (10.0-50.0); MEAN CORPUSCULAR HEMOGLOBIN 26.4 pg (27.0-31.0); MEAN CORPUSCULAR HGB CONC 32.8 (31.8-35.4); MEAN CORPUSCULAR VOLUME 80.4 fl (81.0-99.0); MONOCYTES # (AUTO) 0.3 K/uL (0.4-2.0); MONOCYTES % (AUTO) 4.7 (0-10); NEUTROPHILS # (AUTO) 5.6 K/ul (2.0-6.9); NEUTROPHILS % (AUTO) 78.3 % (42.2-75.2); PLATELET COUNT 152 10^3/uL (140-440); RDW COEFFICIENT OF VARIATION 15.3 % (11.6-14.8); RED BLOOD COUNT 4.74 10^6/ul (4.20-5.40); WHITE BLOOD COUNT 7.21 K/ul (4.6-10.2)
[2021-02-20 07:33] LABS: PROTHROMBIN TIME 12.7 SEC (9.3-11.0)
[2021-02-20 07:41] LABS: ALANINE AMINOTRANSFERASE 20.9 U/L (0-35); ALBUMIN 3.63 g/dL (3.5-5.0); ALKALINE PHOSPHATASE 59.5 U/L (53-141); ASPARTATE AMINO TRANSFERASE 32.3 U/L (14-36); BILIRUBIN,TOTAL 0.21 mg/dL (0.2-1.3); BLOOD UREA NITROGEN 14.2 mg/dL (7-17); CALCIUM 9.06 mg/dL (8.4-10.2); CARBON DIOXIDE 25.8 mmol/L (22-30.0); CHLORIDE 107.1 mmol/L (98-107); CREATININE 0.53 mg/dL (0.60-1.30); SODIUM 141.5 mmol/L (134.5-145); TOTAL PROTEIN 6.17 g/dL (6.3-8.2)
[2021-02-20 08:21] LABS: ABG PH 7.54 (7.35-7.45); BEecf 1.4 (-2.0-3.0)
[2021-02-20 08:22] LABS: ABG O2 HGB 96.8 % (95-100); COHb 1.3 (0.5-1.5); HCO3 23.9 (21-28); MetHb 1.2 (0-1.5); TCO2 24.8 (19-24); sO2 99.5 % (94-98); tHb 13.8 g/dl (11.7-17.4)
[2021-02-20] MEDS: VITAMIN D PO SCH (09:07)
[2021-02-20] MEDS: LIPITOR PO SCH (09:07)
[2021-02-20] MEDS: ELIQUIS PO SCH ×2 (09:08→20:31)
[2021-02-20] MEDS: CARDIZEM PO SCH ×3 (09:08→20:30)
[2021-02-20] MEDS: ZINC-220 PO SCH (09:08)
[2021-02-20] MEDS: DECADRON IVP SCH (09:08)
[2021-02-20] MEDS: K-DUR PO SCH ×3 (09:08→16:18)
[2021-02-20] MEDS: COZAAR PO SCH ×2 (09:11→20:31)
[2021-02-20] MEDS: SYMBICORT 160-4.5 MCG INHALER IH SCH ×2 (09:13→21:01)
--- NOTE | 2021-02-20 09:46 | PCM.PROG ---
Attending Provider: ATTENDING PROVIDER: Dr. ALEAH SALES This patient is seen with Jayla Velasquez, Nurse Practitioner. DATE OF SERVICE: 02/20/21 SUBJECTIVE: This 85 year old /WHITE F was hospitalized 02/17/21. The patient is eating well. Denies shortness of breath. Only slight cough. No fever. States she is feeling much better. REVIEW OF SYSTEMS: CONSTITUTIONAL: No night sweats. Fatigue. No fever or chills. HEENT: Eyes: No visual changes. No eye pain. No eye discharge. ENT: No runny nose. No epistaxis. No sinus pain. No odynophagia. No congestion. RESPIRATORY: No cough, no congestion. No hemoptysis. No shortness of breath. CARDIOVASCULAR: No angina symptoms. No CHF symptoms. No atypical chest pain for CAD. No palpitations. No orthopnea.. GASTROINTESTINAL: No abdominal pain. No nausea or vomiting. No diarrhea or constipation. No hematemesis. No hematochezia. GENITOURINARY: No urgency. No frequency. No dysuria. No hematuria. No obstructive symptoms. No discharge. No pain. No significant abnormal bleeding. MUSCULOSKELETAL: No musculoskeletal pain; no joint swelling. NEUROLOGICAL: Awake, alert, oriented to time, place and person. No headache. No neck pain. No syncope. No seizures. No dizziness. PSYCHIATRIC: Not anxious. No depression. No suicidal thoughts. No homicidal thoughts. SKIN: No rash. No lesions. No wounds. ENDOCRINE: No unexplained weight loss. No weight gain. HEMATOLOGIC/LYMPHATIC: No anemia. No purpura. No petechiae. No prolonged or ex cessive bleeding. No palpable lymph nodes. PHYSICAL EXAMINATION: GENERAL: The patient is awake, alert and oriented, lying in bed in no distress. VITAL SIGNS: Temperature 97.9 F, Pulse 48, Respiratory Rate 18, BP 160/63, Pulse Ox 98% HEENT: Head normocephalic, atraumatic. Eyes: Extraocular muscles are intact. Pupils are equal, round and reactive to light and accommodation. Ears: No lesions. Nose appeared normal. Throat: No exudate or erythema. NECK: Supple. No JVD, no carotid bruit. No lymphadenopathy or thyromegaly. LUNGS: Diminished breath sound. Clear to auscultation. Percussion note normal. Chest symmetrical. HEART: S1, S2, no S3. No murmurs. No cyanosis or clubbing. No ascites. Pulses: Dorsalis pedis and posterior tibial pulses +1 to +2 both sides. ABDOMEN: Soft. Non-tender. Bowel sounds active. No CVA tenderness. No mass felt. EXTREMITIES: No edema. Full range of motion of all extremities, equal. NEUROLOGIC: No focal deficit. Cranial nerves II through XII are grossly intact. No headache. No double vision. SKIN: Not dry. Intact. Turgor-normal. LYMPHATIC: No palpable lymph nodes/no lymphedema. MUSCULOSKELETAL: Normal joints with no swelling. Muscle tone is normal. LAB REVIEW: 02/20/21 06:50 02/20/21 06:50 02/20/21 08:11: Puncture Site R rad, Base Excess 1.4, O2 Saturation 99.5 H, ABG pH 7.54 H*, ABG pCO2 28.0 L, ABG pO2 152.0 H, ABG HCO3 23.9, ABG Total CO2 24.8 H, Primitivo Test +, Hemoglobin 1.2, Oxyhemoglobin 96.8, Carboxyhemoglobin 1.3, Total Hemoglobin 13.8, O2 Delivery Device Nc, Oxygen Liter Flow 2.00 02/20/21 06:50: Sodium 141.5, Potassium 3.00 L, Chloride 107.1 H, Carbon Dioxide 25.8, Anion Gap 11.60, BUN 14.2, Creatinine 0.53 L, Estimated GFR (MDRD) 110.00, BUN/Creatinine Ratio 26.79, Glucose 152.0 H, Calcium 9.06, Ferritin 137.00, Total Bilirubin 0.21, AST 32.3, ALT 20.9, Alkaline Phosphatase 59.5, Total Protein 6.17 L, Albumin 3.63, Globulin 2.54, Albumin/Globulin Ratio 1.42 02/20/21 06:50: WBC 7.21, RBC 4.74, Hgb 12.5, Hct 38.1, MCV 80.4 L, MCH 26.4 L, MCHC 32.8, RDW Coeff of Eulalia 15.3 H, Plt Count 152, Immature Gran % (Auto) 1.1, Neut % (Auto) 78.3 H, Lymph % (Auto) 15.8, [place] % (Auto) 4.7, Eos % (Auto) 0.0, Baso % (Auto) 0.1, Neut # (Auto) 5.6, Lymph # (Auto) 1.1, [place] # (Auto) 0.3 L, Eos # (Auto) 0.0, Baso # (Auto) 0.0, Immature Gran # (Auto) 0.1 02/20/21 06:50: PT 12.7 H, INR 1.23 02/19/21 05:22: C-Reactive Prot, Quant < 1 ASSESSMENT: Please see below. 1. COVID 19 pneumonia 2. Hypokalemia 3. Generalized weakness 4. Asymptomatic bradycardia 5. Hypertension PLAN: 1. Decrease IV fluids KVO 2. Potassium 20mg TID 3. Losartan 50mg BID 4. Discontinue Ativan 5. Trazodone 25mg at night Plan and coordination of the patient's care discussed in the presence of Pilot Manager and nurse. SCRIBED BY: ZAHRA JC Retail Salesman scribed while in presence of service performed by Dr. Sales/Jayla Velasquez APRN on 02/20/21 ([id number])
[2021-02-20] MEDS: VEKLURY 100 MG in SODIUM CHLORIDE 250 ML IV SCH (12:01)
--- NOTE | 2021-02-20 12:39 | PN ---
DATE OF SERVICE: 02/17/2021 SUBJECTIVE: The patient was seen and examined with the Nurse Practitioner. History and Physical was done and supervised. The management was also planned out. The patient was seen by me in Special [facility]. Physical exam practically unremarkable except for the patient's skin was dry and skin turgor was poor. She looked dehydrated and worn out. TIME SPENT: More than 30 minutes. Plan and coordination of the patient's care discussed in the presence of nurse. JOSHUA
--- NOTE | 2021-02-20 13:16 | PN ---
DATE OF SERVICE: 02/18/2021 SUBJECTIVE: The patient was seen and examined with the Nurse Practitioner. The patient has COVID pneumonia and her condition seems to have improved. She is feeling better. Hydration status has improved. Skin turgor is a lot better. The patient is on multiple antibiotics and steroids. TIME SPENT: More than 30 minutes. Plan and coordination of the patient's care discussed in the presence of nurse. JOSHUA
--- NOTE | 2021-02-20 13:41 | PN ---
DATE OF SERVICE: 02/19/2021 SUBJECTIVE: 85 year old white female hospitalized with COVID positive pneumonia. The patient's condition steadily has improved. She is feeling better. Appetite has improved. REVIEW OF SYSTEMS: CONSTITUTIONAL: No night sweats. No fever or chills. Weak, fatigue and tired. HEENT: Eyes: No visual changes. No eye pain. No eye discharge. ENT: No runny nose. No epistaxis. No sinus pain. No sore throat. No odynophagia. No congestion. RESPIRATORY: No cough, no congestion. No hemoptysis. No shortness of breath. CARDIOVASCULAR: No angina symptoms. No CHF symptoms. No atypical chest pain for CAD. No palpitations. No PND. No orthopnea. GASTROINTESTINAL: No abdominal pain. No nausea or vomiting. No diarrhea or constipation. No hematemesis. No hematochezia. Appetite improving. GENITOURINARY: No urgency. No frequency. No dysuria. No hematuria. No obstructive symptoms. No discharge. No pain. No significant abnormal bleeding. MUSCULOSKELETAL: No musculoskeletal pain; no joint swelling. NEUROLOGICAL: No headache. No neck pain. No syncope. No seizures. No dizziness. PSYCHIATRIC: Not anxious. No depression. No suicidal thoughts. No homicidal thoughts. SKIN: No rash. No lesions. No wounds. ENDOCRINE: No unexplained weight loss. No weight gain. HEMATOLOGIC/LYMPHATIC: No anemia. No purpura. No petechiae. No prolonged or excessive bleeding. No palpable lymph nodes. PHYSICAL EXAMINATION: VITAL SIGNS: Temperature 97.8, pulse 62, respiratory rate 14, blood pressure 134/40 and pulse ox 98% on 2 liters. HEENT: Head normocephalic, atraumatic. Eyes: Extraocular muscles are intact. Pupils are equal, round and reactive to light and accommodation. Ears: No lesions. Nose appeared normal. Throat: No exudate or erythema. NECK: Supple. No JVD, no carotid bruit. No lymphadenopathy or thyromegaly. LUNGS: Decreased breath sounds but clear to auscultation. Percussion note normal. Chest symmetrical. HEART: S1, S2, no S3. No murmurs. No cyanosis or clubbing. No ascites. Pulses: Dorsalis pedis and posterior tibial pulses +1 to +2 bilaterally. ABDOMEN: Soft. Nontender. Bowel sounds active. No CVA tenderness. No mass felt. EXTREMITIES: No edema. Full range of motion of all extremities, equal. NEUROLOGIC: No focal deficit. Cranial nerves II through XII are grossly intact. No headache. No double vision. SKIN: Not dry. Intact. Turgor - normal. LYMPHATIC: No palpable lymph nodes/no lymphedema. MUSCULOSKELETAL: Normal joints with no swelling. Muscle tone is normal. LABS: pO2 99, pCO2 29, PH 7.51 saturation 98%. Fi02 21%. GFR is 97 cc per minute ASSESSMENT: 1. COVID 19 pneumonia seems to be resolving 2. Mild hypokalemia PLAN: 1. The patient is on antibiotics Rocephin, Zithromax and Ramdesivir 2. The patient is on Potassium supplement 3. The patient had too much of Ativan so makes her drowsy so we will cut down the Ativan at 0.5mg at night. 4. The patient had Bradycardia with rate of 35 per minute so the Cardizem has been cut down to 30mg PO twice a day CONDITION: Stable. TIME SPENT: More than 30 minutes. Plan and coordination of the patient's care discussed in the presence of nurse. JOSHUA
[2021-02-20] MEDS: DESYREL PO SCH (20:30)
[2021-02-20] MEDS: VISTARIL PO SCH (20:30)
[2021-02-20] MEDS: ROCEPHIN 1 GM/50 ML D5W 1 GM/50 ML BAG IV SCH (20:30)
[2021-02-20] MEDS: REQUIP PO SCH (20:30)
[2021-02-21] MEDS: VENTOLIN HFA (PER PUFF-WITH SPACER) IH SCH ×3 (04:40→19:10)
[2021-02-21 04:50] LABS: ABG PH 7.45 (7.35-7.45); BEecf -0.4 (-2.0-3.0); COHb 1.5 (0.5-1.5); HCO3 23.6 (21-28)
[2021-02-21 04:51] LABS: ABG O2 HGB 94.1 % (95-100); MetHb 1 (0-1.5); TCO2 24.6 (19-24); sO2 95.4 % (94-98); tHb 19.8 g/dl (11.7-17.4)
[2021-02-21 05:41] LABS: BASOPHILS % (AUTO) 0.3 % (0.0-3.0); HEMATOCRIT 41.7 % (37.0-47.0); HEMOGLOBIN 13.8 g/dl (12.0-16.0); IMMATURE GRANULOCYTE # (AUTO) 0.2 (0.0-1.0); IMMATURE GRANULOCYTE % (AUTO) 2.2 % (0.0-5.0); LYMPHOCYTES % (AUTO) 14.9 (10.0-50.0); MEAN CORPUSCULAR HEMOGLOBIN 26.8 pg (27.0-31.0); MEAN CORPUSCULAR HGB CONC 33.1 (31.8-35.4); MONOCYTES # (AUTO) 0.4 K/uL (0.4-2.0); MONOCYTES % (AUTO) 5.8 (0-10); NEUTROPHILS # (AUTO) 5.3 K/ul (2.0-6.9); NEUTROPHILS % (AUTO) 76.8 % (42.2-75.2); PLATELET COUNT 191 10^3/uL (140-440); RDW COEFFICIENT OF VARIATION 15.5 % (11.6-14.8); RED BLOOD COUNT 5.15 10^6/ul (4.20-5.40); WHITE BLOOD COUNT 6.93 K/ul (4.6-10.2)
[2021-02-21] MEDS: PEPCID PO SCH ×2 (05:45→16:20)
[2021-02-21 06:01] LABS: ALANINE AMINOTRANSFERASE 26.3 U/L (0-35); ALBUMIN 4.06 g/dL (3.5-5.0); ALKALINE PHOSPHATASE 67.5 U/L (53-141); ASPARTATE AMINO TRANSFERASE 30.1 U/L (14-36); BILIRUBIN,TOTAL 0.26 mg/dL (0.2-1.3); BLOOD UREA NITROGEN 18.3 mg/dL (7-17); CALCIUM 9.56 mg/dL (8.4-10.2); CARBON DIOXIDE 26.5 mmol/L (22-30.0); CHLORIDE 106.3 mmol/L (98-107); CREATININE 0.68 mg/dL (0.60-1.30); GLUCOSE 159.2 mg/dL (74-106); POTASSIUM 3.32 mmol/L (3.5-5.1); SODIUM 145.3 mmol/L (134.5-145); TOTAL PROTEIN 6.97 g/dL (6.3-8.2)
[2021-02-21 06:06] LABS: PROTHROMBIN TIME 12.4 SEC (9.3-11.0)
[2021-02-21] MEDS: COZAAR PO SCH ×2 (08:54→20:17)
[2021-02-21] MEDS: K-DUR PO SCH ×3 (08:54→16:20)
[2021-02-21] MEDS: LIPITOR PO SCH (08:54)
[2021-02-21] MEDS: ELIQUIS PO SCH ×2 (08:54→20:16)
[2021-02-21] MEDS: VITAMIN D PO SCH (08:54)
[2021-02-21] MEDS: ZINC-220 PO SCH (08:55)
[2021-02-21] MEDS: DECADRON IVP SCH (08:55)
[2021-02-21] MEDS: CARDIZEM PO SCH ×2 (08:55→20:19)
[2021-02-21] MEDS: SYMBICORT 160-4.5 MCG INHALER IH SCH ×2 (08:59→20:21)
--- NOTE | 2021-02-21 09:17 | PCM.PROG ---
Attending Provider: ATTENDING PROVIDER: Dr. ALEAH SALES DATE OF SERVICE: 02/21/21 SUBJECTIVE: This 85 year old /WHITE F was hospitalized 02/17/21 with COVID pneumonia. The patient's condition has improved remarkably on Remdesivir, steroids and antibiotics. Appetite has improved. No nausea or vomiting. No PND or orthopnea. REVIEW OF SYSTEMS: CONSTITUTIONAL: No night sweats. No fatigue, malaise, lethargy. No fever or chills. HEENT: Eyes: No visual changes. No eye pain. No eye discharge. ENT: No runny nose. No epistaxis. No sinus pain. No odynophagia. No congestion. RESPIRATORY: No cough, no congestion. No hemoptysis. No shortness of breath. CARDIOVASCULAR: No angina symptoms. No CHF symptoms. No atypical chest pain for CAD. No palpitations. No orthopnea.. GASTROINTESTINAL: No abdominal pain. No nausea or vomiting. No diarrhea or constipation. No hematemesis. No hematochezia. GENITOURINARY: No urgency. No frequency. No dysuria. No hematuria. No obstructive symptoms. No discharge. No pain. No significant abnormal bleeding. MUSCULOSKELETAL: No musculoskeletal pain; no joint swelling. NEUROLOGICAL: Awake, alert, oriented to time, place and person. No headache. No neck pain. No syncope. No seizures. No dizziness. PSYCHIATRIC: Not anxious. No depression. No suicidal thoughts. No homicidal thoughts. SKIN: No rash. No lesions. No wounds. ENDOCRINE: No unexplained weight loss. No weight gain. HEMATOLOGIC/LYMPHATIC: No anemia. No purpura. No petechiae. No prolonged or excessive bleeding. No palpable lymph nodes. PHYSICAL EXAMINATION: GENERAL: The patient is awake, alert and oriented, lying in bed in no distress. VITAL SIGNS: Temperature 98.3 F, Pulse 63, Respiratory Rate 16, BP 141/55, Pulse Ox 96% HEENT: Head normocephalic, atraumatic. Eyes: Extraocular muscles are intact. Pupils are equal, round and reactive to light and accommodation. Ears: No lesions. Nose appeared normal. Throat: No exudate or erythema. NECK: Supple. No JVD, no carotid bruit. No lymphadenopathy or thyromegaly. LUNGS: Clear to auscultation. Percussion note normal. Chest symmetrical. HEART: S1, S2, no S3. No murmurs. No cyanosis or clubbing. No ascites. Pulses: Dorsalis pedis and posterior tibial pulses +1 to +2 both sides. ABDOMEN: Soft. Non-tender. Bowel sounds active. No CVA tenderness. No mass felt. EXTREMITIES: No edema. Full range of motion of all extremities, equal. NEUROLOGIC: No focal deficit. Cranial nerves II through XII are grossly intact. No headache, no double vision or headache. SKIN: Warm and dry. Intact. Turgor-normal. LYMPHATIC: No palpable lymph nodes/no lymphedema. MUSCULOSKELETAL: Normal joints with no swelling. Muscle tone is normal. LAB REVIEW: 02/21/21 05:05 02/21/21 05:05 02/21/21 05:05: Sodium 145.3 H, Potassium 3.32 L, Chloride 106.3, Carbon Dioxide 26.5, Anion Gap 15.82, BUN 18.3 H, Creatinine 0.68, Estimated GFR (MDRD) 82.00, BUN/Creatinine Ratio 26.91, Glucose 159.2 H, Calcium 9.56, Ferritin 150.00, Total Bilirubin 0.26, AST 30.1, ALT 26.3, Alkaline Phosphatase 67.5, Total Protein 6.97, Albumin 4.06, Globulin 2.91, Albumin/Globulin Ratio 1.39 02/21/21 05:05: WBC 6.93, RBC 5.15, Hgb 13.8, Hct 41.7, MCV 81.0, MCH 26.8 L, MCHC 33.1, RDW Coeff of Eulalia 15.5 H, Plt Count 191, Immature Gran % (Auto) 2.2, Neut % (Auto) 76.8 H, Lymph % (Auto) 14.9, [place] % (Auto) 5.8, Eos % (Auto) 0.0, Baso % (Auto) 0.3, Neut # (Auto) 5.3, Lymph # (Auto) 1.0, [place] # (Auto) 0.4, Eos # (Auto) 0.0, Baso # (Auto) 0.0, Immature Gran # (Auto) 0.2 02/21/21 05:05: PT 12.4 H, INR 1.20 02/21/21 03:15: Puncture Site Rrad, Base Excess -0.4, O2 Saturation 95.4, ABG pH 7.45, ABG pCO2 34.0 L, ABG pO2 74.0 L, ABG HCO3 23.6, ABG Total CO2 24.6 H, Primitivo Test +, Hemoglobin 1, Oxyhemoglobin 94.1 L, Carboxyhemoglobin 1.5, Total Hemoglobin 19.8 H, FiO2 % 21.0 02/20/21 06:50: Lactate Dehydrogenase 199 ASSESSMENT: Please see below. 1. COVID pneumonia, resolved PLAN: 1. Continue the same treatment today. 2. Last dose of Remdesvir 3. Quarantine is over today. Transfer tomorrow to the floor and hopefully discharge 4. Still has hypokalemia being treated with K-Tab 20meq three times a day 5. Will continue to monitor Potassium level Plan and coordination of the patient's care discussed in the presence of Cashier Courtesy Booth and nurse. CONDITION: Stable SCRIBED BY: ZAHRA JC Diabetes Education Coordinator scribed while in presence of service performed by Dr. ALEAH SALES on 02/21/21 ([id number])
[2021-02-21] MEDS: SODIUM CHLORIDE 1,000 ML IV SCH (11:04)
[2021-02-21] MEDS: OMNICEF PO SCH ×2 (11:04→20:17)
[2021-02-21] MEDS: VEKLURY 100 MG in SODIUM CHLORIDE 250 ML IV SCH (11:06)
--- NOTE | 2021-02-21 12:50 | HP ---
DATE OF SERVICE: 02/17/2021 REASON FOR HOSPITALIZATION/HISTORY OF PRESENT ILLNESS: COVID positive 02/14/2021. Unable to eat, weak, coughing, fever and aching all over. PAST MEDICAL HISTORY/PAST SURGICAL HISTORY: Hypertension Dyslipidemia Anemia B12 deficiency GERD Left eye melanoma REVIEW OF SYSTEMS: CONSTITUTIONAL: Fever, Fatigue. HEENT: Sinus drainage, no sore throat. RESPIRATORY: Cough, no congestion. CARDIOVASCULAR: No atypical chest pain for coronary artery disease. No angina, CHF symptoms, palpitations. Shortness of breath. GASTROINTESTINAL: No melena or abdominal pain. No GERD. GENITOURINARY: No hematuria, no prostatism, no polyuria. IRONER MACHINE: No blackout, no dizziness, no headache, no double vision. GAIT: Unsteady MUSCULOSKELETAL: Osteoarthritis pain, no joint swelling. ENDOCRINE: No weight loss, no weight gain. SKIN: Not dry, no rash. PSYCHIATRIC: Not anxious, no depression, no suicidal thoughts, no homicidal thoughts. SOCIAL HISTORY: Marital Status: . Alcohol Usage: No. Tobacco Usage: no. FAMILY HISTORY: Father Mother MEDICATIONS: K tab 10mg daily Lasix 20mg daily Lipitor 20mg daily Tramadol 50mg BID Requip 0.25mg QHS Cardizem 60mg BID Symbicort inhaler BID Vistaril 25mg HS Tylenol 650mg TID PRN Aspirin 81mg PO daily O2 2 liters nasal canula. ALLERGIES: Flu shot PHYSICAL EXAMINATION: GENERAL APPEARANCE: Oriented times three. HEENT: Normal. NECK: No JVP, no bruits. RESPIRATORY: Lungs are clear. CARDIOVASCULAR: S1, S2, no S3, no murmur. No cyanosis, clubbing. No ascites. GI/ABDOMEN: No tenderness. Bowel sounds are active. EXTREMITIES: edema, pulses +1, equal. IRONER MACHINE: Deep tendon reflexes, sensory, motor and gait all normal. RECTAL: 2007 refused repeat/PELVIC: 03/06 refused. ASSESSMENT: 1. COVID 19 positive 2. Dehydration 3. Shortness of breath 4. Dyslipidemia 5. Hypertension 6. Chronic anemia 7. Hyperglycemia 8. B12 deficiency 9. 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 PACS 14. PVCS 15.GERD 16.Detached retina 03/15_Dr. Bahena 17.Dependent leg edema 18.Left eye melanoma 02/12-Mendez Noguera PLAN: 1. Admit to special care-COVID precautions 2. CBC and CMP now and daily 3. ABG on room air now 4. CT chest with and without now 5. Normal saline at 75 cc an hour 6. 6mg Decadron IV daily 7. Pepcid 40mg BID PO 8. Vitamin D 500 daily PO 9. Zithromax 500mg IV daily times three days 10.Rocephin 1 gram IV daily 11.The patient is a DNR 12.O2 as needed 13.Zinc 220mg PO daily 14.Start Remdesivir daily 15.COVID order set 16.Regular diet 17.U/A 18.Blood cultures times two TIME SPENT: More than 70 minutes. MTDD
[2021-02-21] MEDS ORDERED: ZOFRAN 4 MG/2 ML IVP ONE (14:57)
[2021-02-21] MEDS ORDERED: PHENERGAN 25 MG/ML VIAL ONE (16:15)
[2021-02-21] MEDS: PHENERGAN 25 MG/ML VIAL 25 MG in SODIUM CHLORIDE 50 ML IV PRN (16:30)
[2021-02-21] MEDS: VISTARIL PO SCH (20:16)
[2021-02-21] MEDS: REQUIP PO SCH (20:17)
[2021-02-21] MEDS: DESYREL PO SCH (20:17)
[2021-02-21] MEDS: ULTRAM PO PRN (21:19)
[2021-02-22] MEDS: VENTOLIN HFA (PER PUFF-WITH SPACER) IH SCH ×3 (04:50→20:10)
[2021-02-22] MEDS: PEPCID PO SCH ×2 (06:09→16:25)
[2021-02-22 08:17] LABS: C-REACTIVE PROTEIN < 1 mg/L (0-10)
[2021-02-22] MEDS ORDERED: PHENERGAN 25 MG/ML VIAL ONE (09:19)
[2021-02-22] MEDS: OMNICEF PO SCH ×2 (09:25→20:22)
[2021-02-22] MEDS: COZAAR PO SCH ×2 (09:25→20:22)
[2021-02-22] MEDS: ZINC-220 PO SCH (09:25)
[2021-02-22] MEDS: VITAMIN D PO SCH (09:25)
[2021-02-22] MEDS: LIPITOR PO SCH (09:25)
[2021-02-22] MEDS: PHENERGAN 25 MG/ML VIAL 25 MG in SODIUM CHLORIDE 50 ML IV PRN (09:26)
[2021-02-22] MEDS: K-DUR PO SCH ×3 (09:26→16:25)
[2021-02-22] MEDS: DECADRON IVP SCH (09:26)
[2021-02-22] MEDS: CARDIZEM PO SCH (09:26)
[2021-02-22] MEDS: ELIQUIS PO SCH ×2 (09:28→20:23)
[2021-02-22] MEDS: SYMBICORT 160-4.5 MCG INHALER IH SCH ×2 (09:35→20:31)
[2021-02-22] MEDS: VISTARIL PO SCH (20:22)
[2021-02-22] MEDS: DESYREL PO SCH (20:22)
[2021-02-22] MEDS: REQUIP PO SCH (20:22)
[2021-02-23] MEDS: VENTOLIN HFA (PER PUFF-WITH SPACER) IH SCH ×3 (04:55→19:55)
[2021-02-23] MEDS: PEPCID PO SCH ×2 (05:47→17:11)
[2021-02-23 06:42] LABS: BASOPHILS % (AUTO) 0.2 % (0.0-3.0); HEMATOCRIT 38.7 % (37.0-47.0); HEMOGLOBIN 13.1 g/dl (12.0-16.0); IMMATURE GRANULOCYTE # (AUTO) 0.4 (0.0-1.0); IMMATURE GRANULOCYTE % (AUTO) 4.6 % (0.0-5.0); LYMPHOCYTES % (AUTO) 11.6 (10.0-50.0); MEAN CORPUSCULAR HEMOGLOBIN 26.8 pg (27.0-31.0); MEAN CORPUSCULAR HGB CONC 33.9 (31.8-35.4); MEAN CORPUSCULAR VOLUME 79.1 fl (81.0-99.0); MONOCYTES # (AUTO) 0.6 K/uL (0.4-2.0); MONOCYTES % (AUTO) 6.5 (0-10); NEUTROPHILS # (AUTO) 6.6 K/ul (2.0-6.9); NEUTROPHILS % (AUTO) 77.1 % (42.2-75.2); PLATELET COUNT 221 10^3/uL (140-440); RDW COEFFICIENT OF VARIATION 15.9 % (11.6-14.8); RED BLOOD COUNT 4.89 10^6/ul (4.20-5.40); WHITE BLOOD COUNT 8.52 K/ul (4.6-10.2)
[2021-02-23 07:11] LABS: ALBUMIN 3.58 g/dL (3.5-5.0); ALKALINE PHOSPHATASE 59.8 U/L (53-141); ASPARTATE AMINO TRANSFERASE 20.2 U/L (14-36); BILIRUBIN,TOTAL 0.51 mg/dL (0.2-1.3); BLOOD UREA NITROGEN 26.1 mg/dL (7-17); CALCIUM 9.19 mg/dL (8.4-10.2); CARBON DIOXIDE 20.8 mmol/L (22-30.0); CHLORIDE 107.7 mmol/L (98-107); CREATININE 0.69 mg/dL (0.60-1.30); POTASSIUM 4.35 mmol/L (3.5-5.1); SODIUM 138.2 mmol/L (134.5-145); TOTAL PROTEIN 6.26 g/dL (6.3-8.2)
[2021-02-23] MEDS: VITAMIN D PO SCH (08:54)
[2021-02-23] MEDS: SYMBICORT 160-4.5 MCG INHALER IH SCH ×2 (08:54→20:14)
[2021-02-23] MEDS: OMNICEF PO SCH ×2 (08:54→20:09)
[2021-02-23] MEDS: COZAAR PO SCH ×2 (08:54→20:08)
[2021-02-23] MEDS: K-DUR PO SCH ×3 (08:54→17:11)
[2021-02-23] MEDS: ZINC-220 PO SCH (08:54)
[2021-02-23] MEDS: LIPITOR PO SCH (08:55)
[2021-02-23] MEDS: ELIQUIS PO SCH ×2 (08:55→20:09)
[2021-02-23] MEDS: DECADRON IVP SCH (10:29)
[2021-02-23] MEDS ORDERED: PHENERGAN 25 MG/ML VIAL ONE (15:51)
[2021-02-23] MEDS: ULTRAM PO PRN (16:29)
[2021-02-23] MEDS: PHENERGAN 25 MG/ML VIAL 25 MG in SODIUM CHLORIDE 50 ML IV PRN (16:29)
[2021-02-23] MEDS: REQUIP PO SCH (20:08)
[2021-02-23] MEDS: VISTARIL PO SCH (20:08)
[2021-02-23] MEDS: DESYREL PO SCH (20:08)
[2021-02-24] MEDS: VENTOLIN HFA (PER PUFF-WITH SPACER) IH SCH (04:35)
[2021-02-24 05:11] VITALS: BP 133/54; TEMP 97.3
[2021-02-24] MEDS: PEPCID PO SCH (05:30)
[2021-02-24 05:31] LABS: BASOPHILS % (AUTO) 0.4 % (0.0-3.0); HEMATOCRIT 40.1 % (37.0-47.0); HEMOGLOBIN 13.5 g/dl (12.0-16.0); IMMATURE GRANULOCYTE # (AUTO) 0.4 (0.0-1.0); IMMATURE GRANULOCYTE % (AUTO) 4.1 % (0.0-5.0); LYMPHOCYTES # (AUTO) 1.2 K/uL (0.60-3.4); LYMPHOCYTES % (AUTO) 12.1 (10.0-50.0); MEAN CORPUSCULAR HEMOGLOBIN 26.8 pg (27.0-31.0); MEAN CORPUSCULAR HGB CONC 33.7 (31.8-35.4); MEAN CORPUSCULAR VOLUME 79.6 fl (81.0-99.0); MONOCYTES # (AUTO) 0.6 K/uL (0.4-2.0); MONOCYTES % (AUTO) 6.3 (0-10); NEUTROPHILS # (AUTO) 7.3 K/ul (2.0-6.9); NEUTROPHILS % (AUTO) 77.1 % (42.2-75.2); PLATELET COUNT 233 10^3/uL (140-440); RED BLOOD COUNT 5.04 10^6/ul (4.20-5.40)
[2021-02-24 05:45] LABS: ALBUMIN 3.61 g/dL (3.5-5.0); ALKALINE PHOSPHATASE 58.8 U/L (53-141); ASPARTATE AMINO TRANSFERASE 18.6 U/L (14-36); BILIRUBIN,TOTAL 0.51 mg/dL (0.2-1.3); BLOOD UREA NITROGEN 28.2 mg/dL (7-17); CALCIUM 9.1 mg/dL (8.4-10.2); CREATININE 0.73 mg/dL (0.60-1.30); POTASSIUM 4.72 mmol/L (3.5-5.1); SODIUM 137.9 mmol/L (134.5-145); TOTAL PROTEIN 6.35 g/dL (6.3-8.2)
[2021-02-24] MEDS: K-DUR PO SCH (08:30)
[2021-02-24] MEDS ORDERED: OMNICEF PO SCH (09:00)
--- NOTE | 2021-02-24 09:16 | PCM.PROG ---
Attending Provider: ATTENDING PROVIDER: Dr. ALEAH SALES This patient is seen with Jayla Velasquez, Nurse Practitioner. DATE OF SERVICE: 02/24/21 SUBJECTIVE: This 85 year old /WHITE F was hospitalized 02/17/21. The patient has been eating moderately well. No fever. Her cough has improved. States that she is ready to go home. REVIEW OF SYSTEMS: CONSTITUTIONAL: No night sweats. Fatigue. No fever or chills. HEENT: Eyes: No visual changes. No eye pain. No eye discharge. ENT: No runny nose. No epistaxis. No sinus pain. No odynophagia. No congestion. RESPIRATORY: No cough, no congestion. No hemoptysis. No shortness of breath. CARDIOVASCULAR: No angina symptoms. No CHF symptoms. No atypical chest pain for CAD. No palpitations. No orthopnea.. GASTROINTESTINAL: No abdominal pain. No nausea or vomiting. No diarrhea or constipation. No hematemesis. No hematochezia. GENITOURINARY: No urgency. No frequency. No dysuria. No hematuria. No obstructive symptoms. No discharge. No pain. No significant abnormal bleeding. MUSCULOSKELETAL: No musculoskeletal pain; no joint swelling. NEUROLOGICAL: Awake, alert, oriented to time, place and person. No headache. No neck pain. No syncope. No seizures. No dizziness. PSYCHIATRIC: Not anxious. No depression. No suicidal thoughts. No homicidal thoughts. SKIN: No rash. No lesions. No wounds. ENDOCRINE: No unexplained weight loss. No weight gain. HEMATOLOGIC/LYMPHATIC: No anemia. No purpura. No petechiae. No prolonged or excessive bleeding. No palpable lymph nodes. PHYSICAL EXAMINATION: GENERAL: The patient is awake, alert and oriented, lying in bed in no distress. VITAL SIGNS: Temperature 97.3 F, Pulse 62, Respiratory Rate 18, BP 133/54, Pulse Ox 97% HEENT: Head normocephalic, atraumatic. Eyes: Extraocular muscles are intact. Pupils are equal, round and reactive to light and accommodation. Ears: No lesions. Nose appeared normal. Throat: No exudate or erythema. NECK: Supple. No JVD, no carotid bruit. No lymphadenopathy or thyromegaly. LUNGS: Diminished breath sounds. Clear to auscultation. Percussion note normal. Chest symmetrical. HEART: S1, S2, no S3. No murmurs. No cyanosis or clubbing. No ascites. Pulses: Dorsalis pedis and posterior tibial pulses +1 to +2 both sides. ABDOMEN: Soft. Non-tender. Bowel sounds active. No CVA tenderness. No mass felt. EXTREMITIES: No edema. Full range of motion of all extremities, equal. NEUROLOGIC: No focal deficit. Cranial nerves II through XII are grossly intact. No headache. No double vision. SKIN: Not dry. Intact. Turgor-normal. LYMPHATIC: No palpable lymph nodes/no lymphedema. MUSCULOSKELETAL: Normal joints with no swelling. Muscle tone is normal. LAB REVIEW: 02/24/21 04:45 02/24/21 04:45 02/24/21 04:45: Sodium 137.9, Potassium 4.72, Chloride 107.0, Carbon Dioxide 22.0, Anion Gap 13.62, BUN 28.2 H, Creatinine 0.73, Estimated GFR (MDRD) 76.00, BUN/Creatinine Ratio 38.63, Glucose 157.0 H, Calcium 9.10, Ferritin 139.00, Total Bilirubin 0.51, AST 18.6, ALT 21.0, Alkaline Phosphatase 58.8, Total Protein 6.35, Albumin 3.61, Globulin 2.74, Albumin/Globulin Ratio 1.31 02/24/21 04:45: WBC 9.50, RBC 5.04, Hgb 13.5, Hct 40.1, MCV 79.6 L, MCH 26.8 L, MCHC 33.7, RDW Coeff of Eulalia 16.0 H, Plt Count 233, Immature Gran % (Auto) 4.1, Neut % (Auto) 77.1 H, Lymph % (Auto) 12.1, [place] % (Auto) 6.3, Eos % (Auto) 0.0, Baso % (Auto) 0.4, Neut # (Auto) 7.3 H, Lymph # (Auto) 1.2, [place] # (Auto) 0.6, Eos # (Auto) 0.0, Baso # (Auto) 0.0, Immature Gran # (Auto) 0.4 ASSESSMENT: Please see below. 1. Bilateral COVID 19 pneumonia 2. Dehydration, resolved 3. Hypotension, improved 4. Generalized weakness. PLAN: 1. Discharge home 2. Omnicef 300mg BID for 5 days 3. Prednisone 10mg BID for 5 days 4. Resume Potassium and Lasix as before 5. Continue Pepcid, zinc and Vitamin 3 for 30 days 6. Discontinue Eliquis 7. Home Health for PT/OT and nursing 8. Continue Cozaar 50mg BID Plan and coordination of the patient's care discussed in the presence of Genetic Supervisor and nurse. SCRIBED BY: ZAHRA JC Ocean Rescue Lieutenant scribed while in presence of service performed by Dr. Sales/Jayla Velasquez APRN on 02/24/21 ([id number])
[2021-02-24] MEDS: ZINC-220 PO SCH (09:55)
[2021-02-24] MEDS: VITAMIN D PO SCH (09:55)
[2021-02-24] MEDS: COZAAR PO SCH (09:56)
[2021-02-24] MEDS: DECADRON IVP SCH (09:56)
[2021-02-24] MEDS: ELIQUIS PO SCH (09:57)
[2021-02-24] MEDS: SYMBICORT 160-4.5 MCG INHALER IH SCH (09:58)
[2021-02-24] MEDS: LIPITOR PO SCH (09:58)
--- NOTE | 2021-02-24 11:27 | CM.DICTOOL ---
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 GURROLA AT [facility] DETACHED RETINA LT EYE 03/[address] HOLDEN IN [place] DEPENDENT LEG EDEMA HIATAL HERNIA SURGERY LAST VITALS Temp Pulse Resp BP Pulse Ox 97.3 F L 62 18 133/54 L 97 02/24/21 05:07 02/24/21 05:07 02/24/21 05:07 02/24/21 05:07 02/24/21 09:20 TAKE THESE MEDICATIONS AT HOME Acetaminophen (Acetaminophen 325 Mg Tablet) 650 mg PO TID PRN PRN Reason: Mild Pain Atorvastatin Calcium (Atorvastatin Calcium 20 Mg Tablet) 20 mg PO DAILY [facility] Last Admin: 02/23/21 08:55 Dose: 20 mg Budesonide/Formoterol Fumarate (Budesonide/Formoterol Fumarate 160/4.5 Mcg Inhaler) 2 puff IH BID RAMBO COMPLETE EXISTING SUPPLY THEN D/C -- (CHANGED) Last Admin: 02/23/21 20:14 Dose: 2 puff Cefdinir (Cefdinir 300 Mg Capsule) 300 mg PO Q12HR RAMBO X 7 DAYS -- (NEW) Stop: 02/27/21 08:59 Cholecalciferol (Cholecalciferol (Vitamin D3) 1,000 Unit (25 Mcg) Tablet) 5,000 unit PO DAILY RAMBO X 30 MRE DAYS -- (NEW) Last Admin: 02/23/21 08:54 Dose: 5,000 unit Famotidine (Famotidine 20 Mg Tablet) 40 mg PO BIDAC RAMBO X 30 MORE DAYS -- (NEW) Last Admin: 02/24/21 05:30 Dose: 40 mg Furosemide (Furosemide 20 Mg Tablet) 20 mg PO DAILY PRN PRN Reason: FLUID EXCESS Hydroxyzine Pamoate (Hydroxyzine Pamoate 25 Mg Capsule) 25 mg PO BEDTIME [facility] Last Admin: 02/23/21 20:08 Dose: 25 mg Losartan Potassium (Losartan Potassium 25 Mg Tablet) 50 mg PO BID [facility] -- (NEW) Last Admin: 02/23/21 20:08 Dose: 50 mg Potassium Chloride (Potassium Chloride 10 Meq Capsule.Er) 10 meq PO DAILY PRN PRN Reason: TAKE WITH LASIX Ropinirole HCl (Ropinirole Hcl 0.25 Mg Tablet) 0.25 mg PO BEDTIME [facility] Last Admin: 02/23/21 20:08 Dose: 0.25 mg Tramadol HCl (Tramadol Hcl 50 Mg Tablet) 50 mg PO TID PRN PRN Reason: Pain Last Admin: 02/23/21 16:29 Dose: 50 mg Zinc Sulfate (Zinc Sulfate 220 Mg Capsule) 220 mg PO DAILY RAMBO X 30 MORE DAYS -- (NEW) Last Admin: 02/23/21 08:54 Dose: 220 mg PREDNISONE 10 BID X 5 DAYS, START 02/25/2021 -- (NEW) PHENERGAN/CODIENE SYRUP 5 ML EVERY 6 HOURS PRN FOR COUGH # 4 OZ -- (NEW) ASA 81 MG PO DAILY ALLERGIES No Known Allergies Allergy (Verified 11/04/20 10:02) DISCONTINUED MEDICATIONS 1). Diltiazem HCl (Diltiazem Hcl 60 Mg Tablet) 60 mg PO Q12HR [facility] NEW PRESCRIPTIONS: 1). PREDNISONE 10 BID X 5 DAYS 2). OMNICEF 300 MG PO BID X 5 DAYS 3). COZAAR 50 MG PO BID 4). COMPLETE THE SYMBICORT MDI 2 PUFFS BID 5). PHENERGAN/CODIENE SYRUP 5 ML EVERY 6 HOURS PRN FOR COUGH # 4 OZ 6). PEPCID 40 MG PO BID AC X 30 DAYS 7). VITAMIN D 5000 UNITS PO DAILY X 30 DAYS 8). ZINC 220 MG PO DAILY X 30 DAYS SMOKING: N/A DISEASE SPECIFIC EDUCATION: PNEUMONIA COVID BLEEDING PRECAUTIONS OXYGEN FALL PRECAUTIONS LAB REVIEW: 02/24/21 04:45 02/24/21 04:45 02/24/21 04:45: Sodium 137.9, Potassium 4.72, Chloride 107.0, Carbon Dioxide 22.0, Anion Gap 13.62, BUN 28.2 H, Creatinine 0.73, Estimated GFR (MDRD) 76.00, BUN/Creatinine Ratio 38.63, Glucose 157.0 H, Calcium 9.10, Ferritin 139.00, Total Bilirubin 0.51, AST 18.6, ALT 21.0, Alkaline Phosphatase 58.8, Total Protein 6.35, Albumin 3.61, Globulin 2.74, Albumin/Globulin Ratio 1.31 02/24/21 04:45: WBC 9.50, RBC 5.04, Hgb 13.5, Hct 40.1, MCV 79.6 L, MCH 26.8 L, MCHC 33.7, RDW Coeff of Eulalia 16.0 H, Plt Count 233, Immature Gran % (Auto) 4.1, Neut % (Auto) 77.1 H, Lymph % (Auto) 12.1, [place] % (Auto) 6.3, Eos % (Auto) 0.0, Baso % (Auto) 0.4, Neut # (Auto) 7.3 H, Lymph # (Auto) 1.2, [place] # (Auto) 0.6, Eos # (Auto) 0.0, Baso # (Auto) 0.0, Immature Gran # (Auto) 0.4 PLAN: DISCHARGE: RETURN TO HER HOME SHE REMAINS INDEPENDENT, SHE LIVES WITH HER SON AND AN ELDERLY LADY SHE ASSIST ACTIVITY: UP TOLERATED, WALK IN HOME FREQUENTLY WITH REST PERIODS STAY INDOORS UNTIL RELEASED BY MD, NO STRENUOUS ACTIVITY AND FOLLOW PANDEMIC PRECAUTIONS BLEEDING PRECAUTIONS OXYGEN PRECAUTIONS OXYGEN:@ 2 L/M PER N/C NEEDED FOR OXYGEN SATURATIONS BELOW 90% , CALL [facility] IF ANY CONCERNS WITH EQUIPMENT DIET: REGULAR WITH ADEQUATE FLUID INTAKE MD FOLLOW-UP: SEE DR. SALES/ CARMELA ZAMUDIO APRN/ BROOK POWELL IN THE OFFICE ON MARCH 06, 2021 @ 130 PM CODE STATUS: DO NOT RESUSCITATE MRS LASSITER IS BACK TO BEING ALERT AND ORIENTED X 4 AFTER SOME PERIODS OF CONFUSION. SHE WAS DEPENDENT ON OXYGEN AT HOME AND WHEN SHE ARRIVED FOR THIS HOSPITAL STAY. SHE IS NOW MANAGED ON ROOM AIR. LUNGS ARE CLEAR AND DIMINISHED. HAS A COUGH, DRY, PERSISTENT AT TIMES. DENIES ANY SOA WITH REST OR ACTIVITY. SHE IS EATING FAIR AND DRINKING GOOD. SHE IS CONTINENT OF BOWEL AND BLADDER WITH LAST BM 02/21. SHE IS UP INDEPENDENTLY, STEADY AND NO ASSISTIVE DEVICE. SKIN IS WARM AND DRY AND INTACT. SHE LIVES WITH HER SON AND THEY TAKE CARE OF A ELDERLY FRIEND IN THEIR HOME THAT MENTALLY CANNOT STAY BY HERSELF. DECLINED HOME HEALTH AT THIS TIME. MD CARMELA BLUE APRN ALYCE HANNAN, APRN
[2021-02-24 12:16] LABS: C-REACTIVE PROTEIN < 1 mg/L (0-10)
[2021-02-25 09:12] LABS: C-REACTIVE PROTEIN < 1 mg/L (0-10)
--- NOTE | 2021-02-25 13:57 | PN ---
DATE OF SERVICE: 02/20/2021 SUBJECTIVE: The patient was seen and examined with the Nurse Practitioner. The patient's condition is steadily improving. Appetite has improved. Her kidney functions are all stable. Markers are coming down. TIME SPENT: More than 30 minutes. Plan and coordination of the patient's care discussed in the presence of nurse. JOSHUA
--- NOTE | 2021-02-26 09:34 | PN ---
DATE OF SERVICE: 02/22/2021 SUBJECTIVE: 85 year old white female hospitalized with COVID pneumonia with respiratory failure. The patient's condition has improved remarkably. The patient had some epigastric discomfort which subsided. This morning she is feeling better. REVIEW OF SYSTEMS: CONSTITUTIONAL: No night sweats. No fatigue, malaise, lethargy. No fever or chills. HEENT: Eyes: No visual changes. No eye pain. No eye discharge. ENT: No runny nose. No epistaxis. No sinus pain. No sore throat. No odynophagia. No congestion. RESPIRATORY: No cough, no congestion. No hemoptysis. No shortness of breath. CARDIOVASCULAR: No angina symptoms. No CHF symptoms. No atypical chest pain for CAD. No palpitations. No PND. No orthopnea. GASTROINTESTINAL: No abdominal pain. No nausea or vomiting. No diarrhea or constipation. No hematemesis. No hematochezia. GENITOURINARY: No urgency. No frequency. No dysuria. No hematuria. No obstructive symptoms. No discharge. No pain. No significant abnormal bleeding. MUSCULOSKELETAL: No musculoskeletal pain; no joint swelling. NEUROLOGICAL: No headache. No neck pain. No syncope. No seizures. No dizziness. Confused at times. PSYCHIATRIC: Not anxious. No depression. No suicidal thoughts. No homicidal thoughts. SKIN: No rash. No lesions. No wounds. ENDOCRINE: No unexplained weight loss. No weight gain. HEMATOLOGIC/LYMPHATIC: No anemia. No purpura. No petechiae. No prolonged or excessive bleeding. No palpable lymph nodes. PHYSICAL EXAMINATION: VITAL SIGNS: Temperature 98.3, pulse 70, respiratory rate 20, blood pressure 139/50, pulse ox 95%. HEENT: Head normocephalic, atraumatic. Eyes: Extraocular muscles are intact. Pupils are equal, round and reactive to light and accommodation. Ears: No lesions. Nose appeared normal. Throat: No exudate or erythema. NECK: Supple. No JVD, no carotid bruit. No lymphadenopathy or thyromegaly. LUNGS: Decreased breath sounds but clear to auscultation. Percussion note normal. Chest symmetrical. HEART: S1, S2, no S3. No murmurs. No cyanosis or clubbing. No ascites. Pulses: Dorsalis pedis and posterior tibial pulses +1 to +2 bilaterally. ABDOMEN: Soft. Nontender. Bowel sounds active. No CVA tenderness. No mass felt. EXTREMITIES: No edema. Full range of motion of all extremities, equal. NEUROLOGIC: No focal deficit. Cranial nerves II through XII are grossly intact. No headache. No double vision. SKIN: Not dry. Intact. Turgor - normal. LYMPHATIC: No palpable lymph nodes/no lymphedema. MUSCULOSKELETAL: Normal joints with no swelling. Muscle tone is normal. LABS: hgb 13.8, hct 41, WBC 6,900 normal differential, creatinine 0.6, BUN 48 done 02/21/2021. This morning the patient refused labs. She was somewhat irritated. ASSESSMENT: 1. COVID 19 pneumonia resolving. The patient has done her time in quarantine. She is transferred to regular floor. PLAN: 1. She is going to be continued on K-Tab 2. Omnicef is started 3. Rocephin has been discontinued 4. Continue steroids CONDITION: Stable. TIME SPENT: More than 30 minutes. Plan and coordination of the patient's care discussed in the presence of nurse. JOSHUA
--- NOTE | 2021-02-26 09:37 | PN ---
DATE OF SERVICE: 02/23/2021 SUBJECTIVE: 85 year old white female hospitalized with COVID pneumonia. The patient's condition has steadily improved. She is feeling better and wants to go home. Appetite has improved. REVIEW OF SYSTEMS: CONSTITUTIONAL: No night sweats. No fatigue, malaise, lethargy. No fever or chills. HEENT: Eyes: No visual changes. No eye pain. No eye discharge. ENT: No runny nose. No epistaxis. No sinus pain. No sore throat. No odynophagia. No congestion. RESPIRATORY: No cough, no congestion. No hemoptysis. No shortness of breath. CARDIOVASCULAR: No angina symptoms. No CHF symptoms. No atypical chest pain for CAD. No palpitations. No PND. No orthopnea. GASTROINTESTINAL: No abdominal pain. No nausea or vomiting. No diarrhea or constipation. No hematemesis. No hematochezia. GENITOURINARY: No urgency. No frequency. No dysuria. No hematuria. No obstructive symptoms. No discharge. No pain. No significant abnormal bleeding. MUSCULOSKELETAL: No musculoskeletal pain; no joint swelling. NEUROLOGICAL: No headache. No neck pain. No syncope. No seizures. No dizziness. PSYCHIATRIC: Not anxious. No depression. No suicidal thoughts. No homicidal thoughts. SKIN: No rash. No lesions. No wounds. ENDOCRINE: No unexplained weight loss. No weight gain. HEMATOLOGIC/LYMPHATIC: No anemia. No purpura. No petechiae. No prolonged or excessive bleeding. No palpable lymph nodes. PHYSICAL EXAMINATION: VITAL SIGNS: Temperature 98.5, pulse 62, respiratory rate 18, blood pressure 150/70 and pulse ox 98%. HEENT: Head normocephalic, atraumatic. Eyes: Extraocular muscles are intact. Pupils are equal, round and reactive to light and accommodation. Ears: No lesions. Nose appeared normal. Throat: No exudate or erythema. NECK: Supple. No JVD, no carotid bruit. No lymphadenopathy or thyromegaly. LUNGS: Decreased breath sounds but clear to auscultation. Percussion note normal. Chest symmetrical. HEART: S1, S2, no S3. No murmurs. No cyanosis or clubbing. No ascites. Pulses: Dorsalis pedis and posterior tibial pulses +1 to +2 bilaterally. ABDOMEN: Soft. Nontender. Bowel sounds active. No CVA tenderness. No mass felt. EXTREMITIES: No edema. Full range of motion of all extremities, equal. NEUROLOGIC: No focal deficit. Cranial nerves II through XII are grossly intact. No headache. No double vision. SKIN: Not dry. Intact. Turgor - normal. LYMPHATIC: No palpable lymph nodes/no lymphedema. MUSCULOSKELETAL: Normal joints with no swelling. Muscle tone is normal. LABS: Hgb 13.1, hct 38, WBC 8,500 normal differential, creatinine 0.6, BUN 26, potassium 4.3 ASSESSMENT: 1. COVID pneumonia has resolved 2. Dehydration has resolved PLAN: 1. She is fatigued and tired from COVID. The patient is oriented to time, place and person. She wants to go home. She says that my daughter and my son will take care of me at home. I want to go home. Once I go home I will feel better. 2. Discontinue IV fluids 3. Continue same treatment for now until discharge tomorrow. CONDITION: Stable. TIME SPENT: More than 30 minutes. Plan and coordination of the patient's care discussed in the presence of nurse. JOSHUA
--- NOTE | 2021-02-26 09:40 | PN ---
DATE OF SERVICE: 02/24/2021 SUBJECTIVE: 85 year old white female hospitalized with COVID pneumonia. Condition has improved remarkably. The patient is going to be taken care of by daughter and son. She is going to be discharge home to be followed as an outpatient. She was seen and examined with the Nurse Practitioner. All the followup medications and instructions given. TIME SPENT: More than 30 minutes. Plan and coordination of the patient's care discussed in the presence of nurse. JOSHUA
--- NOTE | 2021-02-26 09:42 | PN ---
02/17/2021: Level 5 02/18/2021: Intermediate 02/19/2021: Intermediate 02/20/2021: Intermediate 02/21/2021: Intermediate 02/22/2021: Intermediate 02/23/2021: Intermediate 02/24/2021: D as in discharge MTDD
--- NOTE | 2021-02-27 11:08 | DS ---
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 GURROLA AT [facility] DETACHED RETINA LT EYE 03/[address] HOLD[place] DEPENDENT LEG EDEMA HIATAL HERNIA SURGERY LAST VITALS: Temp Pulse Resp BP Pulse Ox 97.3 F L 62 18 133/54 L 97 02/24/21 05:07 02/24/21 05:07 02/24/21 05:07 02/24/21 05:07 02/24/21 09:20 DISCHARGE INSTRUCTIONS: DISCHARGE: RETURN TO HER HOME SHE REMAINS INDEPENDENT, SHE LIVES WITH HER SON AND AN ELDERLY LADY SHE ASSIST. OXYGEN:@ 2 L/M PER N/C NEEDED FOR OXYGEN SATURATIONS BELOW 90%, CALL [facility] IF ANY CONCERNS WITH EQUIPMENT. MD FOLLOW- UP: SEE DR. SALES/ CARMELA ZAMUDIO APRN/ BROOK POWELL IN THE OFFICE ON MARCH 06, 2021 @ 130 PM. CODE STATUS: DO NOT RESUSCITATE. TAKE THESE MEDICATIONS AT HOME: Acetaminophen (Acetaminophen 325 Mg Tablet) 650 mg PO TID PRN PRN Reason: Mild Pain Atorvastatin Calcium (Atorvastatin Calcium 20 Mg Tablet) 20 mg PO DAILY [facility] Last Admin: 02/23/21 08:55 Dose: 20 mg Budesonide/Formoterol Fumarate (Budesonide/Formoterol Fumarate 160/4.5 Mcg Inhaler) 2 puff IH BID [facility] COMPLETE EXISTING SUPPLY THEN D/C -- (CHANGED) Last Admin: 02/23/21 20:14 Dose: 2 puff Cefdinir (Cefdinir 300 Mg Capsule) 300 mg PO Q12HR [facility] X 7 DAYS -- (NEW) Stop: 02/27/21 08:59 Cholecalciferol (Cholecalciferol (Vitamin D3) 1,000 Unit (25 Mcg) Tablet) 5,000 unit PO DAILY [facility] X 30 MRE DAYS -- (NEW) Last Admin: 02/23/21 08:54 Dose: 5,000 unit Famotidine (Famotidine 20 Mg Tablet) 40 mg PO BIDAC [facility] X 30 MORE DAYS -- (NEW) Last Admin: 02/24/21 05:30 Dose: 40 mg Furosemide (Furosemide 20 Mg Tablet) 20 mg PO DAILY PRN PRN Reason: FLUID EXCESS Hydroxyzine Pamoate (Hydroxyzine Pamoate 25 Mg Capsule) 25 mg PO BEDTIME [facility] Last Admin: 02/23/21 20:08 Dose: 25 mg Losartan Potassium (Losartan Potassium 25 Mg Tablet) 50 mg PO BID [facility] -- (NEW) Last Admin: 02/23/21 20:08 Dose: 50 mg Potassium Chloride (Potassium Chloride 10 Meq Capsule.Er) 10 meq PO DAILY PRN PRN Reason: TAKE WITH LASIX Ropinirole HCl (Ropinirole Hcl 0.25 Mg Tablet) 0.25 mg PO BEDTIME [facility] Last Admin: 02/23/21 20:08 Dose: 0.25 mg Tramadol HCl (Tramadol Hcl 50 Mg Tablet) 50 mg PO TID PRN PRN Reason: Pain Last Admin: 02/23/21 16:29 Dose: 50 mg Zinc Sulfate (Zinc Sulfate 220 Mg Capsule) 220 mg PO DAILY [facility] X 30 MORE DAYS -- (NEW) Last Admin: 02/23/21 08:54 Dose: 220 mg PREDNISONE 10 BID X 5 DAYS, START 02/25/2021 -- (NEW) PHENERGAN/CODIENE SYRUP 5 ML EVERY 6 HOURS PRN FOR COUGH # 4 OZ -- (NEW) ASA 81 MG PO DAILY ALLERGIES: No Known Allergies Allergy (Verified 11/04/20 10:02) DISCONTINUED MEDICATIONS: 1). Diltiazem HCl (Diltiazem Hcl 60 Mg Tablet) 60 mg PO Q12HR [facility] NEW PRESCRIPTIONS: 1). PREDNISONE 10 BID X 5 DAYS 2). OMNICEF 300 MG PO BID X 5 DAYS 3). COZAAR 50 MG PO BID 4). COMPLETE THE SYMBICORT MDI 2 PUFFS BID 5). PHENERGAN/CODIENE SYRUP 5 ML EVERY 6 HOURS PRN FOR COUGH # 4 OZ 6). PEPCID 40 MG PO BID AC X 30 DAYS 7). VITAMIN D 5000 UNITS PO DAILY X 30 DAYS 8). ZINC 220 MG PO DAILY X 30 DAYS SMOKING: N/A DISEASE SPECIFIC EDUCATION: PNEUMONIA COVID BLEEDING PRECAUTIONS OXYGEN FALL PRECAUTIONS LAB REVIEW: 02/24/21 04:45 02/24/21 04:45 02/24/21 04:45: Sodium 137.9, Potassium 4.72, Chloride 107.0, Carbon Dioxide 22.0, Anion Gap 13.62, BUN 28.2 H, Creatinine 0.73, Estimated GFR (MDRD) 76.00, BUN/Creatinine Ratio 38.63, Glucose 157.0 H, Calcium 9.10, Ferritin 139.00, Total Bilirubin 0.51, AST 18.6, ALT 21.0, Alkaline Phosphatase 58.8, Total Protein 6.35, Albumin 3.61, Globulin 2.74, Albumin/Globulin Ratio 1.31 02/24/21 04:45: WBC 9.50, RBC 5.04, Hgb 13.5, Hct 40.1, MCV 79.6 L, MCH 26.8 L, MCHC 33.7, RDW Coeff of Eulalia 16.0 H, Plt Count 233, Immature Gran % (Auto) 4.1, Neut % (Auto) 77.1 H, Lymph % (Auto) 12.1, [place] % (Auto) 6.3, Eos % (Auto) 0.0, Baso % (Auto) 0.4, Neut # (Auto) 7.3 H, Lymph # (Auto) 1.2, [place] # (Auto) 0.6, Eos # (Auto) 0.0, Baso # (Auto) 0.0, Immature Gran # (Auto) 0.4 ACTIVITY: UP TOLERATED, WALK IN HOME FREQUENTLY WITH REST PERIODS STAY INDOORS UNTIL RELEASED BY MD, NO STRENUOUS ACTIVITY AND FOLLOW PANDEMIC PRECAUTIONS BLEEDING PRECAUTIONS OXYGEN PRECAUTIONS DIET: REGULAR WITH ADEQUATE FLUID INTAKE HOSPITAL COURSE: This is a white female who presented. She had tested positive for COVID. She had been feeling poorly for several days. She had called our office. She was a direct admit for dehydration, hypertension, generalized weakness. CT scan showed bilateral COVID pneumonia. She was admitted. ABG initially showed pO2 of 125 on 2 liters. She was taken off of oxygen. She uses it PRN at home. She was started on normal saline IV fluids. We started her on Remdesivir on days 1 IV along with Decadron IV, Zithromax and Rocephin. Her main complain initially was nausea and inability to eat or drink anything. Renal function was slightly elevated showing mild dehydration. She had mild cough and low grade temperature. Over the course of the next several days she steadily improved with Zofran her nausea resolved. IV fluids she perked up. She completed her 5 days of Remdesivir. Again we had her on IV antibiotics. She was then switched to PO antibiotics. At the time of discharge her renal function was stable. Hgb was stable. She did develop some hypotension and some asymptomatic bradycardia while she was in the hospital. We discontinued her Cardizem that she had previously been on. Blood pressure is running 130/54 today, heart rate is 62. She was initially on 60mg BID of Cardizem we had taken this down to just once a day in the morning and then discontinued after she continued to have heart rate into the 40s and 50s. She already has oxygen at home. Her last ABG's were normal. She is not requiring oxygen while she is in the hospital. We will send her home to continue to do Symbicort inhaler for the next month along with Omnicef 300mg BID for the next 7 days. She will continue with Prednisone 10mg PO BID for the 5 days and has Phenergan with codeine cough syrup if needed. She has been eating well. Up and about on her own. Again labs are stable. Her family members are going to stay with her at home. She has done remarkably well. We will discharge her in stable condition and followup with her in the office. TIME SPENT: More than 60 minutes. JOSHUA
== END 2021-02-24 13:35 | disposition home or self-care (01) | DRG 177 ==
LOC: SCU 10:02 → MEDSURG A 02-22 12:41
PROVIDERS: ADMIT Internal Medicine; ATTEND Internal Medicine

== ENCOUNTER 2021-02-26 18:22 | Inpatient (IN) ==
--- NOTE | 2021-02-26 18:43 | ED.PDOC ---
General ED Provider: Dr. ALEC DERAS Chief Complaint: Respiratory Complaint Time Seen by Provider: 02/26/21 18:42 Mode of Arrival: Wheelchair Information Source: Patient Primary Care Provider: ALEAH SALES Sepsis Protocol: For patient's 13 years and over: Temp is 96.8 and below OR 101 and greater Pulse >90 BPM Resp >20/minute Acutely Altered Mental Status Are patient's symptoms suggestive of a new infection, such as: -Pneumonia -Skin, Soft Tissue -Endocarditis -UTI -Bone, Joint Infection -Implantable Device -Acute Abdominal Infection -Wound Infection -Meningitis -Blood Stream Catheter Infection -Unknown [facility] Medical History B12 deficiency anemia Chronic anemia Degenerative disc disease, lumbar Detached retina, left Dyslipidemia GERD (gastroesophageal reflux disease) Hyperglycemia Hypertension Leg edema Melanoma PAC (premature atrial contraction) PVC's (premature ventricular contractions) Restless leg syndrome Family History Mother Cancer Other No known health problems Social History Smoking and tobacco status: Former smoker Surgical History History of bladder suspension procedure History of section History of esophageal surgery History of repair of hiatal hernia Status post appendectomy Status post hysterectomy Female Reproductive History Menstrual Hx Hysterectomy: No Course Course Vital Signs: Temp Pulse Resp BP Pulse Ox 02/26/21 18:22 97.2 F L 109 H 22 131/67 94 L Discharge Plan Discharge Prescriptions: No Action atorvastatin 20 MG tablet 20 mg PO DAILY RF: 0 tramadol 50 MG tablet 50 mg PO TID PRN (Reason: Pain) RF: 0 ropinirole 0.25 mg tablet 0.25 mg PO BEDTIME RF: 0 aspirin [Aspirin Low Dose] 81 mg Tablet,Delayed Release (Dr/Ec) 81 mg PO DAILY Qty: 30 RF: 5 acetaminophen [Tylenol] 325 mg Tablet 650 mg PO TID PRN (Reason: Pain) Qty: 60 RF: 5 furosemide [Lasix] 20 mg Tablet 20 mg PO DAILY PRN (Reason: fluid excess) RF: 0 potassium chloride [K-Dur] 10 mEq Tablet,Er Particles/Crystals 10 meq PO DAILY PRN (Reason: take with lasix) RF: 0 hydroxyzine pamoate [Vistaril] 25 mg capsule 25 mg PO BEDTIME RF: 0 prednisone 10 mg Tablet 10 mg PO BID 5 Days Qty: 10 RF: 0 cefdinir 300 mg Capsule 300 mg PO Q12H 5 Days Qty: 9 RF: 0 losartan [Cozaar] 50 mg Tablet 50 mg PO BID Qty: 60 RF: 2 budesonide-formoterol [Symbicort] 80-4.5 mcg/actuation Hfa Aerosol Inhaler 2 puff INHALATION BID Qty: 18 RF: 0 promethazine-codeine 6.25-10 mg/5 mL Syrup 5 ml PO Q6H PRN (Reason: Cough) Qty: 4 RF: 0 famotidine [Pepcid] 40 mg Tablet 40 mg PO BID 30 Days Qty: 60 RF: 0 cholecalciferol (vitamin D3) [Vitamin D3] 125 mcg (5,000 unit) Tablet 125 mcg PO DAILY 30 Days Qty: 30 RF: 0 zinc sulfate [Zinc-220] 50 mg zinc (220 mg) Capsule 50 mg PO DAILY 30 Days Qty: 30 RF: 0 ED Provider: ALEC DERAS Physician Progress Note: []
[2021-02-26 19:22] LABS: BASOPHILS % (AUTO) 0.2 % (0.0-3.0); HEMATOCRIT 41.9 % (37.0-47.0); HEMOGLOBIN 14.2 g/dl (12.0-16.0); IMMATURE GRANULOCYTE # (AUTO) 0.5 (0.0-1.0); IMMATURE GRANULOCYTE % (AUTO) 4.3 % (0.0-5.0); LYMPHOCYTES # (AUTO) 1.6 K/uL (0.60-3.4); LYMPHOCYTES % (AUTO) 14.8 (10.0-50.0); MEAN CORPUSCULAR HEMOGLOBIN 27.1 pg (27.0-31.0); MEAN CORPUSCULAR HGB CONC 33.9 (31.8-35.4); MONOCYTES # (AUTO) 0.8 K/uL (0.4-2.0); MONOCYTES % (AUTO) 7.7 (0-10); NEUTROPHILS # (AUTO) 7.9 K/ul (2.0-6.9); PLATELET COUNT 202 10^3/uL (140-440); RDW COEFFICIENT OF VARIATION 15.7 % (11.6-14.8); RED BLOOD COUNT 5.24 10^6/ul (4.20-5.40); WHITE BLOOD COUNT 10.81 K/ul (4.6-10.2)
[2021-02-26 19:36] LABS: ALANINE AMINOTRANSFERASE 19.2 U/L (0-35); ALBUMIN 3.64 g/dL (3.5-5.0); ALKALINE PHOSPHATASE 61.7 U/L (53-141); ASPARTATE AMINO TRANSFERASE 20.6 U/L (14-36); BILIRUBIN,TOTAL 0.34 mg/dL (0.2-1.3); BLOOD UREA NITROGEN 40.4 mg/dL (7-17); CALCIUM 8.16 mg/dL (8.4-10.2); CARBON DIOXIDE 18.9 mmol/L (22-30.0); CHLORIDE 104.4 mmol/L (98-107); CREATININE 1.07 mg/dL (0.60-1.30); GLUCOSE 128.7 mg/dL (74-106); POTASSIUM 4.49 mmol/L (3.5-5.1); SODIUM 134.1 mmol/L (134.5-145); TOTAL PROTEIN 6.53 g/dL (6.3-8.2)
[2021-02-26] MEDS ORDERED: SODIUM CHLORIDE 500 ML IV STA (19:41)
[2021-02-26 19:43] LABS: TROPONIN I < 0.012 ng/ml (0.0000-0.120)
--- NOTE | 2021-02-26 20:13 | DI ---
EXAM: Single view of the chest. History: Cough and COVID-19 Comparison: Chest radiograph 11/04/2020, chest CT 02/17/2021 Findings: Heart is enlarged. No consolidation. No pleural fluid and no pneumothorax. No acute oss eous abnormalities. Atherosclerotic vascular calcifications. Impression: No definite acute infiltrates
[2021-02-26] MEDS ORDERED: ZOFRAN 4 MG/2 ML IVP ONE (20:39)
[2021-02-26 22:02] LABS: BILIRUBIN,URINE Negative (NEGATIVE); CLARITY,URINE Clear (CLEAR); COLOR,URINE Yellow (YELLOW); GLUCOSE, URINE (UA) Negative (NEGATIVE); KETONES,URINE Negative (NEGATIVE); LEUKOCYTE ESTERASE ,URINE Negative (NEGATIVE); NITRITE,URINE Negative (NEGATIVE); PROTEIN,URINE Negative (NEGATIVE); URINE, BLOOD Negative (NEGATIVE); UROBILINOGEN,URINE 0.2 (0.2)
[2021-02-26] MEDS ORDERED: ZOFRAN 4 MG/2 ML IVP PRN (22:14)
[2021-02-26] MEDS ORDERED: LACTATED RINGERS 1,000 ML IV STA (22:14)
[2021-02-26] MEDS ORDERED: TYLENOL PO PRN (22:18)
--- NOTE | 2021-02-26 22:25 | ED.PDOC ---
General ED Provider: Dr. ALEC DERAS Chief Complaint: Respiratory Complaint Stated Complaint: Dx with COVID about 2 weeks ago, was admitted, just d/c about 2 days ago, feeling weak, not eating or drinking much, breathing OK Time Seen by Provider: 02/26/21 18:42 Mode of Arrival: Wheelchair Information Source: Patient Exam Limitations: No limitations Primary Care Provider: ALEAH SALES Nursing and Triage Documentation Reviewed and Agree: Yes Does patient meet sepsis criteria?: No System Inflammatory Response Syndrome: Not Applicable Sepsis Protocol: For patient's 13 years and over: Temp is 96.8 and below OR 101 and greater Pulse >90 BPM Resp >20/minute Acutely Altered Mental Status Are patient's symptoms suggestive of a new infection, such as: -Pneumonia -Skin, Soft Tissue -Endocarditis -UTI -Bone, Joint Infection -Implantable Device -Acute Abdominal Infection -Wound Infection -Meningitis -Blood Stream Catheter Infection -Unknown GI Complaint Exam Abdominal Pain Complaint/Exam Onset: Gradual Duration: several days Symptoms Are: Worse Timing: Intermittent Initial Severity: Moderate Current Severity: Moderate Location of Pain: Epigastric Character: Reports Cramping Aggravating: Reports None Alleviating: Reports None Associated Signs and Symptoms: Denies Diaphoresis, Fever, Cough, Chest pain, Dizziness, Back pain, Constipation, Blood in stool, Dysuria, Urinary frequency, Decreased urine output, Decreased appetite, Vaginal bleeding, Vaginal discharge, Nausea, Vomiting, Diarrhea, Sore throat or Decreased activity AAA Risk Factors: Reports Hypertension Cardiac Risk Factors: Reports Hypertension Ectopic Risk Factors: Reports None Ovarian Torsion Risk Factors: Reports None Surgical Obstruction Risk Factors: Reports None Related Surgical History: Reports None Abdominal Findings: Present None Review of Systems Review Of Systems Constitutional: Reports Malaise, Weakness and Loss of appetite Eyes: Reports No symptoms Ears, Nose, Mouth, Throat: Reports No symptoms Respiratory: Reports No symptoms Cardiac: Reports No symptoms GI: Reports Nausea and Poor appetite : Reports No symptoms Musculoskeletal: Reports No symptoms Skin: Reports No symptoms Neurological: Reports No symptoms Endocrine: Reports No symptoms Hematologic/Lymphatic: Reports No symptoms All Other Systems: Reviewed and Negative [facility] Medical History B12 deficiency anemia Chronic anemia Degenerative disc disease, lumbar Detached retina, left Dyslipidemia GERD (gastroesophageal reflux disease) Hyperglycemia Hypertension Leg edema Melanoma PAC (premature atrial contraction) PVC's (premature ventricular contractions) Restless leg syndrome Family History Mother Cancer Other No known health problems Social History Smoking and tobacco status: Former smoker Surgical History History of bladder suspension procedure History of section History of esophageal surgery History of repair of hiatal hernia Status post appendectomy Status post hysterectomy Female Reproductive History Menstrual Hx Hysterectomy: No Physical Exam Physical Exam Appearance: Reports Other (looks dehydrated) Ill-appearing: Moderate Pain Distress: None Eyes: Reports ROSY ENT: Reports Oropharynx normal Neck: Nonsupple Respiratory: Reports Breath sounds clear Cardiovascular: Reports RRR and Pulses normal GI/: Reports Soft and Nontender Musculoskeletal: Reports Normal strength and ROM intact Skin: Reports Warm and Dry Neurological: Reports Sensation intact, Motor intact and Alert Psychiatric: Reports Affect appropriate and Mood appropriate Interpretation EKG Interpretation Time of EKG #1: 19:06 Rate: Normal Rhythm: Sinus Ectopy: None [place]: NL ST Segment: Other (NSSTW changes) Interpretation: No acute changes Physician Notification Case Discussed Physician Notified: Dr. Sales out of town Critical Care Note Critical Care Note Total Critical Care Time (mins): 0 Course Course Hematology/Chemistry: 02/26/21 19:16 02/26/21 19:16 Orders, Labs, Meds: Lab Review 02/26/21 02/26/21 02/26/21 19:16 19:16 21:49 WBC 10.81 H RBC 5.24 Hgb 14.2 Hct 41.9 MCV 80.0 L MCH 27.1 MCHC 33.9 RDW Coeff of Eulalia 15.7 H Plt Count 202 Immature Gran % (Auto) 4.3 Neut % (Auto) 73.0 Lymph % (Auto) 14.8 [place] % (Auto) 7.7 Eos % (Auto) 0.0 Baso % (Auto) 0.2 Neut # (Auto) 7.9 H Lymph # (Auto) 1.6 [place] # (Auto) 0.8 Eos # (Auto) 0.0 Baso # (Auto) 0.0 Immature Gran # (Auto) 0.5 Sodium 134.1 L Potassium 4.49 Chloride 104.4 Carbon Dioxide 18.9 L Anion Gap 15.29 BUN 40.4 H Creatinine 1.07 Estimated GFR (MDRD) 49.00 BUN/Creatinine Ratio 37.75 Glucose 128.7 H Calcium 8.16 L Total Bilirubin 0.34 AST 20.6 ALT 19.2 Alkaline Phosphatase 61.7 Troponin I < 0.012 Total Protein 6.53 Albumin 3.64 Globulin 2.89 Albumin/Globulin Ratio 1.25 Urine Color Yellow Urine Clarity Clear Urine pH 5.0 Ur Specific Cassandra 1.020 Urine Protein Negative Urine Glucose (UA) Negative Urine Ketones Negative Urine Blood Negative Urine Nitrite Negative Urine Bilirubin Negative Urine Urobilinogen 0.2 Ur Leukocyte Esterase Negative Orders Category Date Time Status ADMIT PATIENT INPATIENT .TO MEDSURG (NON-MONITORED ADMISSION 02/26/21 22:12 Active BED) EKG-(ED ONLY) Stat CARDIO 02/26/21 18:53 Completed ACTIVITY .Up With Assistance CARE 02/26/21 22:14 Active INTAKE & OUTPUT Q8HR CARE 02/26/21 22:14 Active IP: INSERT SALINE LOCK ONCE CARE 02/26/21 22:14 Active VITAL SIGNS Q8HR CARE 02/26/21 22:14 Active REGULAR DIET DIETARY 02/26/21 Breakfast Ordered BASIC METABOLIC PANEL DAILY@0600 LAB 02/27/21 06:00 Ordered BASIC METABOLIC PANEL DAILY@0600 LAB 02/28/21 06:00 Ordered CBC W/ AUTO DIFF Stat LAB 02/26/21 19:16 Completed COMPREHENSIVE METABOLIC PANEL Stat LAB 02/26/21 19:16 Completed TROPONIN I Stat LAB 02/26/21 19:16 Completed URINALYSIS C & S IF INDICATED Stat LAB 02/26/21 21:49 Completed Acetaminophen [Tylenol] MEDS 02/26/21 22:18 Active 650 mg PO TID PRN Aspirin [Aspirin EC] MEDS 02/27/21 09:00 Active 81 mg PO DAILY Atorvastatin Calcium [Lipitor] MEDS 02/27/21 09:00 Active 20 mg PO DAILY Budesonide/Formoterol Fumarate [Symbicort 80-4.5 Mcg MEDS 02/27/21 09:00 Acti ve Inhaler] 2 puff IH BID Cholecalciferol (Vitamin D3) [Vitamin D] MEDS 02/27/21 09:00 Active 5,000 unit PO DAILY Enoxaparin Sodium [Lovenox] MEDS 02/27/21 09:00 Active 30 mg SUBCUT DAILY Famotidine [Pepcid] MEDS 02/27/21 09:00 Active 40 mg PO BID Hydroxyzine Pamoate [Vistaril] MEDS 02/27/21 01:54 Active 25 mg PO BEDTIME Losartan Potassium [Cozaar] MEDS 02/27/21 09:00 Active 50 mg PO BID Ondansetron HCl/Pf [Zofran 4 mg/2 ml] MEDS 02/26/21 20:39 Discontinued 4 mg IVP ONCE ONE Ondansetron HCl/Pf [Zofran 4 mg/2 ml] MEDS 02/26/21 22:14 Active 4 mg IVP Q4-6H PRN Prednisone MEDS 02/27/21 09:00 Active 10 mg PO BID Ringers Lactated Solution [Lactated Ringers] 1,000 ml MEDS 02/26/21 22:14 Active IV 125 mls/hr Ropinirole HCl [Requip] MEDS 02/27/21 21:00 Active 0.25 mg PO BEDTIME Sodium Chloride 0.9% [Sodium Chloride] 500 ml MEDS 02/26/21 19:41 Discontinued IV BOLUS Zinc Sulfate [Zinc-220] MEDS 02/27/21 09:00 Active 220 mg PO DAILY RESUSCITATION STATUS Routine OTHERS 02/26/21 22:14 Ordered CHEST, 1V AP ONLY Stat RADS 02/26/21 18:53 Completed Medications Generic Name Dose Route Start Last Admin Trade Name Freq PRN Reason Stop Dose Admin Acetaminophen 650 mg 02/26/21 22:18 Acetaminophen 325 Mg Tablet PO TID PRN Pain Aspirin 81 mg 02/27/21 09:00 Aspirin 81 Mg Tablet.Dr PO DAILY [facility] Atorvastatin Calcium 20 mg 02/27/21 09:00 Atorvastatin Calcium 20 Mg Tablet PO DAILY [facility] Budesonide/Formoterol Fumarate 2 puff 02/27/21 09:00 Budesonide/Formoterol Fumarate 80/4.5 Mcg Hfa.Aer.Ad IH BID [facility] Cholecalciferol 5,000 unit 02/27/21 09:00 Cholecalciferol (Vitamin D3) 1,000 Unit (25 Mcg) Tablet PO DAILY [facility] Enoxaparin Sodium 30 mg 02/27/21 09:00 Enoxaparin Sodium 30 Mg/0.3 Ml Syr SUBCUT DAILY [facility] Famotidine 40 mg 02/27/21 09:00 Famotidine 20 Mg Tablet PO BID [facility] Hydroxyzine Pamoate 25 mg 02/27/21 01:54 02/27/21 00:41 Hydroxyzine Pamoate 25 Mg Capsule PO 25 mg BEDTIME RAM[facility] Administration Lactated Ringer's 1,000 mls @ 125 mls/hr 02/26/21 22:14 02/26/21 23:31 Lactated Ringers IV 02/27/21 06:13 125 mls/hr .Q8H STA Administration Losartan Potassium 50 mg 02/27/21 09:00 Losartan Potassium 25 Mg Tablet PO BID [facility] Ondansetron HCl 4 mg 02/26/21 22:14 Ondansetron Hcl/Pf 4 Mg/2 Ml Sdv IVP Q4-6H PRN Nausea / Vomiting Prednisone 10 mg 02/27/21 09:00 Prednisone 10 Mg Tablet PO BID [facility] Ropinirole HCl 0.25 mg 02/27/21 21:00 Ropinirole Hcl 0.25 Mg Tablet PO BEDTIME [facility] Zinc Sulfate 220 mg 02/27/21 09:00 Zinc Sulfate 220 Mg Capsule PO DAILY [facility] Discontinued Medications Generic Name Dose Route Start Last Admin Trade Name Freq PRN Reason Stop Dose Admin Sodium Chloride 500 mls @ 500 mls/hr 02/26/21 19:41 02/26/21 19:48 Sodium Chloride IV 02/26/21 20:40 500 mls/hr BOLUS STA Administration Ondansetron HCl 4 mg 02/26/21 20:39 02/26/21 20:54 Ondansetron Hcl/Pf 4 Mg/2 Ml Sdv IVP 02/26/21 20:40 4 mg ONCE ONE Administration Vital Signs: Temp Pulse Resp BP Pulse Ox 02/26/21 21:54 70 19 02/26/21 18:22 97.2 F L 109 H 22 131/67 94 L Discharge Plan Discharge Patient Disposition: ADMITTED INPATIENT Discharge Problem: Dehydration ED Provider: ALEC DERAS Condition: Stable Physician Progress Note: []Dehydration, GI symptoms from COVID, admit for IVF
[2021-02-27 00:09] VITALS: BMI 22.8
[2021-02-27] MEDS: VISTARIL PO SCH ×3 (00:41→20:44)
[2021-02-27] MEDS ORDERED: PHENERGAN 25 MG/ML VIAL 25 MG in SODIUM CHLORIDE 50 ML IV PRN (03:35)
[2021-02-27] MEDS ORDERED: PHENERGAN 25 MG/ML VIAL ONE (03:48)
[2021-02-27] MEDS: PEPCID PO SCH ×3 (05:53→17:54)
[2021-02-27 07:26] LABS: CALCIUM 8.1 mg/dL (8.4-10.2); POTASSIUM 3.8 mmol/L (3.5-5.1)
[2021-02-27] MEDS ORDERED: PROTONIX IV IVP SCH (09:00)
[2021-02-27] MEDS ORDERED: PEPCID PO SCH (09:00)
[2021-02-27] MEDS: LOVENOX SUBCUT SCH (09:04)
[2021-02-27] MEDS: ZINC-220 PO SCH (09:06)
[2021-02-27] MEDS: LIPITOR PO SCH (09:06)
[2021-02-27] MEDS: COZAAR PO SCH ×2 (09:07→20:44)
[2021-02-27] MEDS: VITAMIN D PO SCH (09:07)
[2021-02-27] MEDS: ASPIRIN EC PO SCH (09:07)
[2021-02-27] MEDS: PREDNISONE PO SCH ×2 (09:08→17:54)
[2021-02-27] MEDS: SYMBICORT 80-4.5 MCG INHALER IH SCH ×2 (09:40→20:45)
[2021-02-27] MEDS ORDERED: SODIUM CHLORIDE 1,000 ML IV SCH (10:00)
[2021-02-27] MEDS: ULTRAM PO PRN ×2 (14:20→20:45)
--- NOTE | 2021-02-27 20:10 | PCM.PROG ---
Date Seen by Provider: 02/27/21 Time Seen by Provider: 10:30 Subjective: Aftab hopitalized through ER yesterday after getting progressively wearer at home, States was Dx with COVID about 2 weeks ago, was admitted treated, recovered and discharged about 2 days ago. Is now feeling weak, and has not eating or drinking much. Her breathing is OK Objective: Vitals: T=97.6 F, P=74, R=16, XY=093/51, SPO2=98 HEENT: Clear Neck: Supple Lungs: CTA CVS: HR RRR Abdomen: Soft and not tender Extremities: neg edema Neurological:NO focal deficit Skin: W/D turgor fair Lab/Tests/Diagnostic Imaging: Review on chart (1) Dehydration: Status: Acute Code(s): E86.0 - Dehydration SNOMED Code(s): 16462975 (2) Weakness: Status: Acute Code(s): R53.1 - Weakness SNOMED Code(s): 39322565 (3) History of COVID-19: Status: Acute Code(s): Z86.16 - Personal history of COVID-19 SNOMED Code(s): 411726405950101894 Plan: Continue present therapy PT to evaluate patient Recheck lab Increase activity
[2021-02-27] MEDS ORDERED: REQUIP PO SCH (21:00)
[2021-02-28 05:31] LABS: BLOOD UREA NITROGEN 22.4 mg/dL (7-17); CALCIUM 9.2 mg/dL (8.4-10.2); CARBON DIOXIDE 26.3 mmol/L (22-30.0); CREATININE 0.68 mg/dL (0.60-1.30); GLUCOSE 133.5 mg/dL (74-106); POTASSIUM 4.74 mmol/L (3.5-5.1)
[2021-02-28] MEDS: PEPCID PO SCH (05:55)
--- NOTE | 2021-02-28 09:04 | CT ---
EXAM: CT head without contrast. HISTORY: Confusion. COMPARISON: 07/08/2012. TECHNIQUE: Multiple axial images of the brain were obtained from the skull base through the vertex w ithout intravenous contrast. Multiplanar reformats were provided. FINDINGS: There is no intracranial hemorrhage or extraaxial collection. The gardner-white differentiat ion is maintained without evidence for acute large vascular territory infarction. There are areas of periventricular and subcortical white matter low attenuation. The cortical sulci and cerebral ventr icles are symmetrically enlarged. The basal cisterns are well visualized. There is no hydrocephalus , mass effect, or midline shift. The paranasal sinuses and mastoid air cells are clear. The calvari um is intact. Since the prior study, there has been no significant interval change. IMPRESSION: 1. No acute intracranial abnormality. 2. Chronic small vessel ischemic changes and atrophy. All CT scans are performed using dose optimization techniques as appropriate to the performed exam an d include at least one of the following: Automated exposure control, adjustment of the mA and/or kV according t o size, and the use of iterative reconstruction technique.
[2021-02-28] MEDS: ZINC-220 PO SCH (09:57)
[2021-02-28] MEDS: VITAMIN D PO SCH (09:59)
[2021-02-28] MEDS: LIPITOR PO SCH (10:00)
[2021-02-28] MEDS: ASPIRIN EC PO SCH (10:00)
[2021-02-28] MEDS: PREDNISONE PO SCH (10:01)
[2021-02-28] MEDS: COZAAR PO SCH (10:01)
[2021-02-28] MEDS: LOVENOX SUBCUT SCH (10:02)
[2021-02-28] MEDS: SYMBICORT 80-4.5 MCG INHALER IH SCH (10:05)
[2021-02-28 11:09] VITALS: BP 124/65; TEMP 97.6
--- NOTE | 2021-03-03 14:58 | OTDC ---
Date of Evaluation:02/26/21 Diagnosis:[Confused, weakness] Number of visits:[1] Last Date of Service:[] Reason For Discharge:[Discharged to home.] Discharge Summary:[Pt discharged home with family] JOSHUA
--- NOTE | 2021-03-07 13:36 | PCM.DC ---
Final Diagnosis: Dehydration - resolved. Weakness - improved. (1) Dehydration: Status: Acute Code(s): E86.0 - Dehydration SNOMED Code(s): 53155632 (2) Weakness: Status: Acute Code(s): R53.1 - Weakness SNOMED Code(s): 74260837 (3) History of COVID-19: Status: Acute Code(s): Z86.16 - Personal history of COVID-19 SNOMED Code(s): 261914663113554076 Reason for Hospitalization: Recovering from COVID, not drinking enough, became dehydrated. Prognosis/Condition at Discharge: Good. Stable. Medications at Discharge: Ambulatory Orders Medication Instructions Recorded atorvastatin 20 mg tablet 20 mg PO DAILY 12/20/18 tramadol 50 mg tablet 50 mg PO TID PRN 12/20/18 ropinirole 0.25 mg tablet 0.25 mg PO BEDTIME 10/21/20 acetaminophen 325 mg tablet 650 mg PO TID PRN #60 tab 10/23/20 (Tylenol) aspirin 81 mg tablet,delayed 81 mg PO DAILY #30 tab 10/23/20 release (Aspirin Low Dose) furosemide 20 mg tablet (Lasix) 20 mg PO DAILY PRN 02/17/21 hydroxyzine pamoate 25 mg capsule 25 mg PO BEDTIME 02/17/21 (Vistaril) potassium chloride 10 mEq 10 meq PO DAILY PRN 02/17/21 tablet,extended release(part/cryst) budesonide-formoterol HFA 80 2 puff INHALATION BID #18 g 02/24/21 mcg-4.5 mcg/actuation aerosol inhaler (Symbicort) cholecalciferol (vitamin D3) 125 125 mcg PO DAILY 30 Days #30 tab 02/24/21 mcg (5,000 unit) tablet (Vitamin D3) famotidine 40 mg tablet (Pepcid) 40 mg PO BID 30 Days #60 tab 02/24/21 losartan 50 mg tablet (Cozaar) 50 mg PO BID #60 tab 02/24/21 promethazine 6.25 mg-codeine 10 5 ml PO Q6H PRN #4 oz 02/24/21 mg/5 mL syrup zinc sulfate 50 mg zinc (220 mg) 50 mg PO DAILY 30 Days #30 cap 02/24/21 capsule (Zinc-220) tramadol 50 mg tablet 50 mg PO TID PRN 02/27/21 Lab/Diagnostics: Laboratory Tests 02/26/21 02/26/21 02/26/21 19:16 19:16 21:49 WBC 10.81 H RBC 5.24 Hgb 14.2 Hct 41.9 MCV 80.0 L MCH 27.1 MCHC 33.9 RDW Coeff of Eulalia 15.7 H Plt Count 202 Immature Gran % (Auto) 4.3 Neut % (Auto) 73.0 Lymph % (Auto) 14.8 [place] % (Auto) 7.7 Eos % (Auto) 0.0 Baso % (Auto) 0.2 Neut # (Auto) 7.9 H Lymph # (Auto) 1.6 [place] # (Auto) 0.8 Eos # (Auto) 0.0 Baso # (Auto) 0.0 Immature Gran # (Auto) 0.5 Sodium 134.1 L Potassium 4.49 Chloride 104.4 Carbon Dioxide 18.9 L Anion Gap 15.29 BUN 40.4 H Creatinine 1.07 Estimated GFR (MDRD) 49.00 BUN/Creatinine Ratio 37.75 Glucose 128.7 H Calcium 8.16 L Total Bilirubin 0.34 AST 20.6 ALT 19.2 Alkaline Phosphatase 61.7 Troponin I < 0.012 Total Protein 6.53 Albumin 3.64 Globulin 2.89 Albumin/Globulin Ratio 1.25 Urine Color Yellow Urine Clarity Clear Urine pH 5.0 Ur Specific [place] 1.020 Urine Protein Negative Urine Glucose (UA) Negative Urine Ketones Negative Urine Blood Negative Urine Nitrite Negative Urine Bilirubin Negative Urine Urobilinogen 0.2 Ur Leukocyte Esterase Negative 02/27/21 02/28/21 06:55 05:14 WBC RBC Hgb Hct MCV MCH MCHC RDW Coeff of Eulalia Plt Count Immature Gran % (Auto) Neut % (Auto) Lymph % (Auto) [place] % (Auto) Eos % (Auto) Baso % (Auto) Neut # (Auto) Lymph # (Auto) [place] # (Auto) Eos # (Auto) Baso # (Auto) Immature Gran # (Auto) Sodium 140.0 138.0 Potassium 3.80 4.74 Chloride 110.0 H 105.0 Carbon Dioxide 21.0 L 26.3 Anion Gap 12.80 11.44 BUN 30.0 H 22.4 H Creatinine 1.00 0.68 Estimated GFR (MDRD) 53.00 82.00 BUN/Creatinine Ratio 30.00 32.94 Glucose 95.0 133.5 H Calcium 8.10 L 9.20 Total Bilirubin AST ALT Alkaline Phosphatase Troponin I Total Protein Albumin Globulin Albumin/Globulin Ratio Urine Color Urine Clarity Urine pH Ur Specific [place] Urine Protein Urine Glucose (UA) Urine Ketones Urine Blood Urine Nitrite Urine Bilirubin Urine Urobilinogen Ur Leukocyte Esterase Education Provided to Patient and Family: Dehydration Follow-ups: With PCP soon. Discharge Disposition: Home Hospital Course: Elderly female recovering from COVID, still with poor appetite, not drinking enough water at home, became dehydrated. Rehydrated without complication. D/C home. Plan: Home with directions, recheck with PCP.
== END 2021-02-28 10:50 | disposition home or self-care (01) | DRG 179 ==
LOC: ED 18:22 → MEDSURG A 22:20
PROVIDERS: ADMIT Emergency Medicine; ATTEND Emergency Medicine
DX: R53.1 Weakness; D51.9 Vitamin B12 deficiency anemia, unspecified; E78.5 Hyperlipidemia, unspecified; D04 Carcinoma in situ of skin; I10 Essential (primary) hypertension; U07.1 COVID-19; E86.0 Dehydration; K21.9 Gastro-esophageal reflux disease without esophagitis

== ENCOUNTER 2021-05-19 04:31 | Inpatient (IN) ==
--- NOTE | 2021-05-19 04:51 | ED.PDOC ---
General ED Provider: Dr. CHICO HOLDER Chief Complaint: Chest Pain Stated Complaint: Comes to the ER with chest pain that lasted few seconds on the substernal area. [place] like a tear then felt like her heart was racing. She states that last week she had nausea and vomiting of black emesis and dark stool . Denies any other NSAIDS other than her regular EC 81mg Aspirin. She states that she has not been vaccinated but was admitted for 5 days with COVID in january 2021 Time Seen by Provider: 05/19/21 04:49 Mode of Arrival: Wheelchair Information Source: Patient Primary Care Provider: ALEAH SALES Nursing and Triage Documentation Reviewed and Agree: Yes Does patient meet sepsis criteria?: No If yes, has appropriate treatment been initiated?: No System Inflammatory Response Syndrome: Not Applicable Sepsis Protocol: For patient's 13 years and over: Temp is 96.8 and below OR 101 and greater Pulse >90 BPM Resp >20/minute Acutely Altered Mental Status Are patient's symptoms suggestive of a new infection, such as: -Pneumonia -Skin, Soft Tissue -Endocarditis -UTI -Bone, Joint Infection -Implantable Device -Acute Abdominal Infection -Wound Infection -Meningitis -Blood Stream Catheter Infection -Unknown Cardiovascular Complaint Exam Chest Pain Complaint/Exam Onset: Sudden Duration: Constant for few secounds then stopped Symptoms Are: Resolved Length of Chest Pain Episodes: few secounds Initial Severity: Severe Current Severity: None Location: Reports Midsternal Pain Radiates: Reports None Character: Reports Burning Aggravating: Reports None Alleviating: Reports Spontaneous resolution Associated Signs and Symptoms: Reports Palpitations Related Surgical History: Reports None Prior Care for this Complaint: No Recent Stress Test: No Recent Echo/LV Function: No JVD Present: No Subcutaneous Emphysema Present: No Diminshed Breath Sounds: No Reproducible Chest Wall Pain: No Bilateral Pulses Present: No Unequal Pulses Noted: No If Risk Factors for AMI/ACS Consider: EKG and Cardiac Enzymes Differential Diagnoses: ACS and GI Diseasae Quality Indicators For Acute [place] or Cardiac Chest Pain: EKG in 10min. Quality Indicator For Non-Traumatic Chest Pain/Syncope: EKG Performed Review of Systems Review Of Systems Constitutional: Reports No symptoms Eyes: Reports No symptoms Ears, Nose, Mouth, Throat: Reports No symptoms Respiratory: Reports No symptoms Cardiac: Reports Chest pain GI: Reports Other (Had a black emises and black stool last week.); Denies Nausea or Poor appetite : Reports No symptoms Musculoskeletal: Reports No symptoms Skin: Reports No symptoms Neurological: Reports Anxiety Endocrine: Reports No symptoms Hematologic/Lymphatic: Reports Anemia; Denies Blood clots, Easy bleeding or Easy bruising All Other Systems: Reviewed and Negative [facility] Medical History B12 deficiency anemia Chronic anemia Degenerative disc disease, lumbar Dehydration Detached retina, left Dyslipidemia GERD (gastroesophageal reflux disease) Hyperglycemia Hypertension Leg edema Melanoma PAC (premature atrial contraction) PVC's (premature ventricular contractions) Restless leg syndrome Family History Mother Cancer Other No known health problems Social History Smoking and tobacco status: Former smoker Surgical History History of bladder suspension procedure History of section History of esophageal surgery History of repair of hiatal hernia Status post appendectomy Status post hysterectomy Female Reproductive History Menstrual Hx Hysterectomy: No Hx Tubal Ligation: No Physical Exam Physical Exam Appearance: Reports Well-appearing Ill-appearing: None Pain Distress: None Eyes: Reports ROSY and EOMI ENT: Reports Nose normal and Oropharynx normal Neck: Supple Respiratory: Reports Airway patent, Breath sounds clear and Breath sounds equal Cardiovascular: Reports RRR and Pulses normal GI/: Reports Soft, Nontender, No masses and Other (Stool is brown. No mass on rectal examination. Stool for occult blood is negative.) Musculoskeletal: Reports Normal strength and ROM intact Skin: Reports Warm and Dry Neurological: Reports Sensation intact and Motor intact Psychiatric: Reports Affect appropriate Interpretation Radiology Interpretation Radiology Interpretation By: Radiologist Radiology Results: Negative Exam Interpreted: Portable CXR Front Desk Agent Rate: Normal Rhythm: Sinus Ectopy: None EKG Interpretation Time of EKG #1: 04:38 Rate: Normal (79) Rhythm: Sinus Ectopy: None [place]: NL ST Segment: Normal Interpretation: non specific ST Abnormalities Physician Notification Case Discussed Physician Notified: Dr Sales Time of Notification: 07:03 (ok to admit- full admission with anemia work up) Critical Care Note Critical Care Note Total Critical Care Time (mins): 0 Course Course Hematology/Chemistry: 05/19/21 04:59 05/19/21 04:59 Orders, Labs, Meds: Lab Review 05/19/21 05/19/21 05/19/21 04:59 04:59 06:00 WBC 4.10 L RBC 3.01 L Hgb 8.5 L Hct 26.8 L MCV 89.0 MCH 28.2 MCHC 31.7 L RDW Coeff of Eulalia 17.1 H Plt Count 160 Immature Gran % (Auto) 0.7 Neut % (Auto) 42.0 L Lymph % (Auto) 46.8 [place] % (Auto) 8.8 Eos % (Auto) 1.0 Baso % (Auto) 0.7 Neut # (Auto) 1.7 L Lymph # (Auto) 1.9 [place] # (Auto) 0.4 Eos # (Auto) 0.0 Baso # (Auto) 0.0 Immature Gran # (Auto) 0.0 Sodium 141.8 Potassium 3.80 Chloride 109.6 H Carbon Dioxide 26.7 Anion Gap 9.30 BUN 13.7 Creatinine 0.67 Estimated GFR (MDRD) 84.00 BUN/Creatinine Ratio 20.44 Glucose 106.6 H Calcium 9.41 Total Bilirubin 0.32 AST 22.8 ALT 16.3 Alkaline Phosphatase 58.3 Total Creatine Kinase 37.8 Troponin I < 0.012 Total Protein 6.34 Albumin 4.08 Globulin 2.26 Albumin/Globulin Ratio 1.80 Stl Occult Blood (IFOB) Stool Occult Blood #2 Stool Occult Blood #3 SARS CoV-2 RNA Rapid MATT Negative 05/19/21 06:10 WBC RBC Hgb Hct MCV MCH MCHC RDW Coeff of [place] Plt Count Immature Gran % (Auto) Neut % (Auto) Lymph % (Auto) [place] % (Auto) Eos % (Auto) Baso % (Auto) Neut # (Auto) Lymph # (Auto) [place] # (Auto) Eos # (Auto) Baso # (Auto) Immature Gran # (Auto) Sodium Potassium Chloride Carbon Dioxide Anion Gap BUN Creatinine Estimated GFR (MDRD) BUN/Creatinine Ratio Glucose Calcium Total Bilirubin AST ALT Alkaline Phosphatase Total Creatine Kinase Troponin I Total Protein Albumin Globulin Albumin/Globulin Ratio Stl Occult Blood (IFOB) Negative Stool Occult Blood #2 No specimen received Stool Occult Blood #3 No specimen received SARS CoV-2 RNA Rapid MATT Orders Category Date Time Status ADMIT PATIENT INPATIENT .TO [facility] (MONITORED BED) ADMISSION 05/19/21 07:06 Ordered EKG-(ED ONLY) Stat CARDIO 05/19/21 04:49 Completed EKG-(IP & OP ONLY) Routine CARDIO 05/19/21 13:00 Ordered OXYGEN Routine CARDIO 05/19/21 07:06 Ordered ACTIVITY .Up ad Yari CARE 05/19/21 07:07 Ordered INTAKE & OUTPUT Q8HR CARE 05/19/21 07:06 Ordered TELEMETRY MONITORING TELE CARE 05/19/21 07:06 Ordered VITAL SIGNS Q4HR CARE 05/19/21 07:07 Ordered VTE PREVENTION .SCD On AM/Off PM CARE 05/19/21 07:06 Ordered CARDIAC DIET DIETARY 05/19/21 Breakfast Ordered ED IV/MEDIPORT/POWERPORT .ONCE EMERGENCY 05/19/21 04:49 Active CBC W/ AUTO DIFF DAILY@0600 LAB 05/20/21 06:00 Ordered CBC W/ AUTO DIFF DAILY@0600 LAB 05/21/21 06:00 Ordered CBC W/ AUTO DIFF Stat LAB 05/19/21 04:59 Completed COMPREHENSIVE METABOLIC PANEL DAILY@0600 LAB 05/20/21 06:00 Ordered COMPREHENSIVE METABOLIC PANEL DAILY@0600 LAB 05/21/21 06:00 Ordered COMPREHENSIVE METABOLIC PANEL Stat LAB 05/19/21 04:59 Completed CREATINE KINASE Q8H LAB 05/19/21 13:15 Ordered CREATINE KINASE Q8H LAB 05/19/21 21:15 Ordered CREATINE KINASE Stat LAB 05/19/21 04:59 Completed FERRITIN Stat LAB 05/19/21 Ordered IRON AND TIBC Stat LAB 05/19/21 Ordered OCCULT BLOOD, STOOL Stat LAB 05/19/21 06:10 Completed TROPONIN I Q8H LAB 05/19/21 13:15 Ordered TROPONIN I Q8H LAB 05/19/21 21:15 Ordered TROPONIN I Stat LAB 05/19/21 04:59 Completed 0.9 % Sodium Chloride [Saline Flush] MEDS 05/19/21 04:49 Active 1 syr IVF PRN PRN Acetaminophen [Tylenol] MEDS 05/19/21 07:06 Ordered 650 mg PO Q4H PRN Ondansetron HCl/Pf [Zofran 4 mg/2 ml] MEDS 05/19/21 07:06 Ordered 4 mg IVP Q6H PRN Pantoprazole Sodium [Protonix IV] MEDS 05/19/21 05:51 Discontinued 40 mg IVP ONCE ONE Pantoprazole Sodium [Protonix IV] MEDS 05/19/21 17:00 Ordered 40 mg IVP Q12H RESUSCITATION STATUS Routine OTHERS 05/19/21 07:06 Ordered CHEST, 1V AP ONLY Stat RADS 05/19/21 04:49 Taken Medications Generic Name Dose Route Start Last Admin Trade Name Freq PRN Reason Stop Dose Admin Acetaminophen 650 mg 05/19/21 07:06 Acetaminophen 325 Mg Tablet PO Q4H PRN Fever and Mild Pain Ondansetron HCl 4 mg 05/19/21 07:06 Ondansetron Hcl/Pf 4 Mg/2 Ml Sdv IVP Q6H PRN Nausea / Vomiting Pantoprazole Sodium 40 mg 05/19/21 17:00 Pantoprazole Sodium 40 Mg Vial IVP Q12H RAMBO Sodium Chloride 1 syr 05/19/21 04:49 05/19/21 06:16 0.9% Sodium Chloride 10 Ml Disp.Syrin IVF 1 syr PRN PRN Administration To flush IV Discontinued Medications Generic Name Dose Route Start Last Admin Trade Name Freq PRN Reason Stop Dose Admin Pantoprazole Sodium 40 mg 05/19/21 05:51 05/19/21 06:15 Pantoprazole Sodium 40 Mg Vial IVP 05/19/21 05:52 40 mg ONCE ONE Administration Vital Signs: Temp Pulse Resp BP Pulse Ox 05/19/21 04:32 97.5 F L 84 20 156/65 H 100 VALERIE Risk Score Age >/= 65: Yes >/= 3 CAD Risk Factors: Yes Known CAD (Stenosis >/= 50%): No ASA Use in Past 7 Days: Yes Severe Angina (>/= 2 episodes in 24 hours): No EKG ST Changes >/= 0.5mm: No Postive Cardiac Marker: No AVLERIE Total Score: 3 VALERIE Risk Score: Risk Score Odds of by 30D 0 0.1 (0.1-0.2) 1 0.3 (0.2-0.3) 2 0.4 (0.3-0.5) 3 0.7 (0.6-0.9) 4 1.2 (1.0-1.5) 5 2.2 (1.9-2.6) 6 3.0 (2.5-3.6) 7 4.8 (3.8-6.1) Discharge Plan Discharge Patient Disposition: ADMITTED INPATIENT Discharge Problem: Chest pain, Anemia ED Provider: CHICO HOLDER Condition: Stable Physician Progress Note: []
[2021-05-19 05:11] LABS: BASOPHILS % (AUTO) 0.7 % (0.0-3.0); HEMATOCRIT 26.8 % (37.0-47.0); HEMOGLOBIN 8.5 g/dl (12.0-16.0); IMMATURE GRANULOCYTE % (AUTO) 0.7 % (0.0-5.0); LYMPHOCYTES # (AUTO) 1.9 K/uL (0.60-3.4); LYMPHOCYTES % (AUTO) 46.8 (10.0-50.0); MEAN CORPUSCULAR HEMOGLOBIN 28.2 pg (27.0-31.0); MEAN CORPUSCULAR HGB CONC 31.7 (31.8-35.4); MONOCYTES # (AUTO) 0.4 K/uL (0.4-2.0); MONOCYTES % (AUTO) 8.8 (0-10); NEUTROPHILS # (AUTO) 1.7 K/ul (2.0-6.9); PLATELET COUNT 160 10^3/uL (140-440); RDW COEFFICIENT OF VARIATION 17.1 % (11.6-14.8); RED BLOOD COUNT 3.01 10^6/ul (4.20-5.40)
[2021-05-19 05:15] LABS: ALANINE AMINOTRANSFERASE 16.3 U/L (0-35); ALBUMIN 4.08 g/dL (3.5-5.0); ALKALINE PHOSPHATASE 58.3 U/L (53-141); ASPARTATE AMINO TRANSFERASE 22.8 U/L (14-36); BILIRUBIN,TOTAL 0.32 mg/dL (0.2-1.3); BLOOD UREA NITROGEN 13.7 mg/dL (7-17); CALCIUM 9.41 mg/dL (8.4-10.2); CARBON DIOXIDE 26.7 mmol/L (22-30.0); CHLORIDE 109.6 mmol/L (98-107); CREATINE KINASE 37.8 U/L (30-135); CREATININE 0.67 mg/dL (0.60-1.30); GLUCOSE 106.6 mg/dL (74-106); SODIUM 141.8 mmol/L (134.5-145); TOTAL PROTEIN 6.34 g/dL (6.3-8.2)
[2021-05-19 05:27] LABS: TROPONIN I < 0.012 ng/ml (0.0000-0.120)
[2021-05-19] MEDS ORDERED: PROTONIX IV IVP ONE (05:51)
[2021-05-19 06:32] LABS: OCCULT BLOOD SAMPLE 1 NEGATIVE (NEGATIVE); OCCULT BLOOD SAMPLE 2 NO SPECIMEN RECEIVED (NEGATIVE); OCCULT BLOOD SAMPLE 3 NO SPECIMEN RECEIVED (NEGATIVE)
[2021-05-19] MEDS ORDERED: ZOFRAN 4 MG/2 ML IVP PRN (07:06)
[2021-05-19] MEDS ORDERED: TYLENOL PO PRN ×2 (07:06→08:20)
[2021-05-19 07:43] LABS: IRON 44.2 ug/dL (37-170)
[2021-05-19] MEDS ORDERED: NITROSTAT SL PRN (08:20)
[2021-05-19] MEDS ORDERED: ATROPINE SULFATE PFS IVP PRN (08:20)
--- NOTE | 2021-05-19 08:26 | DI ---
EXAM: Chest, single view HISTORY: Chest pain COMPARISON: 02/26/2021 FINDINGS / IMPRESSION: Cardiomediastinal countours appear stable. There is no focal pulmonary conso lidation. No pleural effusion or pneumothorax. No acute cardiopulmonary process.
[2021-05-19 08:48] VITALS: BMI 230.2
[2021-05-19] MEDS ORDERED: ULTRAM PO PRN (09:01)
[2021-05-19] MEDS: LIPITOR PO SCH (09:38)
[2021-05-19] MEDS: CARDIZEM PO SCH ×2 (09:38→20:08)
[2021-05-19] MEDS: COZAAR PO SCH ×2 (09:38→20:09)
[2021-05-19 10:22] LABS: BILIRUBIN,URINE Negative (NEGATIVE); CLARITY,URINE Clear (CLEAR); COLOR,URINE Yellow (YELLOW); GLUCOSE, URINE (UA) Negative (NEGATIVE); KETONES,URINE Negative (NEGATIVE); LEUKOCYTE ESTERASE ,URINE Negative (NEGATIVE); NITRITE,URINE Negative (NEGATIVE); PROTEIN,URINE Negative (NEGATIVE); URINE, BLOOD Negative (NEGATIVE); UROBILINOGEN,URINE 0.2 (0.2)
[2021-05-19] MEDS: ZITHROMAX PO SCH (12:27)
[2021-05-19] MEDS: DECADRON IM SCH (12:28)
[2021-05-19] MEDS: PRED FORTE 1% LEFTEYE SCH ×3 (12:29→20:10)
[2021-05-19 13:18] LABS: CREATINE KINASE 35.5 U/L (30-135)
[2021-05-19 13:31] LABS: TROPONIN I < 0.012 ng/ml (0.0000-0.120)
[2021-05-19] MEDS: PROTONIX IV IVP SCH (17:05)
[2021-05-19] MEDS: REQUIP PO SCH (20:08)
[2021-05-19] MEDS: SENNA PO SCH (20:09)
[2021-05-19] MEDS: COLACE PO SCH (20:09)
[2021-05-19] MEDS ORDERED: SENNOSIDES DOCUSATE SODIUM PO SCH (21:00)
[2021-05-19 21:59] LABS: CREATINE KINASE 31.1 U/L (30-135)
[2021-05-19 22:08] LABS: TROPONIN I < 0.012 ng/ml (0.0000-0.120)
[2021-05-19] MEDS ORDERED: ATIVAN PO ONE (22:09)
[2021-05-20] MEDS: PROTONIX IV IVP SCH ×2 (05:32→17:48)
[2021-05-20 05:33] LABS: BASOPHILS % (AUTO) 0.1 % (0.0-3.0); EOSINOPHILS % (AUTO) 0.1 % (0.0-7.0); HEMATOCRIT 31.2 % (37.0-47.0); HEMOGLOBIN 10.2 g/dl (12.0-16.0); IMMATURE GRANULOCYTE % (AUTO) 0.5 % (0.0-5.0); LYMPHOCYTES # (AUTO) 1.3 K/uL (0.60-3.4); LYMPHOCYTES % (AUTO) 14.6 (10.0-50.0); MEAN CORPUSCULAR HEMOGLOBIN 28.4 pg (27.0-31.0); MEAN CORPUSCULAR HGB CONC 32.7 (31.8-35.4); MEAN CORPUSCULAR VOLUME 86.9 fl (81.0-99.0); MONOCYTES # (AUTO) 0.3 K/uL (0.4-2.0); MONOCYTES % (AUTO) 3.6 (0-10); NEUTROPHILS # (AUTO) 7.1 K/ul (2.0-6.9); NEUTROPHILS % (AUTO) 81.1 % (42.2-75.2); PLATELET COUNT 124 10^3/uL (140-440); RDW COEFFICIENT OF VARIATION 17.2 % (11.6-14.8); RED BLOOD COUNT 3.59 10^6/ul (4.20-5.40); WHITE BLOOD COUNT 8.77 K/ul (4.6-10.2)
[2021-05-20 06:02] LABS: ALANINE AMINOTRANSFERASE 18.8 U/L (0-35); ALBUMIN 5.05 g/dL (3.5-5.0); ALKALINE PHOSPHATASE 67.3 U/L (53-141); ASPARTATE AMINO TRANSFERASE 23.7 U/L (14-36); BILIRUBIN,TOTAL 0.5 mg/dL (0.2-1.3); BLOOD UREA NITROGEN 14.9 mg/dL (7-17); CALCIUM 10.39 mg/dL (8.4-10.2); CARBON DIOXIDE 23.9 mmol/L (22-30.0); CHLORIDE 107.7 mmol/L (98-107); CREATININE 0.73 mg/dL (0.60-1.30); GLUCOSE 136.4 mg/dL (74-106); POTASSIUM 4.29 mmol/L (3.5-5.1); SODIUM 142.6 mmol/L (134.5-145); TOTAL PROTEIN 7.7 g/dL (6.3-8.2)
--- NOTE | 2021-05-20 09:06 | PCM.PROG ---
Attending Provider: ATTENDING PROVIDER: Dr. ALEAH SALES This patient is seen with Jayla Velasquez, Nurse Practitioner. DATE OF SERVICE: 05/20/21 SUBJECTIVE: This 85 year old /WHITE F was hospitalized 05/19/21. The patient is resting comfortable. HGB is up to 10.2 this morning. First stool was negative for blood. Chest x-ray and U/A was normal. She is afebrile. REVIEW OF SYSTEMS: CONSTITUTIONAL: No night sweats. No fatigue, malaise, lethargy. No fever or chills. Weakness. HEENT: Eyes: No visual changes. No eye pain. No eye discharge. ENT: No runny nose. No epistaxis. No sinus pain. No odynophagia. No congestion. RESPIRATORY: No cough, no congestion. No hemoptysis. No shortness of breath. CARDIOVASCULAR: No angina symptoms. No CHF symptoms. No atypical chest pain for CAD. No palpitations. No orthopnea.. GASTROINTESTINAL: No abdominal pain. No nausea or vomiting. No diarrhea or constipation. No hematemesis. No hematochezia. GENITOURINARY: No urgency. No frequency. No dysuria. No hematuria. No obstructive symptoms. No discharge. No pain. No significant abnormal bleeding. MUSCULOSKELETAL: No musculoskeletal pain; no joint swelling. NEUROLOGICAL: Awake, alert, oriented to time, place and person. No headache. No neck pain. No syncope. No seizures. No dizziness. PSYCHIATRIC: Not anxious. No depression. No suicidal thoughts. No homicidal thoughts. SKIN: No rash. No lesions. No wounds. ENDOCRINE: No unexplained weight loss. No weight gain. HEMATOLOGIC/LYMPHATIC: No anemia. No purpura. No petechiae. No prolonged or excessive bleeding. No palpable lymph nodes. PHYSICAL EXAMINATION: GENERAL: The patient is awake, alert and oriented, lying in bed in no distress. VITAL SIGNS: Temperature 97.6 F, Pulse 65, Respiratory Rate 20, BP 132/64, Pulse Ox 95% HEENT: Head normocephalic, atraumatic. Eyes: Extraocular muscles are intact. Pupils are equal, round and reactive to light and accommodation. Ears: No lesions. Nose appeared normal. Throat: No exudate or erythema. NECK: Supple. No JVD, no carotid bruit. No lymphadenopathy or thyromegaly. LUNGS: Diminished breath sounds. Clear to auscultation. Percussion note normal. Chest symmetrical. HEART: S1, S2, no S3. No murmurs. No cyanosis or clubbing. No ascites. Pulses: Dorsalis pedis and posterior tibial pulses +1 to +2 both sides. ABDOMEN: Soft. Non-tender. Bowel sounds active. No CVA tenderness. No mass felt. EXTREMITIES: No edema. Full range of motion of all extremities, equal. NEUROLOGIC: No focal deficit. Cranial nerves II through XII are grossly intact. No headache. No double vision. SKIN: Not dry. Intact. Turgor-normal. LYMPHATIC: No palpable lymph nodes/no lymphedema. MUSCULOSKELETAL: Normal joints with no swelling. Muscle tone is normal. LAB REVIEW: 05/20/21 04:55 05/20/21 04:55 05/20/21 04:55: Sodium 142.6, Potassium 4.29, Chloride 107.7 H, Carbon Dioxide 23.9, Anion Gap 15.29, BUN 14.9, Creatinine 0.73, Estimated GFR (MDRD) 76.00, BUN/Creatinine Ratio 20.41, Glucose 136.4 H, Calcium 10.39 H, Total Bilirubin 0.50, AST 23.7, ALT 18.8, Alkaline Phosphatase 67.3, Total Protein 7.70, Albumin 5.05 H, Globulin 2.65, Albumin/Globulin Ratio 1.90 05/20/21 04:55: WBC 8.77, RBC 3.59 L, Hgb 10.2 L, Hct 31.2 L, MCV 86.9, MCH 28.4, MCHC 32.7, RDW Coeff of Eulalia 17.2 H, Plt Count 124 L, Immature Gran % (Auto) 0.5, Neut % (Auto) 81.1 H, Lymph % (Auto) 14.6, [place] % (Auto) 3.6, Eos % (Auto) 0.1, Baso % (Auto) 0.1, Neut # (Auto) 7.1 H, Lymph # (Auto) 1.3, [place] # (Auto) 0.3 L, Eos # (Auto) 0.0, Baso # (Auto) 0.0, Immature Gran # (Auto) 0.0 05/19/21 21:17: Total Creatine Kinase 31.1, Troponin I < 0.012 05/19/21 13:04: Total Creatine Kinase 35.5, Troponin I < 0.012 05/19/21 09:51: Urine Color Yellow, Urine Clarity Clear, Urine pH 7.0, Ur Specific [place] 1.020, Urine Protein Negative, Urine Glucose (UA) Negative, Ur ine Ketones Negative, Urine Blood Negative, Urine Nitrite Negative, Urine Bilirubin Negative, Urine Urobilinogen 0.2, Ur Leukocyte Esterase Negative 05/19/21 05:00: Ferritin 18.90 ASSESSMENT: Please see below. 1. Anemia 2. Atypical chest pain consistent with GERD PLAN: 1. CT of abdomen and pelvis this morning 2. Continue IV Protonix 3. Denies taking any NSAIDS 4. Ativan 0.5mg at bedtime Plan and coordination of the patient's care discussed in the presence of Carbonation Equipment Operator and nurse. SCRIBED BY: Saeed ALEJANDRO scribed while in presence of service performed by Dr. Sales/Jayla Velasquez APRN on 05/20/21 ([id number])
[2021-05-20] MEDS: PRED FORTE 1% LEFTEYE SCH ×4 (09:30→20:10)
[2021-05-20] MEDS: ZITHROMAX PO SCH (09:43)
[2021-05-20] MEDS: DECADRON IM SCH (09:43)
[2021-05-20] MEDS: COZAAR PO SCH ×2 (09:44→20:10)
[2021-05-20] MEDS: CARDIZEM PO SCH ×2 (09:44→20:09)
[2021-05-20] MEDS: LIPITOR PO SCH (09:44)
--- NOTE | 2021-05-20 13:32 | CT ---
EXAM: CT scan of the abdomen and pelvis with contrast HISTORY: Weight loss, anemia TECHNIQUE: Imaging of the abdomen pelvis was performed following the intravenous administration of c ontrast. 5 mm thin axial images and coronal and sagittal reconstructions were obtained. Comparison 11/05/2020. FINDINGS: No acute abnormalities are seen within the liver, spleen, pancreas. The proximal ureters are normal size. The small and large bowel loops are normal caliber. Diverticula are seen throughou t the descending colon and sigmoid colon without acute inflammation. There is no free fluid seen within the pelvis. There has been previous hysterectomy. The appendix w as not seen. No definite inflammatory changes are seen in the right lower quadrant. Lung bases are clear. No lytic or blastic lesions are seen within the osseous structures. IMPRESSION: There is no bowel obstruction or acute inflammatory change seen within the abdomen and p jorge. Diverticular disease of the distal colon without acute inflammation. Previous hysterectomy. All CT scans are performed using dose optimization techniques as appropriate to the performed exam an d include at least one of the following: Automated exposure control, adjustment of the mA and/or kV according t o size, and the use of iterative reconstruction technique.
[2021-05-20] MEDS: SENNA PO SCH (20:10)
[2021-05-20] MEDS: REQUIP PO SCH (20:10)
[2021-05-20] MEDS: COLACE PO SCH (20:10)
[2021-05-20] MEDS ORDERED: ATIVAN PO SCH (21:00)
[2021-05-21] MEDS: PROTONIX IV IVP SCH ×2 (06:05→16:45)
[2021-05-21 07:22] LABS: ALANINE AMINOTRANSFERASE 15.1 U/L (0-35); ALBUMIN 4.24 g/dL (3.5-5.0); ALKALINE PHOSPHATASE 50.4 U/L (53-141); ASPARTATE AMINO TRANSFERASE 24.5 U/L (14-36); BILIRUBIN,TOTAL 0.43 mg/dL (0.2-1.3); BLOOD UREA NITROGEN 28.1 mg/dL (7-17); CALCIUM 9.92 mg/dL (8.4-10.2); CARBON DIOXIDE 22.9 mmol/L (22-30.0); CREATININE 0.75 mg/dL (0.60-1.30); GLUCOSE 119.4 mg/dL (74-106); POTASSIUM 4.15 mmol/L (3.5-5.1); SODIUM 138.1 mmol/L (134.5-145); TOTAL PROTEIN 6.47 g/dL (6.3-8.2)
[2021-05-21 07:51] LABS: HEMATOCRIT 26.4 % (37.0-47.0); HEMOGLOBIN 8.5 g/dl (12.0-16.0); IMMATURE GRANULOCYTE # (AUTO) 0.1 (0.0-1.0); IMMATURE GRANULOCYTE % (AUTO) 0.6 % (0.0-5.0); LYMPHOCYTES # (AUTO) 1.9 K/uL (0.60-3.4); LYMPHOCYTES % (AUTO) 16.3 (10.0-50.0); MEAN CORPUSCULAR HEMOGLOBIN 28.3 pg (27.0-31.0); MEAN CORPUSCULAR HGB CONC 32.2 (31.8-35.4); MONOCYTES # (AUTO) 0.6 K/uL (0.4-2.0); MONOCYTES % (AUTO) 5.1 (0-10); NEUTROPHILS # (AUTO) 9.2 K/ul (2.0-6.9); RDW COEFFICIENT OF VARIATION 17.8 % (11.6-14.8); WHITE BLOOD COUNT 11.79 K/ul (4.6-10.2)
[2021-05-21 07:53] LABS: PLATELET COUNT 212 10^3/uL (140-440)
[2021-05-21] MEDS: PRED FORTE 1% LEFTEYE SCH ×4 (08:20→20:16)
[2021-05-21] MEDS: LIPITOR PO SCH (08:21)
[2021-05-21] MEDS: CARDIZEM PO SCH ×2 (08:21→20:15)
[2021-05-21] MEDS: ZITHROMAX PO SCH (08:21)
[2021-05-21] MEDS: COZAAR PO SCH ×2 (08:22→20:15)
[2021-05-21] MEDS: DECADRON IM SCH (08:22)
[2021-05-21] MEDS: SENNA PO SCH (20:15)
[2021-05-21] MEDS: REQUIP PO SCH (20:15)
[2021-05-21] MEDS: COLACE PO SCH (20:15)
[2021-05-21] MEDS ORDERED: NON-FORMULARY MEDICATION (Doxylamine Succinate [Unisom (Doxylamine)] 25 mg Tablet) PO SCH (21:00)
[2021-05-22] MEDS: PROTONIX IV IVP SCH (04:44)
[2021-05-22 05:31] VITALS: BP 126/57; TEMP 97.6
[2021-05-22 06:22] LABS: BASOPHILS % (AUTO) 0.1 % (0.0-3.0); HEMATOCRIT 30.6 % (37.0-47.0); HEMOGLOBIN 9.7 g/dl (12.0-16.0); IMMATURE GRANULOCYTE # (AUTO) 0.1 (0.0-1.0); IMMATURE GRANULOCYTE % (AUTO) 0.6 % (0.0-5.0); LYMPHOCYTES # (AUTO) 2.1 K/uL (0.60-3.4); LYMPHOCYTES % (AUTO) 17.2 (10.0-50.0); MEAN CORPUSCULAR HEMOGLOBIN 28.4 pg (27.0-31.0); MEAN CORPUSCULAR HGB CONC 31.7 (31.8-35.4); MEAN CORPUSCULAR VOLUME 89.5 fl (81.0-99.0); MONOCYTES # (AUTO) 0.5 K/uL (0.4-2.0); MONOCYTES % (AUTO) 4.4 (0-10); NEUTROPHILS # (AUTO) 9.6 K/ul (2.0-6.9); NEUTROPHILS % (AUTO) 77.7 % (42.2-75.2); PLATELET COUNT 162 10^3/uL (140-440); RDW COEFFICIENT OF VARIATION 17.6 % (11.6-14.8); RED BLOOD COUNT 3.42 10^6/ul (4.20-5.40); WHITE BLOOD COUNT 12.29 K/ul (4.6-10.2)
[2021-05-22 06:34] LABS: ALANINE AMINOTRANSFERASE 14.9 U/L (0-35); ALBUMIN 4.43 g/dL (3.5-5.0); ALKALINE PHOSPHATASE 51.8 U/L (53-141); ASPARTATE AMINO TRANSFERASE 22.1 U/L (14-36); BILIRUBIN,TOTAL 0.47 mg/dL (0.2-1.3); BLOOD UREA NITROGEN 26.9 mg/dL (7-17); CALCIUM 9.54 mg/dL (8.4-10.2); CARBON DIOXIDE 25.1 mmol/L (22-30.0); CREATININE 0.73 mg/dL (0.60-1.30); GLUCOSE 111.3 mg/dL (74-106); POTASSIUM 4.28 mmol/L (3.5-5.1); SODIUM 139.7 mmol/L (134.5-145); TOTAL PROTEIN 6.88 g/dL (6.3-8.2)
[2021-05-22 08:45] LABS: ABSOLUTE RETICS # 0.2047; RETICULOCYTE % 5.95 %; RETICULOCYTE HEMOGLOBIN 29.2
[2021-05-22 08:59] LABS: IRON 42.5 ug/dL (37-170)
[2021-05-22] MEDS: PRED FORTE 1% LEFTEYE SCH (09:10)
[2021-05-22] MEDS: CARDIZEM PO SCH (09:11)
[2021-05-22] MEDS: COZAAR PO SCH (09:12)
[2021-05-22] MEDS: LIPITOR PO SCH (09:12)
[2021-05-22] MEDS: DECADRON IM SCH (09:13)
[2021-05-22 09:24] LABS: FERRITIN 22.5 ng/mL (11.1-264.0)
--- NOTE | 2021-05-22 09:30 | PCM.PROG ---
Attending Provider: ATTENDING PROVIDER: Dr. ALEAH SALES This patient is seen with Jayla Velasquez, Nurse Practitioner. DATE OF SERVICE: 05/22/21 SUBJECTIVE: This 85 year old /WHITE F was hospitalized 05/19/21. The patient has been eating well. UP and about ready to go home. Hgb is stable up from y . We will discontinue Aspirin at home and continue Protonix. REVIEW OF SYSTEMS: CONSTITUTIONAL: No night sweats. Fatigue. No fever or chills. HEENT: Eyes: No visual changes. No eye pain. No eye discharge. ENT: No runny nose. No epistaxis. No sinus pain. No odynophagia. No congestion. RESPIRATORY: No cough, no congestion. No hemoptysis. No shortness of breath. CARDIOVASCULAR: No angina symptoms. No CHF symptoms. No atypical chest pain for CAD. No palpitations. No orthopnea.. GASTROINTESTINAL: No abdominal pain. No nausea or vomiting. No diarrhea or constipation. No hematemesis. No hematochezia. GENITOURINARY: No urgency. No frequency. No dysuria. No hematuria. No obstructive symptoms. No discharge. No pain. No significant abnormal bleeding. MUSCULOSKELETAL: No musculoskeletal pain; no joint swelling. NEUROLOGICAL: Awake, alert, oriented to time, place and person. No headache. No neck pain. No syncope. No seizures. No dizziness. PSYCHIATRIC: Not anxious. No depression. No suicidal thoughts. No homicidal thoughts. SKIN: No rash. No lesions. No wounds. ENDOCRINE: No unexplained weight loss. No weight gain. HEMATOLOGIC/LYMPHATIC: No anemia. No purpura. No petechiae. No prolonged or excessive bleeding. No palpable lymph nodes. PHYSICAL EXAMINATION: GENERAL: The patient is awake, alert and oriented, sitting in bed in no distress. VITAL SIGNS: Temperature 97.6 F, Pulse 67, Respiratory Rate 18, BP 126/57, Pulse Ox 96% HEENT: Head normocephalic, atraumatic. Eyes: Extraocular muscles are intact. Pupils are equal, round and reactive to light and accommodation. Ears: No lesions. Nose appeared normal. Throat: No exudate or erythema. NECK: Supple. No JVD, no carotid bruit. No lymphadenopathy or thyromegaly. LUNGS: Clear to auscultation. Percussion note normal. Chest symmetrical. HEART: S1, S2, no S3. No murmurs. No cyanosis or clubbing. No ascites. Pulses: Dorsalis pedis and posterior tibial pulses +1 to +2 both sides. ABDOMEN: Soft. Non-tender. Bowel sounds active. No CVA tenderness. No mass felt. EXTREMITIES: No edema. Full range of motion of all extremities, equal. NEUROLOGIC: No focal deficit. Cranial nerves II through XII are grossly intact. No headache. No double vision. SKIN: Not dry. Intact. Turgor-normal. LYMPHATIC: No palpable lymph nodes/no lymphedema. MUSCULOSKELETAL: Normal joints with no swelling. Muscle tone is normal. LAB REVIEW: 05/22/21 06:21 05/22/21 06:21 05/22/21 06:21: Sodium 139.7, Potassium 4.28, Chloride 109.0 H, Carbon Dioxide 25.1, Anion Gap 9.88, BUN 26.9 H, Creatinine 0.73, Estimated GFR (MDRD) 76.00, BUN/Creatinine Ratio 36.84, Glucose 111.3 H, Calcium 9.54, Total Bilirubin 0.47, AST 22.1, ALT 14.9, Alkaline Phosphatase 51.8 L, Total Protein 6.88, Albumin 4.43, Globulin 2.45, Albumin/Globulin Ratio 1.80 05/22/21 06:21: WBC 12.29 H, RBC 3.42 L, Hgb 9.7 L, Hct 30.6 L, MCV 89.5, MCH 28.4, MCHC 31.7 L, RDW Coeff of Eulalia 17.6 H, Plt Count 162, Immature Gran % (Auto) 0.6, Neut % (Auto) 77.7 H, Lymph % (Auto) 17.2, [place] % (Auto) 4.4, Eos % (Auto) 0.0, Baso % (Auto) 0.1, Neut # (Auto) 9.6 H, Lymph # (Auto) 2.1, [place] # (Auto) 0.5, Eos # (Auto) 0.0, Baso # (Auto) 0.0, Immature Gran # (Auto) 0.1 ASSESSMENT: Please see below. 1. Anemia 2. GERD PLAN: 1. Anemia profile 2. Discharge home 3. Protonix 40mg BID 4. Discontinue Aspirin 5. Followup in office next week, has an appointment on the 4th Plan and coordination of the patient's care discussed in the presence of Buckle Frame Shaper and nurse. SCRIBED BY: Felipe ALEJANDROist scribed while in presence of service performed by Dr. Sales/Jayla Velasquez APRN on 05/22/21 ([id number])
[2021-05-22 09:55] LABS: FOLATE 10.2 ng/mL
--- NOTE | 2021-05-27 11:14 | PN ---
DATE OF SERVICE: 05/19/21 ADMIT NOTE SUBJECTIVE: The patient was seen in the emergency room with cough and congestion. The patient is COVID negative. The other problem the patient has the patient's hgb was close to 14 now it is 8.5. The patient's stools are guaiac negative. The patient gave questionable history of having vomitus which was coffee ground days ago but after that she didn't have it. Chest pain is atypical more like esophageal spasm. REVIEW OF SYSTEMS: CONSTITUTIONAL: No night sweats. No fatigue, malaise, lethargy. No fever or chills. HEENT: Eyes: No visual changes. No eye pain. No eye discharge. ENT: No runny nose. No epistaxis. No sinus pain. No sore throat. No odynophagia. No congestion. RESPIRATORY: No cough, no congestion. No hemoptysis. No shortness of breath. CARDIOVASCULAR: No angina symptoms. No CHF symptoms. No atypical chest pain for CAD. No palpitations. No PND. No orthopnea. GASTROINTESTINAL: No abdominal pain. No nausea or vomiting. No diarrhea or constipation. No hematemesis. No hematochezia. GENITOURINARY: No urgency. No frequency. No dysuria. No hematuria. No obstructive symptoms. No discharge. No pain. No significant abnormal bleeding. MUSCULOSKELETAL: No musculoskeletal pain; no joint swelling. NEUROLOGICAL: No headache. No neck pain. No syncope. No seizures. No dizziness. PSYCHIATRIC: Not anxious. No depression. No suicidal thoughts. No homicidal thoughts. SKIN: No rash. No lesions. No wounds. ENDOCRINE: No unexplained weight loss. No weight gain. HEMATOLOGIC/LYMPHATIC: No anemia. No purpura. No petechiae. No prolonged or excessive bleeding. No palpable lymph nodes. PHYSICAL EXAMINATION: HEENT: Head normocephalic, atraumatic. Eyes: Extraocular muscles are intact. Pupils are equal, round and reactive to light and accommodation. Ears: No lesions. Nose appeared normal. Throat: No exudate or erythema. NECK: Supple. No JVD, no carotid bruit. No lymphadenopathy or thyromegaly. LUNGS: Clear to auscultation. Percussion note normal. Chest symmetrical. HEART: S1, S2, no S3. No murmurs. No cyanosis or clubbing. No ascites. Pulses: Dorsalis pedis and posterior tibial pulses +1 to +2 bilaterally. ABDOMEN: Soft. Nontender. Bowel sounds active. No CVA tenderness. No mass felt. EXTREMITIES: No edema. Full range of motion of all extremities, equal. NEUROLOGIC: No focal deficit. Cranial nerves II through XII are grossly intact. No headache. No double vision. SKIN: Not dry. Intact. Turgor - normal with pale LYMPHATIC: No palpable lymph nodes/no lymphedema. MUSCULOSKELETAL: Normal joints with no swelling. Muscle tone is normal. ASSESSMENT: 1. Acute bronchitis 2. Anemia with drop of hgb from 14 to 8.5. No evidence of active GI bleed PLAN: 1. Continue IV Zithromax 2. Carafate to be added 3. Monitor CBC and CMP 4. Will monitor telemetry 5. CT scan of the abdomen with contrast in the morning 6. The patient was DNI TIME SPENT: More than 30 minutes. Plan and coordination of the patient's care discussed in the presence of nurse. JOSHUA
--- NOTE | 2021-05-27 12:41 | PN ---
DATE OF SERVICE: 05/20/21 SUBJECTIVE: The patient was seen and examined with the Nurse Practitioner. The patient's condition has improved. She is feeling better. In fact her hgb and hct has gone up and hgb is 10 with hct of more than 30. No evidence of active GI bleed. Chest pain no evidence of active WI or any acute myocardial event. TIME SPENT: More than 30 minutes. Plan and coordination of the patient's care discussed in the presence of nurse. JOSHUA
--- NOTE | 2021-05-27 13:28 | PN ---
DATE OF SERVICE: 05/21/21 SUBJECTIVE: 85 year old white female hospitalized with chest pain and anemia. The patient's condition is stable. She is feeling better and wants to go home. Daughter is present in the room. REVIEW OF SYSTEMS: CONSTITUTIONAL: No night sweats. No fatigue, malaise, lethargy. No fever or chills. HEENT: Eyes: No visual changes. No eye pain. No eye discharge. ENT: No runny nose. No epistaxis. No sinus pain. No sore throat. No odynophagia. No congestion. RESPIRATORY: No cough, no congestion. No hemoptysis. No shortness of breath. CARDIOVASCULAR: No angina symptoms. No CHF symptoms. No atypical chest pain for CAD. No palpitations. No PND. No orthopnea. GASTROINTESTINAL: No abdominal pain. No nausea or vomiting. No diarrhea or constipation. No hematemesis. No hematochezia. Appetite has improved. GENITOURINARY: No urgency. No frequency. No dysuria. No hematuria. No obstructive symptoms. No discharge. No pain. No significant abnormal bleeding. MUSCULOSKELETAL: No musculoskeletal pain; no joint swelling. NEUROLOGICAL: No headache. No neck pain. No syncope. No seizures. No dizziness. PSYCHIATRIC: Not anxious. No depression. No suicidal thoughts. No homicidal thoughts. SKIN: No rash. No lesions. No wounds. ENDOCRINE: No unexplained weight loss. No weight gain. HEMATOLOGIC/LYMPHATIC: No anemia. No purpura. No petechiae. No prolonged or excessive bleeding. No palpable lymph nodes. PHYSICAL EXAMINATION: VITAL SIGNS: Temperature 97.6, pulse 67, Respiratory rate 18, blood pressure 120/50 and pulse ox 96% HEENT: Head normocephalic, atraumatic. Eyes: Extraocular muscles are intact. Left eye with melanoma. Pupils are equal, round and reactive to light and accommodation. Ears: No lesions. Nose appeared normal. Throat: No exudate or erythema. NECK: Supple. No JVD, no carotid bruit. No lymphadenopathy or thyromegaly. LUNGS: Decreased breath sounds but clear to auscultation. Percussion note normal. Chest symmetrical. HEART: S1, S2, no S3. No murmurs. No cyanosis or clubbing. No ascites. Pulses: Dorsalis pedis and posterior tibial pulses +1 to +2 bilaterally. ABDOMEN: Soft. Nontender. Bowel sounds active. No CVA tenderness. No mass felt. EXTREMITIES: No edema. Full range of motion of all extremities, equal. NEUROLOGIC: No focal deficit. Cranial nerves II through XII are grossly intact. No headache. No double vision. SKIN: Not dry. Intact. Turgor - normal. LYMPHATIC: No palpable lymph nodes/no lymphedema. MUSCULOSKELETAL: Normal joints with no swelling. Muscle tone is normal. LABS: hgb 10.2, hct 31, WBC 8,700 normal differential CONDITION: Stable ASSESSMENT: 1. Chest pain, absent, Cardiovascular status stable. no evidence of DC or ischemia TIME SPENT: More than 30 minutes. Plan and coordination of the patient's care discussed in the presence of nurse. JOSHUA
--- NOTE | 2021-06-17 10:27 | HP ---
DATE OF SERVICE: 05/19/21 REASON FOR HOSPITALIZATION/HISTORY OF PRESENT ILLNESS: 85 year old white female who presents to the ER complaining of chest pain last a few seconds in substernal area then felt like she was having some heart racing. Last week she had nausea and vomiting with dark stool and black emesis. She denies taking any NSAIDS other than her regular Aspirin. She had COVID in January of 2021. 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 Noguera at [facility] Detached retina of the left eye, see Dr. Bahena in [place] Dependant leg edema PAST SURGICAL HISTORY: Hiatal hernia repair REVIEW OF SYSTEMS: CONSTITUTIONAL: No night sweats. No fatigue, malaise, lethargy. No fever or chills. HEENT: Eyes: No visual changes. No eye pain. No eye discharge. ENT: No runny nose. No epistaxis. No sinus pain. No sore throat. No odynophagia. No ear pain. No congestion. RESPIRATORY: No cough, no congestion. No hemoptysis. No shortness of breath. CARDIOVASCULAR: No angina symptoms. No CHF symptoms. No atypical chest pain for CAD. No palpitations. No PND. No orthopnea. GASTROINTESTINAL: No abdominal pain. No nausea or vomiting. No diarrhea or constipation. No hematemesis. No hematochezia. GENITOURINARY: No urgency. No frequency. No dysuria. No hematuria. No obstructive symptoms. No discharge. No pain. No significant abnormal bleeding. MUSCULOSKELETAL: No musculoskeletal pain. No joint swelling. No arthritis. NEUROLOGICAL: No headache. No neck pain. No syncope. No seizures. No dizziness. PSYCHIATRIC: Not anxious. No depression. No suicidal thoughts. No homicidal thoughts. SKIN: No rash. No lesions. No wounds. ENDOCRINE: No unexplained weight loss. No weight gain. HEMATOLOGIC/LYMPHATIC: No anemia. No purpura. No petechiae. No prolonged or excessive bleeding. No palpable lymph nodes. PERSONAL/FAMILY/SOCIAL HISTORY: She is and lives at home by herself. She performs all ADLs. Nonsmoker. No alcohol or illicit drug use. MEDICATIONS: Atorvastatin 20mg PO daily Ropinirole 0.25mg at bedtime Aspirin 81mg PO daily Cozaar 50mg PO BID Tramadol 50mg PO TID PRN Stool Softener Laxative 806-50mg one tablet capsule PO bedtime Diltiazem 60mg PO BID Prednisolone 1 drop left eye QID Ketorolac one drop left eye QID Doxylamine succinate 25mg PO bedtime ALLERGIES: No known allergies PHYSICAL EXAMINATION: VITAL SIGNS: Temperature 97.5, heart rate 84, respiratory rate 20, blood pressure 156/65 and oxygen saturation 100% on room air. HEENT: Head normocephalic, atraumatic. Eyes: Extraocular muscles are intact. Pupils are equal, round and reactive to light and accommodation. Ears: No lesions. Nose appeared normal. Throat: No exudate or erythema. NECK: Supple. No JVD, no carotid bruit. No lymphadenopathy or thyromegaly. LUNGS: Diminished breath sounds. Clear to auscultation. Percussion note normal. Chest symmetrical. HEART: S1, S2, no S3. No murmur. No cyanosis or clubbing. No ascites. Pulses: Dorsalis pedis and posterior tibial pulses +1 to +2 bilaterally. ABDOMEN: Soft. Nontender. Bowel sounds active. No CVA tenderness. No mass felt. Epigastric tenderness. EXTREMITIES: No edema. Full range of motion of all extremities, equal. NEUROLOGIC: No focal deficit. Cranial nerves II through XII are grossly intact. No headache, no double vision or headache. SKIN: Not dry. Intact. Turgor - normal. LYMPHATIC: No palpable lymph nodes/no lymphedema. MUSCULOSKELETAL: Normal joints with no swelling. Muscle tone is normal. LABS: WBC 4.1, hgb 8.5, hct 26.8, plt count 160, sodium 141, potassium 3.8, BUN 13, creatinine 0.67, glucose 106. COVID PCR is negative. Initial stool for blood is was negative. Chest x-ray is normal. Cardiac enzymes are normal. ASSESSMENT: 1. Anemia 2. Atypical chest pain 3. History of COPD PLAN: 1. We will admit 2. Routine telemetry orders 3. CBC and CMP daily 4. Start Protonix 40mg IV Q [address] of abdomen and pelvis with and without contrast in the morning 6. Zofran 4mg IV Q 6 hours PRN 7. Discontinue Aspirin 8. Anemia profile 9. Continue with stool for blood 10.Regular diet 11.Oxygen at 1-2 liters as needed 12.We will follow closely. TIME SPENT: More than 70 minutes. MTDD
--- NOTE | 2021-06-17 10:47 | DS ---
DATE OF SERVICE: 05/22/21 FINAL DIAGNOSIS: 1. Anemia 2. Atypical chest pain 3. GERD DISCHARGE INSTRUCTIONS: Discharge home. Followup with Dr. Mckinney on May 30 at 8:30am. MEDICATIONS AT DISCHARGE: Atorvastatin 20mg Po daily Ropinirole 0.25mg PO bedtime Cozaar 50mg PO BID Tramadol 50mg PO TID PRN Stool softener one table PO BEDTIME Diltiazem 60mg PO BID Prednisolone one drop left eye QID Ketorolac one drip left eye QID Doxylamine succinate 25mg PO bedtime NEW PRESCRIPTIONS: Protonix 40mg Twice a day start tonight DISCONTINUED MEDICATIONS: Aspirin DIET INSTRUCTIONS: Resume as tolerated ACTIVITY: Resume as tolerated HOSPITAL COURSE: 85 year old white female who presented to the emergency room complaining of sharp epigastric pain and stated that she had had some dark stools and emesis several days before. Denies taking any NSAIDS. Does take a daily Aspirin. She had a negative stool for blood initially in the ER and initially hgb was 8.5. We started her on Protonix IV and did an anemia profile. Discontinued her Aspirin. Also added some Carafate while she was here. She has not had any trouble swallowing since being here. All cardiac enzymes are negative. Telemetry was normal. Pain has steadily improved each day. Nausea has resolved. She has had no dark stools, no emesis. Again, stool for blood is normal. She declines GI referral. Hgb has improved to 9.7. Today on day of discharge we will continue with Protonix 40mg BID at home and instructed her to continue with no NSAIDS while at home. We will discharge her in stable condition and followup with in the office next week. TIME SPENT: More than 60 minutes. MTDD
== END 2021-05-22 10:00 | disposition home or self-care (01) | DRG 313 ==
LOC: ED 04:31 → MEDSURG A 07:55
PROVIDERS: ADMIT Internal Medicine; ATTEND Internal Medicine
DX: J20.9 Acute bronchitis, unspecified; R07.89 Other chest pain; Z86.16 Personal history of COVID-19; Z79.899 Other long term (current) drug therapy; J84.9 Interstitial pulmonary disease, unspecified; Z51.81 Encounter for therapeutic drug level monitoring; J44.9 Chronic obstructive pulmonary disease, unspecified; R00.0 Tachycardia, unspecified; I10 Essential (primary) hypertension; E78.5 Hyperlipidemia, unspecified; F41.9 Anxiety disorder, unspecified; Z20.822 Contact with and (suspected) exposure to COVID-19; K21.9 Gastro-esophageal reflux disease without esophagitis; D64.9 Anemia, unspecified; R00.2 Palpitations; D51.9 Vitamin B12 deficiency anemia, unspecified; Z79.01 Long term (current) use of anticoagulants; I51.7 Cardiomegaly

== ENCOUNTER 2023-08-22 06:18 | Observation (INO) ==
--- NOTE | 2023-08-22 06:35 | ED.PDOC ---
General ED Provider: Dr. PAGE CONTE DO Chief Complaint: Weakness Stated Complaint: Patient is a 87 yo F here for stroke like symptoms Patient reports that she gets up every hour to go to the bathroom and at 1130 last night she felt uncoordinated and weak in BL LE No falls or injuries No recent surgeries No hx of ACS, CVA, VTE Her accucheck here s 120+ BP 169/70 Patient alert and oriented x4 GCS 15 speaking in full senteces on room air spo2 97% Daughter brought her by POV She had a viral ilness 1-2 weeks ago She has a L eye abnormality after previous surgical complication NIHSS zero patient amenable to full work up Time Seen by Provider: 08/22/23 07:00 Primary Care Provider: ALEAH SALES MD Nursing and Triage Documentation Reviewed and Agree: Yes What is Opioid Naive?: *Opioid Naive implies the patient is not already taking opioids or not chronically receiving opioids on a daily basis. *PRN dosing is not "usually" associated with tolerance. *Patients are at higher risk of over-sedation and aspiration. What is Opioid Tolerant?: *Opioid Tolerance implies less than the expected response to an opioid. *Acquired tolerance is defined by the patient taking 60mg of oral morphine daily (or equianalgesic dose of another opioid) for 1 week or more. *Often associated with chronic pain. *May take more than usual dose to achieve desired pain control. Review of Systems Review Of Systems Constitutional: Denies Chills or Fever Eyes: Denies Blindness or Vision change Ears, Nose, Mouth, Throat: Denies Ear pain or Nose pain Respiratory: Denies Cough or Wheezing Cardiac: Denies Chest pain or Palpitations GI: Denies Abdominal pain, Diarrhea or Vomiting : Denies Burning, Dysuria or Discharge Musculoskeletal: Reports Other (LE wekaness); Denies Back pain or Joint pain Skin: Denies Bruising or Rash Neurological: Denies Anxiety or Depressed Endocrine: Reports No symptoms Hematologic/Lymphatic: Reports No symptoms All Other Systems: Reviewed and Negative [facility] Medical History History of COVID-19 01/2021 with Hospitalization Z86.16 - Personal history of COVID-19 (ICD-10) Detached retina 02/2020 H33.20 - Serous retinal detachment, unspecified eye (ICD-10) Sacral fracture S32.10XA - Unspecified fracture of sacrum, initial encounter for closed fracture (ICD-10) Confusion r/t covid R41.0 - Disorientation, unspecified (ICD-10) Chest pain R07.9 - Chest pain, unspecified (ICD-10) Weakness R53.1 - Weakness (ICD-10) Leg edema R60.0 - Localized edema (ICD-10) PAC (premature atrial contraction) I49.1 - Atrial premature depolarization (ICD-10) Fever R50.9 - Fever, unspecified (ICD-10) Detached retina, 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/2020 H33.22 - Serous retinal detachment, left eye (ICD-10) Family History Mother Cancer Other No known health problems Social History Smoking and tobacco status: Former smoker Alcohol intake: never Substance use type: does not use Special gabby needs: No Agree to transfusion: Yes Adopted: No Caregiver/support person: No Foster care: No Household members: children Housing: house Marital status: U UNKNOWN Lives independently: Yes Number of children: 3 service: No snf: No History of recent travel: No Do you think of yourself as: straight/heterosexual Current gender identity: female Seatbelt use: always Drives intoxicated or rides with intoxicated class b truck driver: No Water heater temperature set < 120 degrees: Yes Working smoke detector in home: Yes Fire extinguisher in home: Yes Carbon monoxide detector in home: Yes Surgical History History of repair of hiatal hernia Z98.890 - Other specified postprocedural states (ICD-10) Z87.19 - Personal history of other diseases of the digestive system (ICD-10) History of bladder suspension procedure Z98.890 - Other specified postprocedural states (ICD-10) Z87.448 - Personal history of other diseases of urinary system (ICD-10) History of esophageal surgery Z98.890 - Other specified postprocedural states (ICD-10) Status post hysterectomy Z90.710 - Acquired absence of both cervix and uterus (ICD-10) History of section Z98.891 - History of uterine scar from previous surgery (ICD-10) Status post appendectomy Z90.49 - Acquired absence of other specified parts of digestive tract (ICD- 10) Female Reproductive History Menstrual Hx Hysterectomy: No Hx Tubal Ligation: No Physical Exam Physical Exam Appearance: Reports Well-appearing and Well-nourished Ill-appearing: Not Applicable Pain Distress: Not Applicable Eyes: Reports Other (L eye scarring from previous surgery, R eye intact) ENT: Reports Ears normal, Nose normal and Oropharynx normal Neck: Supple Respiratory: Reports Airway patent and Breath sounds clear; Denies Wheezes Cardiovascular: Reports RRR and Pulses normal GI/: Reports Soft and Nontender Musculoskeletal: Reports Normal strength and ROM intact Skin: Reports Warm and Dry Neurological: Reports Sensation intact, Motor intact, Cranial nerves intact, Alert and Oriented; Denies Focal Deficit or CN Palsy Psychiatric: Reports Affect appropriate and Mood appropriate Interpretation EKG Interpretation EKG Interpretation By: ED Physician Time of EKG #1: 06:53 Interpretation: NSR rate 66 no stemi qt wnl Course Course 08/23/23 05:09 08/23/23 05:09 Orders, Labs, Meds: Lab Review 08/22/23 08/22/23 08/22/23 06:53 06:55 08:00 WBC 6.51 RBC 5.10 Hgb 14.7 Hct 46.4 MCV 91.0 MCH 28.8 MCHC 31.7 L RDW Coeff of Eul[place] 14.1 Plt Count 173 Immature Gran % (Auto) 0.6 Neut % (Auto) 45.7 Lymph % (Auto) 47.0 [place] % (Auto) 5.8 Eos % (Auto) 0.3 Baso % (Auto) 0.6 Neut # (Auto) 3.0 Lymph # (Auto) 3.1 [place] # (Auto) 0.4 Eos # (Auto) 0.0 Baso # (Auto) 0.0 Immature Gran # (Auto) 0.0 PT 9.9 INR 0.95 APTT 23.4 L Sodium 143.9 Potassium 4.50 Chloride 106.5 Carbon Dioxide 28.8 Anion Gap 13.10 BUN 13.4 Creatinine 0.74 Estimated GFR (MDRD) 74.00 BUN/Creatinine Ratio 18.10 Glucose 107.4 H Hemoglobin A1c 5.75 Lactic Acid 1.17 Calcium 9.75 Total Bilirubin 0.72 AST 26.0 ALT 19.8 Alkaline Phosphatase 79.0 Troponin I < 0.012 Total Protein 7.78 Albumin 4.58 Globulin 3.20 Albumin/Globulin Ratio 1.43 Triglycerides 236.1 H Cholesterol 173.4 LDL Cholesterol, Calc 88 VLDL Cholesterol 47 H HDL Cholesterol 37.9 Cholesterol/HDL Ratio 4.6 TSH 2.980 D-Dimer 579.08 H Urine Color Yellow Urine Clarity Clear Urine pH 7.0 Ur Specific [place] 1.015 Urine Protein Negative Urine Glucose (UA) Negative Urine Ketones Negative Urine Blood Trace-intact H Urine Nitrite Negative Urine Bilirubin Negative Urine Urobilinogen 0.2 Ur Leukocyte Esterase 1+ H Urine Microscopic RBC 0-2 Urine Microscopic WBC 2-5 Ur Squamous Epith Cells Not present Adenovirus (PCR) Not detected B. pertussis DNA (PCR) Not detected B.parapertussis DNA PCR Not detected C. pneumoniae DNA (PCR) Not detected Coronavirus OC43 (PCR) Not detected Coronavirus HKU1 (PCR) Not detected Coronavirus 229E (PCR) Not detected Coronavirus NL63 (PCR) Not detected Human Metapneumovir PCR Not detected Influenza Type A (PCR) Not detected Influenza B (RT-PCR) Not detected M. pneumoniae (PCR) Not detected Parainfluenza 1 (PCR) Not detected Parainfluenza 2 (PCR) Not detected Parainfluenza 3 (PCR) Not detected Parainfluenza 4 (PCR) Not detected RSV (PCR) Not detected Entero/Rhino (PCR) Not detected SARS-CoV-2 (PCR) Not detected Orders Category Date Time Status ADMIT OBSERVATION [PLACE PATIENT OBSERVATION] .TO ADMISSION 08/22/23 09:59 Completed MEDSURG (MONITORED BED) EKG-(ED ONLY) Stat CARDIO 08/22/23 06:28 Completed NPO REMINDER: IMAGING ONCE CARE 08/22/23 06:58 Completed TELEMETRY MONITORING TELE CARE 08/22/23 09:59 Completed ED ACCUCHECK ASSESSMENT .ONCE EMERGENCY 08/22/23 06:28 Completed ED APPLY O2 .ONCE EMERGENCY 08/22/23 06:28 Completed ED DOLLY DRIVER APPLIED .ONCE EMERGENCY 08/22/23 06:28 Completed ED IV/MEDIPORT/POWERPORT .ONCE EMERGENCY 08/22/23 06:28 Completed CBC W/ AUTO DIFF Stat LAB 08/22/23 06:55 Completed COMPREHENSIVE METABOLIC PANEL Stat LAB 08/22/23 06:55 Completed D-DIMER Stat LAB 08/22/23 06:55 Completed LACTIC ACID Stat LAB 08/22/23 06:55 Completed PARTIAL THROMBOPLASTIN TIME Stat LAB 08/22/23 06:55 Completed PT WITH INR Stat LAB 08/22/23 06:55 Completed RESPIRATORY PANEL 2.1 (PCR) Stat LAB 08/22/23 06:53 Completed TROPONIN I Stat LAB 08/22/23 06:55 Completed UA [URINALYSIS C & S IF INDICATED] Stat LAB 08/22/23 08:00 Completed 0.9 % Sodium Chloride [Saline Flush] Meds 08/22/23 06:28 Discontinued 1 syr IVF PRN PRN Aspirin [Aspirin EC] Meds 08/22/23 07:50 Discontinued 325 mg PO ONCE STA CHEST, 2 VIEWS PA & LAT Stat RADS 08/22/23 06:[address] HEAD W/O CONTRAST Stat RADS 08/22/23 06:28 Completed CTA ANGIO HEAD Stat RADS 08/22/23 06:58 Completed CTA ANGIO NECK Stat RADS 08/22/23 06:58 Completed Medications Discontinued Medications Generic Name Dose Route Start Last Admin Trade Name Freq PRN Reason Stop Dose Admin Acetaminophen 650 mg 08/22/23 10:08 08/23/23 08:13 Acetaminophen 325 Mg Tablet PO 650 mg Q4H PRN Administration Mild Pain Alprazolam 1 mg 08/23/23 08:48 08/23/23 09:17 Alprazolam 0.5 Mg Tablet PO 08/23/23 08:49 1 mg ONCE ONE Administration Aspirin 325 mg 08/22/23 07:50 08/22/23 08:10 Aspirin 325 Mg Tablet. PO 08/22/23 07:51 325 mg ONCE STA Administration Atorvastatin Calcium 20 mg 08/22/23 11:30 08/23/23 08:13 Atorvastatin Calcium 20 Mg Tablet PO 20 mg DAILY RAMBO Administration Benzonatate 200 mg 08/22/23 11:19 Benzonatate 100 Mg Capsule PO TID PRN Cough Diltiazem HCl 60 mg 08/22/23 11:30 08/23/23 08:13 Diltiazem Hcl 60 Mg Tablet PO 60 mg Q12HR RAMBO Administration Escitalopram Oxalate 5 mg 08/23/23 09:00 08/23/23 08:12 Escitalopram Oxalate 10 Mg Tablet PO 5 mg DAILY RAMBO Administration Ferrous Sulfate 324 mg 08/22/23 21:00 08/23/23 08:13 Ferrous Sulfate 324 Mg Tablet. PO 324 mg BID RAMBO Administration Hydralazine HCl 10 mg 08/22/23 11:18 Hydralazine Hcl 20 Mg/Ml Sdv IVP Q6H PRN Hypertension Non-Formulary Medication 25 mg 08/22/23 21:00 08/22/23 20:18 Doxylamine Succinate [Unisom (Doxylamine)] PO 25 mg BEDTIME RAMBO Administration Pantoprazole Sodium 40 mg 08/22/23 11:30 08/23/23 05:21 Pantoprazole Sodium 40 Mg Tablet. PO 40 mg QDAC2 RAMBO Administration Ropinirole HCl 0.25 - 0.5 mg 08/22/23 21:00 08/22/23 20:18 Ropinirole Hcl 0.25 Mg Tablet PO 0.5 mg BEDTIME RAMBO Administration Sodium Chloride 1 syr 08/22/23 06:28 08/22/23 08:10 0.9% Sodium Chloride 10 Ml Disp.Syrin IVF 1 syr PRN PRN Administration To flush IV Tramadol HCl 50 mg 08/22/23 11:19 Tramadol Hcl 50 Mg Tablet PO TID PRN Pain Vital Signs: Temp Pulse Resp BP Pulse Ox 08/22/23 07:16 61 16 159/61 H 88 L 08/22/23 06:26 97.9 F 90 16 160/69 H 98 Patient care signed out SBAR for mat to Dr. Shonda Khoury called CT head negative Physician Progress Note: [] Discharge Plan Discharge Patient Disposition: PLACED OBSERVATION Discharge Problem: Stroke-like symptoms, Bilateral leg weakness Did you review [place] INSIDE PHONE SALES for ALL controlled substances?: Not Applicable ED Provider: ZACK VASQUEZ Condition: Stable Julissa Coma Scale [place] Coma Scale Response Scores: Best Response = 15 Comatose Client = 8 or Less Totally Unresponsive = 3
--- NOTE | 2023-08-22 07:00 | CT ---
EXAM: CT BRAIN WITHOUT CONTRAST HISTORY: Weakness bilateral lower extremity TECHNIQUE: CT of the brain without intravenous contrast. FINDINGS: There is no acute hemorrhage midline shift or mass effect. No hydrocephalus or abnormal e xtra-axial fluid collection. Generalized involutional atrophy, moderate. Chronic microvascular gray ge of the white matter tracts, mild. No acute large vessel territorial infarct is seen. Atheroscler otic vascular calcifications are present. The bony cranium appears normal. The visualized paranasal sinuses are clear. Soft tissues without significant abnormality. IMPRESSION: 1. No acute intracranial abnormality. Chronic changes as described. Discussed with ordering physician 0654 hours Central time 08/14/[address] scans are performed using dose optimization techniques as appropriate to the performed exam an d include at least one of the following: Automated exposure control, adjustment of the mA and/or kV according t o size, and the use of iterative reconstruction technique.
[2023-08-22 07:01] LABS: BORDETELLA PARAPERTUSSIS (PCR) NOT DETECTED (NOT DETECT); BORDETELLA PERTUSSIS (PCR) NOT DETECTED (NOT DETECT); CHLAMYDIA PNEUMONIAE (PCR) NOT DETECTED (NOT DETECT); CORONAVIRUS 229E (PCR) NOT DETECTED (NOT DETECT); CORONAVIRUS HKU1 (PCR) NOT DETECTED (NOT DETECT); CORONAVIRUS NL63 (PCR) NOT DETECTED (NOT DETECT); CORONAVIRUS OC43 (PCR) NOT DETECTED (NOT DETECT); HUMAN METAPNEUMOVIRUS (PCR) NOT DETECTED (NOT DETECT); HUMAN RHINOVIRUS/ENTEROV (PCR) NOT DETECTED (NOT DETECT); INFLUENZA B (PCR) NOT DETECTED (NOT DETECT); MYCOPLASMA PNEUMONIAE (PCR) NOT DETECTED (NOT DETECT); PARAINFLUENZA VIRUS 1 (PCR) NOT DETECTED (NOT DETECT); PARAINFLUENZA VIRUS 2 (PCR) NOT DETECTED (NOT DETECT); PARAINFLUENZA VIRUS 3 (PCR) NOT DETECTED (NOT DETECT); PARAINFLUENZA VIRUS 4 (PCR) NOT DETECTED (NOT DETECT); RESPIRATORY SYNCYTIAL V (PCR) NOT DETECTED (NOT DETECT); SARS_COV_2 (PCR) NOT DETECTED (NOT DETECT)
--- NOTE | 2023-08-22 07:03 | DI ---
EXAM: CHEST TWO VIEWS HISTORY: Cough FINDINGS: Small hiatus hernia shadow. Normal cardiomediastinal contours otherwise. Normal pulmonar y vasculature. Lungs are clear. Atherosclerotic calcification of the aorta. No significant abnorma lity of the bony thorax. IMPRESSION: No acute cardiopulmonary disease
[2023-08-22 07:20] LABS: BASOPHILS % (AUTO) 0.6 % (0.0-3.0); EOSINOPHILS % (AUTO) 0.3 % (0.0-7.0); HEMATOCRIT 46.4 % (37.0-47.0); HEMOGLOBIN 14.7 g/dl (12.0-16.0); IMMATURE GRANULOCYTE % (AUTO) 0.6 % (0.0-5.0); LYMPHOCYTES # (AUTO) 3.1 K/uL (0.60-3.4); MEAN CORPUSCULAR HEMOGLOBIN 28.8 pg (27.0-31.0); MEAN CORPUSCULAR HGB CONC 31.7 (31.8-35.4); MONOCYTES # (AUTO) 0.4 K/uL (0.4-2.0); MONOCYTES % (AUTO) 5.8 (0-10); NEUTROPHILS % (AUTO) 45.7 % (42.2-75.2); PLATELET COUNT 173 10^3/uL (140-440); RDW COEFFICIENT OF VARIATION 14.1 % (11.6-14.8); WHITE BLOOD COUNT 6.51 K/ul (4.6-10.2)
[2023-08-22 07:28] LABS: PARTIAL THROMBOPLASTIN TIME 23.4 SEC (23.9-40.0); PROTHROMBIN TIME 9.9 SEC (9.3-11.0)
--- NOTE | 2023-08-22 07:35 | ED.PDOC ---
General ED Provider: Dr. ZACK VASQUEZ MD Chief Complaint: Weakness Stated Complaint: Patient with a history of restless leg syndrome, anemia and hypertension states she is frequently up to use the bathroom throughout the night and at 1130 last night she noticed that her gait was uncoordinated and unsteady. Patient also complains associated with upper lip numbness. Denies headache, slurred speech, blurred vision, focal weakness in extremities. Time Seen by Provider: 08/22/23 07:00 Mode of Arrival: Wheelchair Information Source: Patient Exam Limitations: Clinical condition Primary Care Provider: ALEAH MCKINNEY MD Nursing and Triage Documentation Reviewed and Agree: Yes What is Opioid Naive?: *Opioid Naive implies the patient is not already taking opioids or not chronically receiving opioids on a daily basis. *PRN dosing is not "usually" associated with tolerance. *Patients are at higher risk of over-sedation and aspiration. What is Opioid Tolerant?: *Opioid Tolerance implies less than the expected response to an opioid. *Acquired tolerance is defined by the patient taking 60mg of oral morphine daily (or equianalgesic dose of another opioid) for 1 week or more. *Often associated with chronic pain. *May take more than usual dose to achieve desired pain control. Review of Systems Review Of Systems Constitutional: Reports No symptoms Eyes: Reports No symptoms Ears, Nose, Mouth, Throat: Reports No symptoms Respiratory: Reports No symptoms Cardiac: Reports No symptoms GI: Reports No symptoms : Reports No symptoms Musculoskeletal: Reports No symptoms Skin: Reports No symptoms Neurological: Reports Tingling (Left facial numbness and unsteady gait. Denies headache, blurred vision, slurred speech) Endocrine: Reports No symptoms Hematologic/Lymphatic: Reports No symptoms All Other Systems: Reviewed and Negative [facility] Medical History (Updated 08/22/23 @ 09:59 by ZACK VASQUEZ MD) History of COVID-19 01/2021 with Hospitalization Z86.16 - Personal history of COVID-19 (ICD-10) Detached retina 02/2020 H33.20 - Serous retinal detachment, unspecified eye (ICD-10) Sacral fracture S32.10XA - Unspecified fracture of sacrum, initial encounter for closed fracture (ICD-10) Confusion r/t covid R41.0 - Disorientation, unspecified (ICD-10) Chest pain R07.9 - Chest pain, unspecified (ICD-10) Weakness R53.1 - Weakness (ICD-10) Leg edema R60.0 - Localized edema (ICD-10) PAC (premature atrial contraction) I49.1 - Atrial premature depolarization (ICD-10) Fever R50.9 - Fever, unspecified (ICD-10) Detached retina, left [place] 02/2020 H33.22 - Serous retinal detachment, left eye (ICD-10) Family History Mother Cancer Other No known health problems Social History Smoking and tobacco status: Former smoker Alcohol intake: never Substance use type: does not use Special gabby needs: No Agree to transfusion: Yes Adopted: No Caregiver/support person: No Foster care: No Household members: children Housing: house Marital status: U UNKNOWN Lives independently: Yes Number of children: 3 service: No FCI: No History of recent travel: No Do you think of yourself as: straight/heterosexual Current gender identity: female Seatbelt use: always Drives intoxicated or rides with intoxicated meals on wheels driver: No Water heater temperature set < 120 degrees: Yes Working smoke detector in home: Yes Fire extinguisher in home: Yes Carbon monoxide detector in home: Yes Surgical History History of repair of hiatal hernia Z98.890 - Other specified postprocedural states (ICD-10) Z87.19 - Personal history of other diseases of the digestive system (ICD-10) History of bladder suspension procedure Z98.890 - Other specified postprocedural states (ICD-10) Z87.448 - Personal history of other diseases of urinary system (ICD-10) History of esophageal surgery Z98.890 - Other specified postprocedural states (ICD-10) Status post hysterectomy Z90.710 - Acquired absence of both cervix and uterus (ICD-10) History of section Z98.891 - History of uterine scar from previous surgery (ICD-10) Status post appendectomy Z90.49 - Acquired absence of other specified parts of digestive tract (ICD- 10) Female Reproductive History Menstrual Hx Hysterectomy: No Hx Tubal Ligation: No Physical Exam Physical Exam Appearance: Reports Well-appearing Ill-appearing: None Eyes: Reports EOMI and Conjunctiva clear ENT: Reports Ears normal, Nose normal and Oropharynx normal Neck: Supple Respiratory: Reports Airway patent and Breath sounds clear Cardiovascular: Reports RRR and Pulses normal GI/: Reports Soft and Nontender Musculoskeletal: Reports Normal strength, ROM intact, No edema, No calf tenderness and Other Skin: Reports Warm, Dry and Normal color Neurological: Reports Sensation intact, Motor intact, Reflexes intact, Cranial nerves intact, Alert and Oriented (Cerebellar functions finger-nose and [id number] or within normal limits with a slight intentional tremor. There is no facial hypoesthesia.) NIH Stroke Scale 1a. Level of Consciousness: 0=Alert and keenly responsive 1b. Level of Consciousness Questions: 0=Answers correctly to two questions 2. Best Gaze: 0=Normal 3. Visual: 0=No visual loss 4. Facial Palsy: 0=Normal 5a. Motor Left Arm: 0=No drift,arm holds 90 degrees for 10 sec., leg 30 degrees for 5 sec. 5b. Motor Right Arm: 0=No drift,arm holds 90 degrees for 10 sec., leg 30 degrees for 5 sec. 6b. Motor Right Le=No drift,arm holds 90 degrees for 10 sec., leg 30 degrees for 5 sec. 7. Limb Ataxia: 2=Present in two or more limbs 8. Sensory: 0=Normal 9. Best Language: 0=No aphasia 10. Dysarthria: 0=Normal 11. Extincion and Inattention: 0=Normal Stroke Scale Total: 2 Physician Notification Case Discussed Physician Notified: Discussed with Dr. Kayla Mckinney Time of Notification: 08:50 Comments: After discussion of results of the CT scan findings, laboratory data recommendations for admission to the hospitalist service Physician Notified: Discussed with hospitalist Demar Moise Time of Notification: 08:53 Comments: After discussion of laboratory data and CT scan findings recommendations for observation Critical Care Note Critical Care Note Total Critical Care Time (mins): 15 Course Course 08/22/23 06:55 08/22/23 06:55 Orders, Labs, Meds: Lab Review 08/22/23 08/22/23 08/22/23 06:53 06:55 08:00 WBC 6.51 RBC 5.10 Hgb 14.7 Hct 46.4 MCV 91.0 MCH 28.8 MCHC 31.7 L RDW Coeff of [place] 14.1 Plt Count 173 Immature Gran % (Auto) 0.6 Neut % (Auto) 45.7 Lymph % (Auto) 47.0 [place] % (Auto) 5.8 Eos % (Auto) 0.3 Baso % (Auto) 0.6 Neut # (Auto) 3.0 Lymph # (Auto) 3.1 [place] # (Auto) 0.4 Eos # (Auto) 0.0 Baso # (Auto) 0.0 Immature Gran # (Auto) 0.0 PT 9.9 INR 0.95 APTT 23.4 L Sodium 143.9 Potassium 4.50 Chloride 106.5 Carbon Dioxide 28.8 Anion Gap 13.10 BUN 13.4 Creatinine 0.74 Estimated GFR (MDRD) 74.00 BUN/Creatinine Ratio 18.10 Glucose 107.4 H Lactic Acid 1.17 Calcium 9.75 Total Bilirubin 0.72 AST 26.0 ALT 19.8 Alkaline Phosphatase 79.0 Troponin I < 0.012 Total Protein 7.78 Albumin 4.58 Globulin 3.20 Albumin/Globulin Ratio 1.43 D-Dimer 579.08 H Urine Color Yellow Urine Clarity Clear Urine pH 7.0 Ur Specific [place] 1.015 Urine Protein Negative Urine Glucose (UA) Negative Urine Ketones Negative Urine Blood Trace-intact H Urine Nitrite Negative Urine Bilirubin Negative Urine Urobilinogen 0.2 Ur Leukocyte Esterase 1+ H Urine Microscopic RBC 0-2 Urine Microscopic WBC 2-5 Ur Squamous Epith Cells Not present Adenovirus (PCR) Not detected B. pertussis DNA (PCR) Not detected B.parapertussis DNA PCR Not detected C. pneumoniae DNA (PCR) Not detected Coronavirus OC43 (PCR) Not detected Coronavirus HKU1 (PCR) Not detected Coronavirus 229E (PCR) Not detected Coronavirus NL63 (PCR) Not detected Human Metapneumovir PCR Not detected Influenza Type A (PCR) Not detected Influenza B (RT-PCR) Not detected M. pneumoniae (PCR) Not detected Parainfluenza 1 (PCR) Not detected Parainfluenza 2 (PCR) Not detected Parainfluenza 3 (PCR) Not detected Parainfluenza 4 (PCR) Not detected RSV (PCR) Not detected Entero/Rhino (PCR) Not detected SARS-CoV-2 (PCR) Not detected Orders Category Date Time Status EKG-(ED ONLY) Stat CARDIO 04/28/24 06:28 Completed NPO REMINDER: IMAGING ONCE CARE 08/22/23 06:58 Completed ED ACCUCHECK ASSESSMENT .ONCE EMERGENCY 08/22/23 06:28 Active ED APPLY O2 .ONCE EMERGENCY 08/22/23 06:28 Active ED LIDAR SCIENTIST APPLIED .ONCE EMERGENCY 08/22/23 06:28 Active ED IV/MEDIPORT/POWERPORT .ONCE EMERGENCY 08/22/23 06:28 Active CBC W/ AUTO DIFF Stat LAB 08/22/23 06:55 Completed COMPREHENSIVE METABOLIC PANEL Stat LAB 08/22/23 06:55 Completed D-DIMER Stat LAB 08/22/23 06:55 Completed LACTIC ACID Stat LAB 08/22/23 06:55 Completed PARTIAL THROMBOPLASTIN TIME Stat LAB 08/22/23 06:55 Completed PT WITH INR Stat LAB 08/22/23 06:55 Completed RESPIRATORY PANEL 2.1 (PCR) Stat LAB 08/22/23 06:53 Completed TROPONIN I Stat LAB 08/22/23 06:55 Completed UA [URINALYSIS C & S IF INDICATED] Stat LAB 08/22/23 08:00 Completed 0.9 % Sodium Chloride [Saline Flush] Meds 08/22/23 06:28 Active 1 syr IVF PRN PRN Aspirin [Aspirin EC] Meds 08/22/23 07:50 Discontinued 325 mg PO ONCE STA CHEST, 2 VIEWS PA & LAT Stat RADS 08/22/23 06:[address] HEAD W/O CONTRAST Stat RADS 08/22/23 06:28 Completed CTA ANGIO HEAD Stat RADS 08/22/23 06:58 Completed CTA ANGIO NECK Stat RADS 08/22/23 06:58 Completed Medications Generic Name Dose Route Start Last Admin Trade Name Freq PRN Reason Stop Dose Admin Sodium Chloride 1 syr 08/22/23 06:28 08/22/23 08:10 0.9% Sodium Chloride 10 Ml Disp.Syrin IVF 1 syr PRN PRN Administration To flush IV Discontinued Medications Generic Name Dose Route Start Last Admin Trade Name Freq PRN Reason Stop Dose Admin Aspirin 325 mg 08/22/23 07:50 08/22/23 08:10 Aspirin 325 Mg Tablet.Dr PO 08/22/23 07:51 325 mg ONCE STA Administration Vital Signs: Temp Pulse Resp BP Pulse Ox 08/22/23 07:16 61 16 159/61 H 88 L 08/22/23 06:26 97.9 F 90 16 160/69 H 98 Physician Progress Note: History obtained from the patient as well as her daughter states last night 1130 walked into the bathroom her legs felt weak she is able to get out of bed and her gait markedly unsteady. Denies focal weakness sitting or supine position denies headache, blurred vision slurred speech. Patient does complain of numbness above her upper lip. Assisting with ambulation at bedside the gait is markedly antalgic with patient requires assistance with [address] scan interpretation by radiologist shows no acute intracranial abnormality there is no hemorrhage, infarction, mass effect. Portable chest x-ray interpretation by radiologist shows no acute cardiopulmonary process. Patient then was administered aspirin 325 mg orally and clonidine 0.1 mg for blood pressure 180/80. EKG interpretation by myself is consistent with this rhythm rate of [address] changes noted anteroseptally. No change from previous EKG May 21, 2021 Patient meets no criteria for thrombolytics since onset of symptoms 7-1/2 hours prior to arrival CTA angio head with intravenous contrast interpretation by radiologist shows no intracranial stenosis signs of acute vascular occlusion. There is no intracranial aneurysm or vascular malformation. CT angio neck with intravenous contrast interpretation by the radiologist shows there is a small amount of calcified plaque seen within the proximal to mid internal carotid arteries bilaterally without causing stenosis. Vertebral arteries appear patent subclavian arteries appear patent. Differential diagnosis: 1) acute ischemic stroke 2) lower extremity weakness Discussed with Dr. Kayla Mckinney at 0 [phone] admission to hospital service Discussed with hospitalist angelo at 0853 for observation. [] Discharge Plan Discharge Patient Disposition: PLACED OBSERVATION Discharge Problem: Stroke-like symptoms, Bilateral leg weakness Prescriptions: No Action ropinirole 0.25 mg tablet See Rx Instructions .ROUTE .COMPLEX Qty: 60 3RF Dose Instruction: TAKE 1-2 TABLETS AT BEDTIME Rx Instructions: TAKE 1-2 TABLETS AT BEDTIME tramadol 50 mg tablet 50 mg PO TID PRN (Reason: pain) Qty: 90 3RF atorvastatin 20 mg tablet See Rx Instructions .ROUTE .COMPLEX Qty: 30 3RF Dose Instruction: TAKE ONE TABLET DAILY GENERIC FOR LIPITOR Rx Instructions: TAKE ONE TABLET DAILY GENERIC FOR LIPITOR pantoprazole 40 mg tablet,delayed release (DR/EC) See Rx Instructions .ROUTE .COMPLEX Qty: 90 1RF Dose Instruction: TAKE ONE TABLET DAILY Rx Instructions: TAKE ONE TABLET DAILY diltiazem HCl 60 mg tablet See Rx Instructions .ROUTE .COMPLEX Qty: 60 2RF Dose Instruction: TAKE ONE TABLET EVERY TWELVE HOURS Rx Instructions: TAKE ONE TABLET EVERY TWELVE HOURS escitalopram oxalate 5 mg tablet See Rx Instructions .ROUTE .COMPLEX Qty: 30 2RF Dose Instruction: TAKE ONE TABLET DAILY Rx Instructions: TAKE ONE TABLET DAILY ferrous sulfate [FeroSul] 325 mg (65 mg iron) tablet See Rx Instructions .ROUTE .COMPLEX Qty: 60 2RF Dose Instruction: TAKE ONE TABLET TWICE DAILY Rx Instructions: TAKE ONE TABLET TWICE DAILY Unisom (doxylamine) 25 mg Tablet 25 mg PO BEDTIME benzonatate 200 mg capsule 200 mg PO BID-TID PRN (Reason: cough) Qty: 30 0RF Did you review [place] [facility] for ALL controlled substances?: Not Applicable ED Provider: ZACK VASQUEZ Condition: Stable [place] Coma Scale [place] Coma Scale Response Scores: Best Response = 15 Comatose Client = 8 or Less Totally Unresponsive = 3
[2023-08-22 07:51] LABS: ADENOVIRUS (PCR) NOT DETECTED (NOT DETECT)
[2023-08-22] MEDS: ASPIRIN EC PO STA (08:10)
[2023-08-22 08:17] LABS: ALANINE AMINOTRANSFERASE 19.8 U/L (0-35); ALBUMIN 4.58 g/dL (3.5-5.0); BILIRUBIN,TOTAL 0.72 mg/dL (0.2-1.3); BLOOD UREA NITROGEN 13.4 mg/dL (7-17); CALCIUM 9.75 mg/dL (8.4-10.2); CARBON DIOXIDE 28.8 mmol/L (22-30.0); CHLORIDE 106.5 mmol/L (98-107); CREATININE 0.74 mg/dL (0.60-1.30); GLUCOSE 107.4 mg/dL (74-106); SODIUM 143.9 mmol/L (134.5-145); TOTAL PROTEIN 7.78 g/dL (6.3-8.2)
[2023-08-22 08:30] LABS: TROPONIN I < 0.012 ng/ml (0.0000-0.120)
[2023-08-22 08:35] LABS: BILIRUBIN,URINE Negative (NEGATIVE); CLARITY,URINE Clear (CLEAR); COLOR,URINE Yellow (YELLOW); GLUCOSE, URINE (UA) Negative (NEGATIVE); KETONES,URINE Negative (NEGATIVE); LEUKOCYTE ESTERASE ,URINE 1+ (NEGATIVE); NITRITE,URINE Negative (NEGATIVE); PROTEIN,URINE Negative (NEGATIVE); URINE, BLOOD Trace-intact (NEGATIVE); UROBILINOGEN,URINE 0.2 (0.2)
[2023-08-22 08:38] LABS: SQUAMOUS EPITHELIAL CELL,UR NOT PRESENT (0-5)
[2023-08-22 08:39] LABS: URINE RBC, MICROSCOPIC 0-2 (0-2)
--- NOTE | 2023-08-22 09:36 | CT ---
EXAM: CT ANGIOGRAM OF THE NECK WITH AND WITHOUT CONTRAST HISTORY: stroke like symptoms TECHNIQUE: Imaging of the neck was performed before and after the intravenous administration of cont rast. 1 mm thin axial images and coronal and sagittal reconstructions and rotated 3-D reconstruction s were obtained. FINDINGS: The left common carotid artery appears to be adequately patent. The proximal, mid and dis navin left internal carotid artery appear patent. There is a small amount of calcified plaque seen wit hin the proximal to mid left internal carotid artery not causing stenosis. The right common carotid artery appears patent. There is a small amount of calcified plaque seen wit hin the proximal right internal carotid artery not causing stenosis. The proximal, mid and distal ri ght internal carotid artery appear patent. The right vertebral artery is slightly dominant. The proximal, mid, and distal vertebral arteries ap pear to be patent. The left subclavian artery appears in the right subclavian artery appears patent. IMPRESSION: There is a small amount of calcified plaque seen within the proximal to mid internal car otid arteries bilaterally as described above not causing stenosis. The vertebral arteries appear patent. The subclavian arteries appear patent. All CT scans are performed using dose optimization techniques as appropriate to the performed exam an d include at least one of the following: Automated exposure control, adjustment of the mA and/or kV according t o size, and the use of iterative reconstruction technique.
--- NOTE | 2023-08-22 09:48 | CT ---
EXAM: CT ANGIOGRAM OF THE HEAD WITH AND WITHOUT CONTRAST HISTORY: Stroke-like symptoms TECHNIQUE: Helical imaging of the head was performed before and after the intravenous administration of contrast. 1 mm thin postcontrast axial images and coronal and sagittal reconstructions and rotat ed 3-D reconstructions were obtained. Comparison CT scan of the head without contrast performed on the same day. FINDINGS: There is calcified plaque seen within the cavernous carotid artery not causing significant stenosis. The supraclinoid ICA appear patent. The M1 segments of the middle cerebral arteries appe ar patent. There is a normal appearance of the distal branches of the middle cerebral arteries. The A1 segments appear patent. The A2 segments and distal branches of the anterior cerebral arteries ar e patent. The distal vertebral arteries appear patent. The basilar artery appears patent. There is a normal a ppearance of the tip of the basilar artery. The posterior cerebral arteries appear patent. The gardner-white interface appears normal. No acute hemorrhages are seen. There is no mass effect. T here are no extraaxial collections. The paranasal sinuses and mastoid air cells are clear. IMPRESSION: There is no intracranial stenosis or signs of acute vascular occlusion. There is no intracranial aneurysm or vascular malformation. No acute intracranial abnormalities are seen. All CT scans are performed using dose optimization techniques as appropriate to the performed exam an d include at least one of the following: Automated exposure control, adjustment of the mA and/or kV according t o size, and the use of iterative reconstruction technique.
[2023-08-22 10:20] LABS: CHOLESTEROL 173.4 mg/dL (0-200); HDL CHOLESTEROL 37.9 mg/dL (35-80); TRIGLYCERIDES 236.1 mg/dL (0-150)
--- NOTE | 2023-08-22 10:45 | PCM ---
Date of Service Date Seen by Provider: 08/22/23 Time Seen by Provider: 10:35 Admit Day/Time Admission Date: 08/22/23 Reason for Admission Chief Complaint: CVA; ACUTE WEAKNESS Hospital Provider Hospital Provider: REN BRUCE, [facility] [place] Primary Care Physician Primary Care Physician: ALEAH MCKINNEY MD History of Present Illness History of Present Illness: 87 yo female with pmh of PACs/PVCs, chronic anemia, hypertension, presented to the ER with weakness. Patient got up to use the restroom around 2330 last night and had difficulty walking. States that the right leg feels more weak than the left. No other focal deficits reported. Denies any blurry vision, chest pain, sob, upper extremity weakness, slurred speech. Patient denies any previous history of CVA in past. No acute findings on head CT or CTA head and neck. She was given 325 mg aspirin and clonidine for hypertension. Patient was admitted to med/surg observation. Case Discussed With Case Discussed With: Patient's case was discussed with the ER Physicians, Dr. Merchant. [facility] Medical History History of COVID-19 01/2021 with Hospitalization Z86.16 - Personal history of COVID-19 (ICD-10) Detached retina 02/2020 H33.20 - Serous retinal detachment, unspecified eye (ICD-10) Sacral fracture S32.10XA - Unspecified fracture of sacrum, initial encounter for closed fracture (ICD-10) Confusion r/t covid R41.0 - Disorientation, unspecified (ICD-10) Chest pain R07.9 - Chest pain, unspecified (ICD-10) Weakness R53.1 - Weakness (ICD-10) Leg edema R60.0 - Localized edema (ICD-10) PAC (premature atrial contraction) I49.1 - Atrial premature depolarization (ICD-10) Fever R50.9 - Fever, unspecified (ICD-10) Detached retina, 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/2020 H33.22 - Serous retinal detachment, left eye (ICD-10) Surgical History History of repair of hiatal hernia Z98.890 - Other specified postprocedural states (ICD-10) Z87.19 - Personal history of other diseases of the digestive system (ICD-10) History of bladder suspension procedure Z98.890 - Other specified postprocedural states (ICD-10) Z87.448 - Personal history of other diseases of urinary system (ICD-10) History of esophageal surgery Z98.890 - Other specified postprocedural states (ICD-10) Status post hysterectomy Z90.710 - Acquired absence of both cervix and uterus (ICD-10) History of section Z98.891 - History of uterine scar from previous surgery (ICD-10) Status post appendectomy Z90.49 - Acquired absence of other specified parts of digestive tract (ICD- 10) Family History Mother Cancer Other No known health problems Social History Smoking and tobacco status: Former smoker Alcohol intake: never Substance use type: does not use Special gabby needs: No Agree to transfusion: Yes Adopted: No Caregiver/support person: No Foster care: No Household members: children Housing: house Marital status: U UNKNOWN Lives independently: Yes Number of children: 3 service: No FPC: No History of recent travel: No Do you think of yourself as: straight/heterosexual Current gender identity: female Seatbelt use: always Drives intoxicated or rides with intoxicated cab driver: No Water heater temperature set < 120 degrees: Yes Working smoke detector in home: Yes Fire extinguisher in home: Yes Carbon monoxide detector in home: Yes Allergies Allergies Allergy/AdvReac Type Severity Reaction Status Date / Time codeine Allergy Severe Anaphylaxis Verified 08/04/23 10:13 flu shots AdvReac Mild chills Uncoded 08/04/23 09:38 Current Medications Home Medications doxylamine succinate 25 mg tablet (Unisom (doxylamine)) 25 mg PO BEDTIME 05/21/21 [History Confirmed 08/22/23 Last Taken 08/21/23] ropinirole 0.25 mg tablet See Rx Instructions .Route .COMPLEX #60 tabs 04/01/23 [Rx Confirmed 08/22/23 Last Taken 08/21/23] tramadol 50 mg tablet 50 mg PO TID PRN pain #90 tabs 04/01/23 [Rx Confirmed 08/22/23 Last Taken Unknown] atorvastatin 20 mg tablet See Rx Instructions .Route .COMPLEX #30 tabs 05/24/23 [Rx Confirmed 08/22/23 Last Taken 08/21/23] diltiazem HCl 60 mg tablet See Rx Instructions .Route .COMPLEX #60 tabs 06/07/23 [Rx Confirmed 08/22/23 Last Taken 08/21/23] pantoprazole 40 mg tablet,delayed release See Rx Instructions .Route .COMPLEX #90 tabs 06/07/23 [Rx Confirmed 08/22/23 Last Taken 08/21/23] escitalopram oxalate 5 mg tablet See Rx Instructions .Route .COMPLEX #30 tabs 07/05/23 [Rx Confirmed 08/22/23 Last Taken 08/21/23] ferrous sulfate 325 mg (65 mg iron) tablet (FeroSul) See Rx Instructions .Route .COMPLEX #60 tabs 08/02/23 [Rx Confirmed 08/22/23 Last Taken 08/21/23] benzonatate 200 mg capsule 200 mg PO BID-TID PRN cough #30 caps 08/04/23 [Rx Confirmed 08/22/23 Last Taken Unknown] Home Acetaminophen (Acetaminophen 325 Mg Tablet) 650 mg PO Q4H PRN PRN Reason: Mild Pain Atorvastatin Calcium (Atorvastatin Calcium 20 Mg Tablet) 0 mg PO .COMPLEX RAMBO Benzonatate (Benzonatate 100 Mg Capsule) 200 mg PO BID-TID PRN PRN Reason: Cough Diltiazem HCl (Diltiazem Hcl 60 Mg Tablet) 0 mg PO .COMPLEX RAMBO Escitalopram Oxalate (Escitalopram Oxalate 10 Mg Tablet) 5 mg PO DAILY RAMBO Ferrous Sulfate (Ferrous Sulfate 324 Mg Tablet.) 324 mg PO BID RAMBO Hydralazine HCl (Hydralazine Hcl 20 Mg/Ml Sdv) 10 mg IVP Q6H PRN PRN Reason: Hypertension Non-Formulary Medication (Doxylamine Succinate [Unisom (Doxylamine)]) 25 mg PO BEDTIME RAMBO Pantoprazole Sodium (Pantoprazole Sodium 40 Mg Tablet.) 0 mg PO .COMPLEX RAMBO Ropinirole HCl (Ropinirole Hcl 0.25 Mg Tablet) 0 mg PO .COMPLEX RAMBO Sodium Chloride (0.9% Sodium Chloride 10 Ml Disp.Syrin) 1 syr IVF PRN PRN PRN Reason: To flush IV Last Admin: 08/22/23 08:10 Dose: 1 syr Tramadol HCl (Tramadol Hcl 50 Mg Tablet) 50 mg PO TID PRN PRN Reason: Pain Discontinued Medications Aspirin (Aspirin 325 Mg Tablet.) 325 mg PO ONCE STA Stop: 08/22/23 07:51 Last Admin: 08/22/23 08:10 Dose: 325 mg Opioid Naive vs. Tolerant Does Patient Take Opioids?: No Is Patient Opioid Naive?: Yes What is Opioid Naive?: *Opioid Naive implies the patient is not already taking opioids or not chronically receiving opioids on a daily basis. *PRN dosing is not "usually" associated with tolerance. *Patients are at higher risk of over-sedation and aspiration. Is Patient Opioid Tolerant?: No What is Opioid Tolerant?: *Opioid Tolerance implies less than the expected response to an opioid. *Acquired tolerance is defined by the patient taking 60mg of oral morphine daily (or equianalgesic dose of another opioid) for 1 week or more. *Often associated with chronic pain. *May take more than usual dose to achieve desired pain control. Review of Systems Constitutional: Reports Weakness (R>L) Head: Reports Normocephalic and Atraumatic Eyes: Reports No symptoms Ears: Reports No symptoms Nose: Reports No symptoms Mouth: Reports No symptoms Throat: Reports No symptoms Cardiovascular: Reports No symptoms Respiratory: Reports No symptoms Gastrointestinal: Reports No symptoms Genitourinary: Reports No Symptoms Musculoskeletal: Reports No symptoms Endocrine: Reports No symptoms Hematology: Reports No symptoms Immunology: Reports No symptoms Neurological: Reports No symptoms Psychiatric: Reports No symptoms Physical examination Most Recent Vital Signs: Most Recent Vital Signs Temperature 97.9 F 08/22/23 06:26 Temperature Source Infrared 08/22/23 06:26 Pulse Rate 61 08/22/23 07:16 Respiratory Rate 16 08/22/23 07:16 Blood Pressure 159/61 H 08/22/23 07:16 O2 Sat by Pulse Oximetry 88 L 08/22/23 07:16 Height 5 ft 3 in 08/22/23 06:26 Weight 138 lb 3.677 oz 08/22/23 06:26 Telemetry Heart Rate 50 L 05/22/21 07:00 Telemetry SPO2 97 05/20/21 00:46 Appearance: Positive No Apparent Distress, Alert and Oriented x3 and Thin Skin: Positive Warm, Good Turgor and Good Color HEENT: Positive Normocephalic and PERRLA Neck: Positive Supple and Midline Trachea Chest/Lungs: Positive Symmetrical With Equal Breath Sounds, Clear to Auscultation Bilaterally and Good Air Movement all 4 Lung Perez Heart: Positive RRR, Pulses Normal, No S3 Auscultated and No S4 Auscultated GI/: Positive Soft, Nontender, Bowel Sounds Normal and No Distention Musculoskeletal: Positive Not Examined Extremities: Positive Intact Peripheral Pulses, Stable Joints Without Laxity and Good ROM in All Joints Neurological: Positive Sensation Intact, Motor intact, Alert, Oriented and Other (weakness R>L, NIH 1) Psychiatric: Positive Oriented x4, Appropriate Mood and Appropriate Affect Labs This Visit Labs This Visit: Labs This Visit 08/22/23 08/22/23 08/22/23 06:53 06:55 08:00 WBC 6.51 RBC 5.10 Hgb 14.7 Hct 46.4 MCV 91.0 MCH 28.8 MCHC 31.7 L RDW Coeff of [place] 14.1 Plt Count 173 Immature Gran % (Auto) 0.6 Neut % (Auto) 45.7 Lymph % (Auto) 47.0 [place] % (Auto) 5.8 Eos % (Auto) 0.3 Baso % (Auto) 0.6 Neut # (Auto) 3.0 Lymph # (Auto) 3.1 [place] # (Auto) 0.4 Eos # (Auto) 0.0 Baso # (Auto) 0.0 Immature Gran # (Auto) 0.0 PT 9.9 INR 0.95 APTT 23.4 L Sodium 143.9 Potassium 4.50 Chloride 106.5 Carbon Dioxide 28.8 Anion Gap 13.10 BUN 13.4 Creatinine 0.74 Estimated GFR (MDRD) 74.00 BUN/Creatinine Ratio 18.10 Glucose 107.4 H Hemoglobin A1c 5.75 Lactic Acid 1.17 Calcium 9.75 Total Bilirubin 0.72 AST 26.0 ALT 19.8 Alkaline Phosphatase 79.0 Troponin I < 0.012 Total Protein 7.78 Albumin 4.58 Globulin 3.20 Albumin/Globulin Ratio 1.43 D-Dimer 579.08 H Urine Color Yellow Urine Clarity Clear Urine pH 7.0 Ur Specific [place] 1.015 Urine Protein Negative Urine Glucose (UA) Negative Urine Ketones Negative Urine Blood Trace-intact H Urine Nitrite Negative Urine Bilirubin Negative Urine Urobilinogen 0.2 Ur Leukocyte Esterase 1+ H Urine Microscopic RBC 0-2 Urine Microscopic WBC 2-5 Ur Squamous Epith Cells Not present Adenovirus (PCR) Not detected B. pertussis DNA (PCR) Not detected B.parapertussis DNA PCR Not detected C. pneumoniae DNA (PCR) Not detected Coronavirus OC43 (PCR) Not detected Coronavirus HKU1 (PCR) Not detected Coronavirus 229E (PCR) Not detected Coronavirus NL63 (PCR) Not detected Human Metapneumovir PCR Not detected Influenza Type A (PCR) Not detected Influenza B (RT-PCR) Not detected M. pneumoniae (PCR) Not detected Parainfluenza 1 (PCR) Not detected Parainfluenza 2 (PCR) Not detected Parainfluenza 3 (PCR) Not detected Parainfluenza 4 (PCR) Not detected RSV (PCR) Not detected Entero/Rhino (PCR) Not detected SARS-CoV-2 (PCR) Not detected Imaging Imaging: EXAM: CT BRAIN WITHOUT CONTRAST FINDINGS: There is no acute hemorrhage midline shift or mass effect. No hydrocephalus or abnormal extra-axial fluid collection. Generalized involutional atrophy, moderate. Chronic microvascular change of the white matter tracts, mild. No acute large vessel territorial infarct is seen. Atherosclerotic vascular calcifications are present. The bony cranium appears normal. The visualized paranasal sinuses are clear. Soft tissues without significant abnormality. IMPRESSION: 1. No acute intracranial abnormality. Chronic changes as described. EXAM: CT ANGIOGRAM OF THE HEAD WITH AND WITHOUT CONTRAST FINDINGS: There is calcified plaque seen within the cavernous carotid artery not causing significant stenosis. The supraclinoid ICA appear patent. The M1 segments of the middle cerebral arteries appear patent. There is a normal appearance of the distal branches of the middle cerebral arteries. The A1 segments appear patent. The A2 segments and distal branches of the anterior cerebral arteries are patent. The distal vertebral arteries appear patent. The basilar artery appears patent. There is a normal appearance of the tip of the basilar artery. The posterior cerebral arteries appear patent. The gardner-white interface appears normal. No acute hemorrhages are seen. There is no mass effect. There are no extraaxial collections. The paranasal sinuses and mastoid air cells are clear. IMPRESSION: There is no intracranial stenosis or signs of acute vascular occlusion. There is no intracranial aneurysm or vascular malformation. No acute intracranial abnormalities are seen. EXAM: CT ANGIOGRAM OF THE NECK WITH AND WITHOUT CONTRAST FINDINGS: The left common carotid artery appears to be adequately patent. The proximal, mid and distal left internal carotid artery appear patent. There is a small amount of calcified plaque seen within the proximal to mid left internal carotid artery not causing stenosis. The right common carotid artery appears patent. There is a small amount of calcified plaque seen within the proximal right internal carotid artery not causing stenosis. The proximal, mid and distal right internal carotid artery appear patent. The right vertebral artery is slightly dominant. The proximal, mid, and distal vertebral arteries appear to be patent. The left subclavian artery appears in the right subclavian artery appears patent. IMPRESSION: There is a small amount of calcified plaque seen within the proximal to mid internal carotid arteries bilaterally as described above not causing stenosis. The vertebral arteries appear patent. The subclavian arteries appear patent. EKG Interpretation EKG Interpretation: SR rate [address] Salazar Review Statement Review Statement: I have independently reviewed and interpreted the labs/EKGs/imaging that were ordered by the ER provider. I have reviewed all outside records that are available currently in our EMR including imaging/notes/labs from previous visits. Plan Plan: 1. Stroke-like Symptoms - NIH 1, imaging negative, checking lipid panel, hemoglobin A1C, and TSH, allow permissive hypertension x 24 hours - hold antihypertensives unless SBP>220 or DBP>120, unable to start asa due to bleeding prev. 2. Sinus arrhythmia - chronic, hx of PAC/PVC, continue diltizem, unable to take anticoags due to anemia and prev. GI bleed 3. Weakness - PT/OT upon discharge 4. Hyperlipidemia - chronic, continue home medications 5. Anemia - chronic, continue iron, hgb within normal limits DVT Prophylaxis: CT monique Time Spent: Greater than 80 minutes spent with patient, 50% of the time spent with this patient was devoted to counseling and coordination of care. [facility] minutes spent discussing advance care planning Disposition: Admit to: Med/surg Observation Discussed Plan of Care with Dr. Cory Mckinney. Medications Medication Orders: Medications Ordered Category Date Time Status 0.9 % Sodium Chloride [Saline Flush] Meds 08/22/23 06:28 Active 1 syr IVF PRN PRN Acetaminophen [Tylenol] Meds 08/22/23 10:08 Active 650 mg PO Q4H PRN
[2023-08-22 10:51] LABS: THYROID STIMULATING HORMONE 2.98 uIU/L (0.465-4.68)
[2023-08-22 11:05] VITALS: BMI 24.1
[2023-08-22] MEDS ORDERED: HYDRALAZINE HCL IVP PRN (11:18)
[2023-08-22] MEDS ORDERED: ULTRAM PO PRN (11:19)
[2023-08-22] MEDS ORDERED: TESSALON PERLES PO PRN (11:19)
[2023-08-22] MEDS: CARDIZEM PO SCH (12:37)
[2023-08-22] MEDS: LIPITOR PO SCH (12:37)
[2023-08-22] MEDS: PROTONIX PO SCH (12:37)
[2023-08-22] MEDS: REQUIP PO SCH (20:18)
[2023-08-22] MEDS: NON-FORMULARY MEDICATION (Doxylamine Succinate [Unisom (Doxylamine)] 25 mg Tablet) PO SCH (20:18)
[2023-08-22] MEDS: FERROUS SULFATE PO SCH (20:19)
[2023-08-23 05:21] LABS: BASOPHILS % (AUTO) 0.5 % (0.0-3.0); EOSINOPHILS % (AUTO) 0.7 % (0.0-7.0); HEMATOCRIT 42.1 % (37.0-47.0); HEMOGLOBIN 13.1 g/dl (12.0-16.0); IMMATURE GRANULOCYTE % (AUTO) 0.4 % (0.0-5.0); LYMPHOCYTES % (AUTO) 34.6 (10.0-50.0); MEAN CORPUSCULAR HEMOGLOBIN 28.1 pg (27.0-31.0); MEAN CORPUSCULAR HGB CONC 31.1 (31.8-35.4); MEAN CORPUSCULAR VOLUME 90.1 fl (81.0-99.0); MONOCYTES # (AUTO) 0.4 K/uL (0.4-2.0); MONOCYTES % (AUTO) 6.7 (0-10); NEUTROPHILS # (AUTO) 3.2 K/ul (2.0-6.9); NEUTROPHILS % (AUTO) 57.1 % (42.2-75.2); PLATELET COUNT 141 10^3/uL (140-440); RDW COEFFICIENT OF VARIATION 14.3 % (11.6-14.8); RED BLOOD COUNT 4.67 10^6/ul (4.20-5.40); WHITE BLOOD COUNT 5.63 K/ul (4.6-10.2)
[2023-08-23 05:33] LABS: ALANINE AMINOTRANSFERASE 17.8 U/L (0-35); ALBUMIN 4.04 g/dL (3.5-5.0); ALKALINE PHOSPHATASE 65.2 U/L (53-141); ASPARTATE AMINO TRANSFERASE 22.1 U/L (14-36); BILIRUBIN,TOTAL 0.55 mg/dL (0.2-1.3); BLOOD UREA NITROGEN 14.8 mg/dL (7-17); CALCIUM 9.14 mg/dL (8.4-10.2); CARBON DIOXIDE 25.5 mmol/L (22-30.0); CREATININE 0.58 mg/dL (0.60-1.30); GLUCOSE 119.8 mg/dL (74-106); POTASSIUM 3.83 mmol/L (3.5-5.1); SODIUM 141.3 mmol/L (134.5-145); TOTAL PROTEIN 6.77 g/dL (6.3-8.2)
[2023-08-23] MEDS: LEXAPRO PO SCH (08:12)
[2023-08-23] MEDS: TYLENOL PO PRN (08:13)
[2023-08-23] MEDS: XANAX PO ONE (09:17)
--- NOTE | 2023-08-23 09:27 | DCSUM ---
Admission Date Admission Date: 08/22/23 Discharge Date Discharge Date: 08/23/23 Admission Diagnosis Admission Diagnosis: 1. Stroke-like Symptoms 2. Sinus arrhythmia - chronic 3. Weakness 4. Hyperlipidemia 5. Anemia Discharge Diagnosis Discharge Diagnosis: 1. Bilateral lower extremity weakness 2. Tick bite 3. Sinus arrhythmia, chronic 4. Hyperlipidemia 5. Anemia Hospital Provider Hospital Provider: DIANA LUCIA PA-C, [facility] [place] Primary Care Physician Primary Care Physician: ALEAH MCKINNEY MD Summary of History and Physical Summary of History and Physical: 87 yo female with pmh of PACs/PVCs, chronic anemia, hypertension, presented to the ER with weakness. Patient got up to use the restroom around 2330 last night and had difficulty walking. States that the right leg feels more weak than the left. No other focal deficits reported. Denies any blurry vision, chest pain, sob, upper extremity weakness, slurred speech. Patient denies any previous history of CVA in past. No acute findings on head CT or CTA head and neck. She was given 325 mg aspirin and clonidine for hypertension. Patient was admitted to med/surg observation. Hospital Course Subjective: Patient had a negative ct head and cta h/n. By morning of 08/22 she did not feel 100% but states her weakness is much improved. She has been ambulating. She is requesting to go home. MRI brain was negative for acute stroke but did show multiple chronic lacunar infarcts and microvascular changes. She was taken off of ASA back in 05/17 due to emesis and dark stools, occult stools were negative. Discussed with Dr. Ronda Mckinney, her pcp and her CT showing chronic lacunar infarcts. It was decided to remain off ASA at this time. Patient aware. Will discharge to home. She declines home health. Of note she mentioned a tick bite she obtained on Saturday 08/19, removed on Sunday 08/20. She has a small area of redness on stomach. No rashes or target lesions. Tick titers obtained, f/u outpatient. Pt agrees to plan of care. Discussed unlikely causing her weakness within 48 hours. Pt agrees to plan of care. Appearance: Pleasant, No Apparent Distress and Alert HEENT: MMM and Supple CVS: No Murmur Abdomen: Soft, Non-Tender and No Distention Respiratory: No Accessory Muscle Use Extremities: No Edema Additional Findings: Equal strength of lower ext and upper ext sudheer. Facial expressions symmetric. Speech clear. NIH 0. Vital Signs: Most Recent Vital Signs Temperature 97.3 F L 08/23/23 05:28 Temperature Source Temporal Artery Scan 08/23/23 05:28 Temperature Source Infrared 08/22/23 06:26 Pulse Rate 66 08/23/23 05:28 Respiratory Rate 17 08/23/23 08:00 Blood Pressure 152/72 H 08/23/23 05:30 Blood Pressure Mean 96 08/23/23 05:28 Blood Pressure Right Arm 178/99 08/22/23 10:30 Blood Pressure Location Right Arm 08/23/23 05:30 Blood Pressure Position Sitting 08/23/23 05:30 O2 Sat by Pulse Oximetry 96 08/23/23 05:28 Oxygen Delivery Method Room Air 08/23/23 09:00 Height 5 ft 3 in 08/22/23 10:30 Weight 136 lb 8 oz 08/22/23 10:30 Telemetry Type Remote Telemetry 08/23/23 07:00 Telemetry Monitoring Continues 08/23/23 07:00 Irregular Telemetry Rate (Approximate) 70-80 BPM 08/22/23 13:00 Telemetry Heart Rate 68 08/23/23 07:00 Telemetry SPO2 97 05/20/21 00:[address] Interval 0.16 08/23/23 07:00 EKG QRS Interval 0.08 08/23/23 07:00 Telemetry Strip Reading NSR 08/23/23 07:00 Imaging: EXAM: CT BRAIN WITHOUT CONTRAST FINDINGS: There is no acute hemorrhage midline shift or mass effect. No hydrocephalus or abnormal extra-axial fluid collection. Generalized involutional atrophy, moderate. Chronic microvascular change of the white matter tracts, mild. No acute large vessel territorial infarct is seen. Atherosclerotic vascular calcifications are present. The bony cranium appears normal. The visualized paranasal sinuses are clear. Soft tissues without significant abnormality. IMPRESSION: 1. No acute intracranial abnormality. Chronic changes as described. EXAM: CT ANGIOGRAM OF THE HEAD WITH AND WITHOUT CONTRAST FINDINGS: There is calcified plaque seen within the cavernous carotid artery not causing significant stenosis. The supraclinoid ICA appear patent. The M1 segments of the middle cerebral arteries appear patent. There is a normal appearance of the distal branches of the middle cerebral arteries. The A1 segments appear patent. The A2 segments and distal branches of the anterior cerebral arteries are patent. The distal vertebral arteries appear patent. The basilar artery appears patent. There is a normal appearance of the tip of the basilar artery. The posterior cerebral arteries appear patent. The gardner-white interface appears normal. No acute hemorrhages are seen. There is no mass effect. There are no extraaxial collections. The paranasal sinuses and mastoid air cells are clear. IMPRESSION: There is no intracranial stenosis or signs of acute vascular occlusion. There is no intracranial aneurysm or vascular malformation. No acute intracranial abnormalities are seen. EXAM: CT ANGIOGRAM OF THE NECK WITH AND WITHOUT CONTRAST FINDINGS: The left common carotid artery appears to be adequately patent. The proximal, mid and distal left internal carotid artery appear patent. There is a small amount of calcified plaque seen within the proximal to mid left internal carotid artery not causing stenosis. The right common carotid artery appears patent. There is a small amount of calcified plaque seen within the proximal right internal carotid artery not causing stenosis. The proximal, mid and distal right internal carotid artery appear patent. The right vertebral artery is slightly dominant. The proximal, mid, and distal vertebral arteries appear to be patent. The left subclavian artery appears in the right subclavian artery appears patent. IMPRESSION: There is a small amount of calcified plaque seen within the proximal to mid internal carotid arteries bilaterally as described above not causing stenosis. The vertebral arteries appear patent. The subclavian arteries appear patent. EXAMINATION: MAGNETIC RESONANCE IMAGING (MRI) OF THE BRAIN WITHOUT CONTRAST HISTORY: Stroke-like symptoms. TECHNIQUE: Multiplanar multi-weighted MRI of the brain and brainstem was performed without intravenous contrast using the general brain protocol. Contrast: None. COMPARISON: CTA head 08/22/2023 FINDINGS: Parenchyma: No acute infarct. No acute hemorrhage. No mass effect or midline shift. Craniocervical junction is normal. Chronic Change: Scattered and patchy foci of T2/FLAIR hyperintensity in the periventricular and subcortical white matter and clay, which are nonspecific, however likely represent moderate chronic microvascular ischemia. No remote microhemorrhages. Moderate generalized cortical volume loss. Multiple chronic lacunar infarcts in the centrum semiovale, helms radiata, left caudate head, and lentiform nuclei. Ventricles/Extra-axial Spaces: Ventricles are concordant with the degree of parenchymal volume loss. Normal basal cisterns. Sella/Skull Base: Pituitary and sella are normal on noncontrast exam. Paranasal Sinuses/Mastoids: Paranasal sinuses are clear. Small left and trace right mastoid effusions. Orbits: Bilateral artificial lens replacements. Vasculature: Normal flow voids in the carotid arteries and basilar artery. Calvarium/Scalp: Normal marrow. No soft tissue swelling. Limited Cervical Spine: No significant abnormality. IMPRESSION: No acute intracranial abnormality. Multiple chronic lacunar infarcts. Moderate chronic microvascular ischemic white matter changes. Moderate generalized cortical volume loss. Date of Exam: 4Room #: 114 Ordering Physician: DR. MCKINNEY(PRIMARY CARE); Danny LUCIA APRN (HOSPITALIST) Reason for Echo: CEREBRAL VASCULAR ACCIDENT SYMPTOMS, DIABETES MELLITUS TYPE 2, HYPERTENSION, DYSLIPIDEMIA M-Mode Normal Adult Results LV Dimensions Normal Adult Results AoV Opening excursions >1.6 >1.6 LVEDD-base- 3.5-5.8 4.5 Ao root dimensions 2.0-3.7 3.6 LVESD-base- 3.1-4.6 L. Atrium dimensions 1.9-3.8 5.3 Post. Wall thickness 0.8-1.1 1.2 IV septum (thickness) 0.7-1.2 1.5 Post. Wall excursion 0.72-1.3 NORMAL Septal motion NORMAL Systolic motion R. Ventricular cavity 1.5-2.0 NORMAL LVEF 60% 78% Paradoxical septal wall motion NORMAL 2-D : 2-D M Mode Echocardiogram was performed using apical four chamber and left parasternal long and short axis views. Mitral, tricuspid and aortic valves appear to be normal. Contractility of the left ventricle seems to be normal, so is the cavity size. ENLARGED LEFT ATRIAL CAVITY OTHERWISE NORMAL. Aortic root appears to be normal. There is no pericardial effusion. There is no thrombus noted in the left ventricle or left atrial cavity. M-MODE: MV: NORMAL AV: NORMAL TV: NORMAL PV: NORMAL CHAMBER SIZE: ENLARGED LEFT ATRIAL CAVITY. WALL MOTION: NORMAL PERICARDIUM: NORMAL INTERPRETATION: 1. LEFT VENTRICULAR HYPERTROPHY WITH ENLARGED LEFT ATRIAL CAVITY. 2. NORMAL VALVES. 3. NORMAL LEFT VENTRICULAR CONTRACTILITY / NORMAL LEFT VENTRICLE SIZE. 4. PRACTICALLY UNCHANGED FROM 2020 ECHOCARDIOGRAM. Lab Results Last 24 Hours: 08/23/23 08/22/23 05:09 06:55 WBC 5.63 RBC 4.67 Hgb 13.1 Hct 42.1 MCV 90.1 MCH 28.1 MCHC 31.1 L RDW Coeff of Eulalia 14.3 Plt Count 141 Immature Gran % (Auto) 0.4 Neut % (Auto) 57.1 Lymph % (Auto) 34.6 Navarro % (Auto) 6.7 Eos % (Auto) 0.7 Baso % (Auto) 0.5 Neut # (Auto) 3.2 Lymph # (Auto) 2.0 [place] # (Auto) 0.4 Eos # (Auto) 0.0 Baso # (Auto) 0.0 Immature Gran # (Auto) 0.0 Sodium 141.3 Potassium 3.83 Chloride 109.0 H Carbon Dioxide 25.5 Anion Gap 10.63 BUN 14.8 Creatinine 0.58 L Estimated GFR (MDRD) 98.00 BUN/Creatinine Ratio 25.51 Glucose 119.8 H Hemoglobin A1c 5.75 Calcium 9.14 Total Bilirubin 0.55 AST 22.1 ALT 17.8 Alkaline Phosphatase 65.2 Total Protein 6.77 Albumin 4.04 Globulin 2.73 Albumin/Globulin Ratio 1.47 Triglycerides 236.1 H Cholesterol 173.4 LDL Cholesterol, Calc 88 VLDL Cholesterol 47 H HDL Cholesterol 37.9 Cholesterol/HDL Ratio 4.6 TSH 2.980 Discharge Instructions Discharge Planning: Discharge Planning > [address] Endy Mckinney. Discharge Medications: Medications at Discharge (Home Meds & RX) doxylamine succinate 25 mg tablet (Unisom (doxylamine)) 25 mg PO BEDTIME 05/21/21 ropinirole 0.25 mg tablet See Rx Instructions .Route .COMPLEX #60 tabs 04/01/23 tramadol 50 mg tablet 50 mg PO TID PRN pain #90 tabs 04/01/23 atorvastatin 20 mg tablet See Rx Instructions .Route .COMPLEX #30 tabs 05/24/23 diltiazem HCl 60 mg tablet See Rx Instructions .Route .COMPLEX #60 tabs 06/07/23 pantoprazole 40 mg tablet,delayed release See Rx Instructions .Route .COMPLEX #90 tabs 06/07/23 escitalopram oxalate 5 mg tablet See Rx Instructions .Route .COMPLEX #30 tabs 07/05/23 ferrous sulfate 325 mg (65 mg iron) tablet (FeroSul) See Rx Instructions .Route .COMPLEX #60 tabs 08/02/23 benzonatate 200 mg capsule 200 mg PO BID-TID PRN cough #30 caps 08/04/23 Discharge Plan Discharge Discharge Orders: Discharge Patient (ONCE); Ordered 08/23/23 Ordered By: DIANA LUCIA Activity Restrictions/Additional Instructions: DISCHARGE TO HOME DX: LOWER EXTREMITY WEAKNESS, TICK BITE FOLLOW UP WITH PCP WITHIN 1 WEEK DIET: HEART HEALTHY ACTIVITY: TOLERATED, FALL PRECAUTIONS TICK BORNE ILLNESS TITERS PENDING Patient Disposition: HOME SELF-CARE Prescriptions: Continued ropinirole 0.25 mg tablet See Rx Instructions .ROUTE .COMPLEX Qty: 60 3RF Dose Instruction: TAKE 1-2 TABLETS AT BEDTIME Rx Instructions: TAKE 1-2 TABLETS AT BEDTIME tramadol 50 mg tablet 50 mg PO TID PRN (Reason: pain) Qty: 90 3RF atorvastatin 20 mg tablet See Rx Instructions .ROUTE .COMPLEX Qty: 30 3RF Dose Instruction: TAKE ONE TABLET DAILY GENERIC FOR LIPITOR Rx Instructions: TAKE ONE TABLET DAILY GENERIC FOR LIPITOR pantoprazole 40 mg tablet,delayed release (DR/EC) See Rx Instructions .ROUTE .COMPLEX Qty: 90 1RF Dose Instruction: TAKE ONE TABLET DAILY Rx Instructions: TAKE ONE TABLET DAILY diltiazem HCl 60 mg tablet See Rx Instructions .ROUTE .COMPLEX Qty: 60 2RF Dose Instruction: TAKE ONE TABLET EVERY TWELVE HOURS Rx Instructions: TAKE ONE TABLET EVERY TWELVE HOURS escitalopram oxalate 5 mg tablet See Rx Instructions .ROUTE .COMPLEX Qty: 30 2RF Dose Instruction: TAKE ONE TABLET DAILY Rx Instructions: TAKE ONE TABLET DAILY ferrous sulfate [FeroSul] 325 mg (65 mg iron) tablet See Rx Instructions .ROUTE .COMPLEX Qty: 60 2RF Dose Instruction: TAKE ONE TABLET TWICE DAILY Rx Instructions: TAKE ONE TABLET TWICE DAILY Unisom (doxylamine) 25 mg Tablet 25 mg PO BEDTIME benzonatate 200 mg capsule 200 mg PO BID-TID PRN (Reason: cough) Qty: 30 0RF Did you review [place] [employer] for ALL controlled substances?: Not Applicable Discussed opioids are addictive and Narcan is available by prescription or from pharmacy.: No Condition: Stable Referrals: ALEAH MCKINNEY MD [Primary Care Provider] - 08/30/23 8:40 am
[2023-08-23 10:12] VITALS: RESP 14
--- NOTE | 2023-08-23 11:00 | MRI ---
EXAMINATION: MAGNETIC RESONANCE IMAGING (MRI) OF THE BRAIN WITHOUT CONTRAST HISTORY: Stroke-like symptoms. TECHNIQUE: Multiplanar multi-weighted MRI of the brain and brainstem was performed without intravenou s contrast using the general brain protocol. Contrast: None. COMPARISON: CTA head 08/22/2023 FINDINGS: Parenchyma: No acute infarct. No acute hemorrhage. No mass effect or midline shift. Craniocervical junction is normal. Chronic Change: Scattered and patchy foci of T2/FLAIR hyperintensity in the periventricular and subco rtical white matter and caly, which are nonspecific, however likely represent moderate chronic microv ascular ischemia. No remote microhemorrhages. Moderate generalized cortical volume loss. Multiple chronic lacunar infarcts in the centrum semiovale, helms radiata, left caudate head, and le ntiform nuclei. Ventricles/Extra-axial Spaces: Ventricles are concordant with the degree of parenchymal volume loss. Normal basal cisterns. Sella/Skull Base: Pituitary and sella are normal on noncontrast exam. Paranasal Sinuses/Mastoids: Paranasal sinuses are clear. Small left and trace right mastoid effusion s. Orbits: Bilateral artificial lens replacements. Vasculature: Normal flow voids in the carotid arteries and basilar artery. Calvarium/Scalp: Normal marrow. No soft tissue swelling. Limited Cervical Spine: No significant abnormality. IMPRESSION: No acute intracranial abnormality. Multiple chronic lacunar infarcts. Moderate chronic microvascular ischemic white matter changes. Moderate generalized cortical volume loss.
--- NOTE | 2023-08-23 12:22 | ECHO2D ---
Date of Exam: 08/23/2023 Room #: 114 Ordering Physician: DR. SALES(PRIMARY CARE); Danny LUCIA APRN (HOSPITALIST) Reason for Echo: CEREBRAL VASCULAR ACCIDENT SYMPTOMS, DIABETES MELLITUS TYPE 2, HYPERTENSION, DYSLIPIDEMIA M-Mode Normal Adult Results LV Dimensions Normal Adult Results AoV Opening excursions >1.6 >1.6 LVEDD-base- 3.5-5.8 4.5 Ao root dimensions 2.0-3.7 3.6 LVESD-base- 3.1-4.6 L. Atrium dimensions 1.9-3.8 5.3 Post. Wall thickness 0.8-1.1 1.2 IV septum (thickness) 0.7-1.2 1.5 Post. Wall excursion 0.72-1.3 NORMAL Septal motion NORMAL Systolic motion R. Ventricular cavity 1.5-2.0 NORMAL LVEF 60% 78% Paradoxical septal wall motion NORMAL 2-D : 2-D M Mode Echocardiogram was performed using apical four chamber and left parasternal long and short axis views. Mitral, tricuspid and aortic valves appear to be normal. Contractility of the left ventricle seems to be normal, so is the cavity size. ENLARGED LEFT ATRIAL CAVITY OTHERWISE NORMAL. Aortic root appears to be normal. There is no pericardial effusion. There is no thrombus noted in the left ventricle or left atrial cavity. M-MODE: MV: NORMAL AV: NORMAL TV: NORMAL PV: NORMAL CHAMBER SIZE: ENLARGED LEFT ATRIAL CAVITY. WALL MOTION: NORMAL PERICARDIUM: NORMAL INTERPRETATION: 1. LEFT VENTRICULAR HYPERTROPHY WITH ENLARGED LEFT ATRIAL CAVITY. 2. NORMAL VALVES. 3. NORMAL LEFT VENTRICULAR CONTRACTILITY / NORMAL LEFT VENTRICLE SIZE. 4. PRACTICALLY UNCHANGED FROM 2020 E[facility]OCARDIOGRAM. [facility]
[2023-08-23 14:13] VITALS: TEMP 98
[2023-08-23 14:16] VITALS: BP 151/53; PULSE 77
== END 2023-08-23 14:00 | disposition home or self-care (01) ==
LOC: ED 06:18 → MEDSURG B 06:18
PROVIDERS: ADMIT Hospitalist; ATTEND Physician Assistant